=== PATIENT | female | born 1985 | race Caucasian/White ===

== ENCOUNTER 2021-06-03 22:02 | Emergency (ER) | payer OTHER, SELFPAY ==
--- NOTE | ~2021-06-03 | XR_ITS ---
EXAMINATION: XR chest 2V DATE: 06/03/2021 22:37 INDICATION: Chest pain TECHNIQUE: PA and lateral views of the chest are obtained. COMPARISON: None available FINDINGS: The lungs are free of acute opacities. There is no pleural effusion or pneumothorax. The ca rdiomediastinal silhouette is normal. The visualized bones and soft tissues are unremarkable. Surgica l clips in the right upper quadrant are likely from prior cholecystectomy. IMPRESSION: 1. No acute cardiopulmonary abnormality. Reviewed, dictated and finalized at location A.
--- NOTE | 2021-06-03 22:03 | ECG_ITS ---
Measurements Intervals [place] Rate: 79 P: 40 ME: 137 QRS: 2 QRSD: 87 T: 30 QT: 357 QTc: 411 Interpretive Statements SINUS RHYTHM INCOMPLETE RIGHT BUNDLE BRANCH BLOCK BORDERLINE ECG Electronically Signed On 06-04-2021 7:04:04 CDT by Star Bob D.O.
[2021-06-03 22:08] VITALS: BP 118/79; PULSE 86; RESP 18; TEMP 36.4; O2SAT 97
[2021-06-03 22:24] LABS: Basophils Percent Auto 0.3 % (0.2-1.2); Eosinophils Absolute Auto 0.2 K/mm3 (0-0.3); Eosinophils Percent Auto 1.4 % (0-4.4); Hematocrit 42.5 % (37.0-47.0); Hemoglobin 13.8 g/dL (12.0-15.0); Immature Granulocyte Absolute 0.07 K/mm3 (0.00-0.031); Immature Granulocyte Percent A 0.5 % (0-0.5); Immature Platelet Fraction Pct 9.8 % (0.9-11.2); Lymphocytes Absolute Auto 5.92 K/mm3 (0.9-3.2); Lymphocytes Percent Auto 38.6 % (18.3-44.2); Mean Corpuscular HGB Conc 32.5 g/dl (32-36); Mean Corpuscular Hemoglobin 29.7 pg (26-34); Mean Corpuscular Volume 91.6 fl (80-100); Mean Platelet Volume 11.1 fl (7.4-10.4); Monocytes Absolute Auto 0.8 K/mm3 (0.1-0.6); Monocytes Percent Auto 5.3 % (2.6-8.5); Neutrophils Absolute Auto 8.3 K/mm3 (1.3-6.7); Neutrophils Percent Auto 53.9 % (45.5-73.1); Platelet Count Result 143 k/mm3 (150-375); Red Blood Count 4.64 M/mm3 (4.2-5.4); Red Cell Distribution Width 13.2 % (11.5-14.5); White Blood Count 15.4 K/mm3 (4.5-10.0)
[2021-06-03 22:32] LABS: Anion Gap 10 mmol/L (8-16); Blood Urea Nitrogen 16 mg/dL (7-17); Calcium 8.8 mg/dL (8.4-10.2); Carbon Dioxide 28 mmol/L (22-30); Chloride 103 mmol/L (98-107); Estimated CRCL calculation 85 ml/min; Estimated Glomerular Filt Rate > 60; Glucose 106 mg/dL (65-110); INR 0.9; Partial Thromboplastin Time 24.1 SECONDS (22.3-36.8); Potassium 3.7 mmol/L (3.4-5.0); Sodium 141 mmol/L (137-145)
[2021-06-03 22:44] LABS: Troponin I < 0.012 ng/mL (0.000-0.034)
--- NOTE | 2021-06-04 00:55 | PC.NURSE ---
Pt stated that she had a ride coming and would not be waiting for a bed any longer. a/o x 4. good eye contact. ambulatory out of ED wr to wait for ride.
== END 2021-06-04 01:13 | disposition left against medical advice (07) ==
LOC: ANHED 06-04 01:06
PROVIDERS: Emergency Provider Emergency Medicine
DX: R07.9 Chest pain, unspecified (principal)
CPT/HCPCS: 36415; 71046; 80048; 84484; 85025; 85055; 85610; 85730; 93005; 99199

== ENCOUNTER 2021-06-05 13:46 | Emergency (ER) | payer OTHER, SELFPAY ==
[2021-06-05] VITALS (16 sets, daily range): BP systolic 121–144; BP diastolic 75–91; PULSE 94–112; RESP 12–20; TEMP 36.3–36.6; O2SAT 95–98
--- NOTE | ~2021-06-05 | CT_ITS ---
EXAMINATION: CTA chest PE protocol DATE: 06/05/2021 16:41 INDICATION: Shortness of breath. Chest pain. Elevated d-dimer. TECHNIQUE: Computed tomography (CT) pulmonary angiogram of the chest was performed with 100 mL Omnipa que-350 intravenous contrast. Additional 3D reconstructions utilizing coronal maximum intensity proje ction (MIP) were performed. Automated exposure control and iterative reconstruction technique were em ployed. The dose-length product was 643.33 mGy-cm. COMPARISON: None FINDINGS: Good contrast opacification of the pulmonary arteries. There is mild streak artifact from dense contr ast in the superior vena cava and right atrium. Mild scattered respiratory motion artifact. Overall t his is not significantly limit evaluation with no evident pulmonary embolism. Small lung volumes with mosaic attenuation likely representing slightly heterogeneous diffuse mild atelectasis related to ex piratory phase of imaging. Calcified left lower lobe nodule and calcified left hilar lymph nodes cons istent with old granulomatous disease. No other airspace disease concerning for pneumonia. No septal line thickening to suggest pulmonary edema. No pleural effusion or pneumothorax. Heart size is normal . No pericardial effusion. Thoracic aorta is normal in caliber with no dissection. No pathologically enlarged thoracic lymphadenopathy. Post cystectomy clips the gallbladder fossa. Bones are unremarkabl e. IMPRESSION: 1. No pulmonary embolism or other acute cardiopulmonary disease. Reviewed, dictated and finalized at location A.
--- NOTE | ~2021-06-05 | XR_ITS ---
EXAMINATION: XR chest 2V 06/05/2021 15:18 INDICATION: Medial chest pain PROCEDURE: 2 view chest COMPARISON: 06/03/2021 FINDINGS: The lungs are clear. The cardiomediastinal silhouette is within normal limits. There are no pleural effusions. There is no pneumothorax suspected. IMPRESSION: 1: NO ACUTE CARDIOPULMONARY DISEASE. Reviewed, dictated and finalized at location A.
--- NOTE | 2021-06-05 13:48 | ECG_ITS ---
Measurements Intervals [place] Rate: 93 P: 44 WI: 135 QRS: -4 QRSD: 80 T: 12 QT: 335 QTc: 417 Interpretive Statements SINUS RHYTHM DELAYED PRECORDIAL R/S TRANSITION BORDERLINE T WAVE ABNORMALITY- INFERIOR LEADS BORDERLINE ECG Electronically Signed On 06-05-2021 13:57:10 CDT by Star Bob D.O.
[2021-06-05 15:43] LABS: Basophils Percent Auto 0.2 % (0.2-1.2); Eosinophils Absolute Auto 0.4 K/mm3 (0-0.3); Hematocrit 42.1 % (37.0-47.0); Hemoglobin 13.8 g/dL (12.0-15.0); Immature Granulocyte Absolute 0.05 K/mm3 (0.00-0.031); Immature Granulocyte Percent A 0.4 % (0-0.5); Lymphocytes Absolute Auto 3.85 K/mm3 (0.9-3.2); Lymphocytes Percent Auto 30.8 % (18.3-44.2); Mean Corpuscular HGB Conc 32.8 g/dl (32-36); Mean Corpuscular Hemoglobin 29.1 pg (26-34); Mean Corpuscular Volume 88.8 fl (80-100); Mean Platelet Volume 10.3 fl (7.4-10.4); Monocytes Absolute Auto 0.6 K/mm3 (0.1-0.6); Monocytes Percent Auto 4.6 % (2.6-8.5); Neutrophils Absolute Auto 7.6 K/mm3 (1.3-6.7); Platelet Count Result 285 k/mm3 (150-375); Red Blood Count 4.74 M/mm3 (4.2-5.4); Red Cell Distribution Width 13.1 % (11.5-14.5); White Blood Count 12.5 K/mm3 (4.5-10.0)
[2021-06-05 15:53] LABS: INR 0.9; Partial Thromboplastin Time 27.6 SECONDS (22.3-36.8); Prothrombin Time 12.5 Seconds (11.1-14.7)
[2021-06-05 15:54] LABS: Anion Gap 9 mmol/L (8-16); Blood Urea Nitrogen 14 mg/dL (7-17); Calcium 8.8 mg/dL (8.4-10.2); Carbon Dioxide 25 mmol/L (22-30); Chloride 105 mmol/L (98-107); Estimated CRCL calculation 95 ml/min; Estimated Glomerular Filt Rate > 60; Glucose 101 mg/dL (65-110); Potassium 4.2 mmol/L (3.4-5.0); Sodium 139 mmol/L (137-145)
--- NOTE | 2021-06-05 16:03 | PC.NURSE ---
Called lab to request add on of D-Dimer
--- NOTE | 2021-06-05 16:03 | PC.NURSE ---
called lab to add on [email or web address]
[2021-06-05 16:06] LABS: Troponin I < 0.012 ng/mL (0.000-0.034)
[2021-06-05 16:14] LABS: D Dimer 0.54 ug/mL (<0.48)
--- NOTE | 2021-06-05 16:15 | PC.NURSE ---
No aspirin needed per MD.
--- NOTE | 2021-06-05 16:34 | ED.CHESTPAIN ---
HPI - Chest Pain General Chief Complaint: Chest Pain Stated Complaint: CP Time Seen by Provider: 06/05/21 15:37 History of Present Illness HPI narrative: Patient is a 36-year-old female who presents ER with chest pain. Reports began 2 days ago and is sharp and intense in the center of her chest. Is associate with some shortness of breath and sweating at that time. She came to the ER to be evaluated but there was a wait and a lot of Covid people came in so she opted to leave. She reports her pain has continued to improve over the last 2 days after contacting her PCP is recommend she come back to the ER to be evaluated. She has some mild dyspnea. No loss of consciousness. Denies fevers or chills or sweats. She has been noted to have an elevated heart rate while in the ER. She reports she has been having some cramping in her lower extremities. No history of PE. No lower extremity swelling. No recent long distance travel or immobilization/surgery. She does use control. Patient also reports pain is worse with physical movements of her arms. Also occasional with deep breath. Related Data Home Medications Medication Instructions Recorded Confirmed norethindrone-e.estradiol-iron tablet 06/05/21 06/05/21 Allergies Allergy/AdvReac Type Severity Reaction Status Date / Time No Known Allergies Allergy Verified 06/05/21 16:00 Review of Systems Review of Systems: All systems reviewed & are unremarkable except as noted in HPI and below Constitutional: Constitutional: Denies chills, Denies fever(s) and Denies weakness ENT: Denies nasal congestion and Denies sore throat Cardiovascular: Cardiovascular: Reports chest pain, Denies rapid heart rate and Denies radiating jaw, neck or arm pain Respiratory: Respiratory: Denies cough, Reports dyspnea and Denies wheezing Gastrointestinal: Gastrointestinal: Denies abdominal pain, Denies diarrhea, Denies nausea and Denies vomiting [facility] Past Medical History Medical History (Updated 06/05/21 @ 17:06 by Grayson Henrandez MD) Healthy female adult Surgical History Surgical History (Updated 06/05/21 @ 16:37 by Grayson Hernandez MD) History of section History of cholecystectomy Family History Family History (Updated 12/25/17 @ 20:35 by DOCTOR UNKNOWN) Mother Colon polyp Other Asthma Diabetes mellitus Social History Social History Smoking status: Former smoker Second hand tobacco smoke exposure: No Smoking end date: 09/16/16 Alcohol intake: current Exam Narrative: GENERAL: Well-appearing, well-nourished, and in no acute distress. HEAD: Normocephalic, atraumatic. NECK: Supple. CHEST: Clear to auscultation. No respiratory distress. Tender palpation anterior chest wall moving to left side. HEART: Regular rate and rhythm. Normal peripheral pulses. ABDOMEN: Soft, nontender, nondistended. EXTREMITIES: Normal range of motion. No edema. SKIN: Warm, dry, no rash. NEURO: Alert and oriented x3. PSYCH: Normal mood and affect. Course Course Emergency Course: Patient informed results. Toradol for pain. Discharge home. Vital Signs Vital signs: Vital Signs Temperature 98 F 06/05/21 13:54 Pulse Rate 97 06/05/21 13:54 Respiratory Rate 18 06/05/21 13:54 Blood Pressure 130/75 06/05/21 13:54 Pulse Oximetry 96 06/05/21 13:54 Temperature 98 F 06/05/21 13:54 Pulse Rate 99 06/05/21 15:59 Respiratory Rate 18 06/05/21 15:55 Blood Pressure 135/91 H 06/05/21 15:55 Pulse Oximetry 97 06/05/21 15:55 MDM - Chest Pain Lab Data Result diagrams: 06/05/21 15:32 06/05/21 15:32 Labs: Lab Results 06/05/21 06/05/21 06/05/21 Range/Units 15:32 15:32 15:32 WBC 12.5 H (4.5-10.0) K/mm3 RBC 4.74 (4.2-5.4) M/mm3 Hgb 13.8 (12.0-15.0) g/dL Hct 42.1 (37.0-47.0) % MCV 88.8 (80-100) fl MCH 29.1 (26-34) pg MCHC 32.8 (32-36) g/dl RDW 13.1 (11.5-14.5)
[2021-06-05] MEDS: KETOROLAC 30 MG/ML VIAL (*BKC) IV PUSH (17:07)
== END 2021-06-05 17:45 | disposition home or self-care (01) ==
PROVIDERS: Emergency Medicine; Emergency Provider Emergency Medicine; PCP Nurse Practitioner Family
DX: R07.89 Other chest pain (principal); Z87.891 Personal history of nicotine dependence; R94.31 Abnormal electrocardiogram [ECG] [EKG]
CPT/HCPCS: 36415; 71046; 71275; 80048; 81025; 84484; 85025; 85380; 85610; 85730; 93005; 96374; 99284; J1885; Q9967

== ENCOUNTER 2022-12-17 14:39 | Outpatient (CLI) | payer OTHER, SELFPAY ==
--- NOTE | ~2022-12-17 | US_ITS ---
EXAMINATION: US OB transvaginal DATE: 12/17/2022 14:59 INDICATION: First trimester dating TECHNIQUE: Real-time pelvic transabdominal and transvaginal ultrasound was performed. COMPARISON: None. FINDINGS: The uterus measures 11.7 x 6.6 x 7.5 cm. There is an intrauterine gestational sac. A yolk s ac is identified. heart motion is identified measuring 180 beats per minute (bpm) by M-mode Dop pler. The crown rump length measures 1.6 cm, which correlates with an estimated gestational age of 8 weeks and 0 day(s) (+/-) 5 day(s). The right ovary is not visualized however no right adnexal abnormality is seen. The left ovary measur es 3.2 x 2.2 x 3.8 cm. There is normal vascular flow in the left ovary. There is no free fluid in the pelvis. IMPRESSION: 1. Live intrauterine with an estimated gestational age of 8 weeks and 0 day(s) (+/-) 5 day( s) and an estimated delivery date of 07/29/2023. Reviewed, dictated and finalized at location L. IMPRESSION: 1. Live intrauterine with an estimated gestational age of 8 weeks and 0 day(s) (+/-) 5 day(s) and an estimated delivery date of 07/29/2023.
== END 2022-12-17 14:40 ==
LOC: MICIMG 14:40
PROVIDERS: PCP Advanced Practice Midwife; Visit Provider Advanced Practice Midwife
DX: O36.80X0 Pregnancy with inconclusive fetal viability, not applicable or unspecified (principal); Z3A.08 8 weeks gestation of pregnancy
CPT/HCPCS: 76817

== ENCOUNTER 2023-03-07 18:27 | Emergency (ER) | payer OTHER, SELFPAY ==
[2023-03-07 18:33] VITALS: BP 115/63; PULSE 124; RESP 18; TEMP 36.6; O2SAT 99
--- NOTE | 2023-03-07 19:20 | PC.NURSE ---
Pt just informed this RN that she is 20 weeks today, this was not mentioned in triage note.
[2023-03-07 19:21] VITALS: BP 106/70; PULSE 98; RESP 14; O2SAT 99
--- NOTE | 2023-03-07 19:52 | ED.GENADULT ---
HPI - General Adult General Chief complaint: Abdominal Pain Stated complaint: epigastric pain Time Seen by Provider: 03/07/23 19:05 History of Present Illness HPI narrative: this is a pleasant 38-year-old 003 at 20 weeks presenting with epigastric pain. Patient's abdominal pain started 2 hours ago it is located in the epigastric area. Started while she was waving at her dogs. Is a sharp pain that radiates down into her belly when she walks. Seven out 10 in intensity and constant. She has never had pain like this before. She is not taking anything for pain control. Pain is distinctly link to movement. She denies fever chills nausea vomiting or diarrhea. She still feels the baby the baby moving. No urinary symptoms vaginal bleeding or discharge. She had an ultrasound this morning found of the baby was a boy. Related Data Home Medications Medication Instructions Recorded Confirmed norethindrone 1 mg-e. estradiol 20 tablet 06/05/21 06/05/21 mcg (24)-iron 75 mg (4) chew tablet Allergies Allergy/AdvReac Type Severity Reaction Status Date / Time No Known Allergies Allergy Verified 12/13/21 13:12 [facility] Past Medical History Medical History (Updated 03/07/23 @ 19:56 by Denver Leahy MD) Healthy female adult Surgical History Surgical History (System 12/13/21 @ 13:12 by Brenda Jain) History of section History of cholecystectomy Family History Family History (System 12/13/21 @ 13:12 by Brenda Jain) Mother Colon polyp Other Asthma Diabetes mellitus Social History Social History (System 12/13/21 @ 13:12 by Brenda Jain) Smoking status: Former smoker Second hand tobacco smoke exposure: No Smoking end date: 09/16/16 Alcohol intake: current Exam Narrative: APPEARANCE: No apparent distress. Patient is well-appearing Head: atraumatic. EYES: EOMI, NOSE: Atraumatic NECK: Trachea midline RESPIRATORY: No increased rate of breathing CARDIOVASCULAR: RRR, ABDOMINAL: mild tenderness in the epigastric area, no tenderness over the uterus or the rest the abdomen. No guarding or rebound. MUSCULOSKELETAl: No obvious deformities NEURO: Alert. Moving 4/4 extremities SKIN:: Warm, dry. Normal color PSYCHIATRIC: Normal affect Course Vital Signs Vital signs: Vital Signs Temperature 98 F 03/07/23 18:33 Pulse Rate 124 H 03/07/23 18:33 Respiratory Rate 18 03/07/23 18:33 Blood Pressure 115/63 03/07/23 18:33 Pulse Oximetry 99 03/07/23 18:33 Oxygen Delivery Room Air 03/07/23 18:33 Temperature 98 F 03/07/23 18:33 Pulse Rate 87 03/07/23 21:31 Respiratory Rate 18 03/07/23 21:31 Blood Pressure 107/69 03/07/23 21:31 Pulse Oximetry 100 03/07/23 21:31 Oxygen Delivery Room Air 03/07/23 18:33 Medical Decision Making MDM Narrative Medical decision making narrative: -Presentation: 38-year-old woman presenting with sharp epigastric pain. Basic lab work, Tylenol Pepcid and Maalox been given. heart tones will be obtained. Patient is well-appearing with normal vital signs and likely be discharged with OBGYN follow-up. 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 Dx tests considered but not ordered: none -Procedures: none -Interventions: Tylenol, Pepcid, Maalox, 1 L normal saline -Shared decision making / Disposition: laboratory studies were normal. Patient's pain is improv
[2023-03-07] MEDS: SODIUM CHLORIDE 0.9% IV 1,000 ML 999 ML IV CONT (20:29)
[2023-03-07] MEDS: ACETAMINOPHEN 500 MG TABLET 1000 MG PO (20:30)
[2023-03-07] MEDS: FAMOTIDINE 20 MG/2 ML VIAL IV PUSH (20:30)
[2023-03-07] MEDS: MAG HYDROX/AL HYDROX/SIMETH 30 ML UDC PO (20:30)
[2023-03-07 20:35] LABS: Basophils Percent Auto 0.1 % (0.2-1.2); Eosinophils Absolute Auto 0.4 K/mm3 (0-0.3); Eosinophils Percent Auto 3.9 % (0-4.4); Hematocrit 32.2 % (37.0-47.0); Hemoglobin 10.4 g/dL (12.0-15.0); Immature Granulocyte Absolute 0.05 K/mm3 (0.00-0.031); Immature Granulocyte Percent A 0.5 % (0-0.5); Lymphocytes Absolute Auto 2.77 K/mm3 (0.9-3.2); Lymphocytes Percent Auto 25.6 % (18.3-44.2); Mean Corpuscular HGB Conc 32.3 g/dl (32-36); Mean Corpuscular Hemoglobin 27.7 pg (26-34); Mean Corpuscular Volume 85.9 fl (80-100); Mean Platelet Volume 10.8 fl (7.4-10.4); Monocytes Absolute Auto 0.7 K/mm3 (0.1-0.6); Monocytes Percent Auto 6.1 % (2.6-8.5); Neutrophils Absolute Auto 6.9 K/mm3 (1.3-6.7); Neutrophils Percent Auto 63.8 % (45.5-73.1); Platelet Count Result 308 k/mm3 (150-375); Red Blood Count 3.75 M/mm3 (4.2-5.4); Red Cell Distribution Width 14.7 % (11.5-14.5); White Blood Count 10.8 K/mm3 (4.5-10.0)
[2023-03-07 20:43] LABS: Alanine Aminotransferase 16 U/L (6-35); Albumin Level 3.5 g/dL (3.5-5.1); Alkaline Phosphatase 69 U/L (38-126); Anion Gap 4 mmol/L (8-16); Aspartate Amino Transferase 21 U/L (14-36); Bilirubin,Total 0.1 mg/dL (0.2-1.3); Blood Urea Nitrogen 6 mg/dL (7-17); Calcium 8.3 mg/dL (8.4-10.2); Carbon Dioxide 25 mmol/L (22-30); Chloride 107 mmol/L (98-107); Estimated CRCL calculation 139 ml/min; Estimated Glomerular Filt Rate > 60; Glucose 85 mg/dL (65-110); Lipase 60 U/L (23-300); Potassium 3.7 mmol/L (3.4-5.0); Sodium 136 mmol/L (137-145)
[2023-03-07 21:31] VITALS: BP 107/69; PULSE 87; RESP 18; O2SAT 100
[2023-03-07 22:16] VITALS: BP 118/83; PULSE 89; RESP 16; O2SAT 100
== END 2023-03-07 22:31 | disposition home or self-care (01) ==
PROVIDERS: Emergency Provider Emergency Medicine; PCP Nurse Practitioner Family
DX: O26.892 Other specified pregnancy related conditions, second trimester (principal); R10.13 Epigastric pain; Z87.891 Personal history of nicotine dependence; Z90.49 Acquired absence of other specified parts of digestive tract; Z3A.20 20 weeks gestation of pregnancy
CPT/HCPCS: 36415; 80053; 83690; 85025; 96361; 96374; 99284; A9270; J7030

== ENCOUNTER 2023-06-01 14:17 | Outpatient (RCR) | payer OTHER, SELFPAY ==
--- NOTE | ~2023-06-01 | US_ITS ---
EXAMINATION: US OB limited DATE: 06/01/2023 15:52 INDICATION: Decreased movement during third trimester . TECHNIQUE: Real-time ultrasound of the pelvis was performed. The interpreting radiologist was not pre sent for the study. COMPARISON: None. FINDINGS: There is a single living fetus in vertex presentation. The placenta is fundal. heart rate is 1 35 beats per minute (bpm). The amniotic fluid index is 17.0 cm, which is normal (5th%-95%: 8.6-24.2 c m at 32 weeks estimated gestational age). IMPRESSION: 1. Single living fetus in vertex presentation with heart rate of 135 bpm. 2. Normal amniotic fluid index of 17.0 cm. Reviewed, dictated and finalized at location A.
[2023-06-01 16:25] VITALS: BP 97/60; PULSE 48
== END 2023-08-01 10:51 | disposition home or self-care (01) ==
LOC: ANHOBOP 14:17
PROVIDERS: PCP Nurse Practitioner Family; Visit Provider Obstetrics & Gynecology Gynecology
DX: O36.8190 Decreased fetal movements, unspecified trimester, not applicable or unspecified (principal); Z3A.32 32 weeks gestation of pregnancy
CPT/HCPCS: 59025; 76815

== ENCOUNTER 2023-07-05 10:32 | Observation (INO) | payer OTHER, SELFPAY ==
[2023-07-05 11:15] VITALS: BP 99/66; PULSE 104
[2023-07-05 11:30] VITALS: BP 104/69; PULSE 101
[2023-07-05 11:45] VITALS: BP 102/69; PULSE 95
[2023-07-05 12:00] VITALS: BP 107/66; PULSE 102
[2023-07-05 12:15] VITALS: BP 105/71; PULSE 93
--- NOTE | 2023-07-08 10:13 | PM.OBTRLD ---
OB - Triage/Final Diagnosis Visit Information Reason for evaluation: other (vaginal bleeding) Comments/Additional reasons for admission: I have assessed the risk for this patient, Hedy Tamera Luna, and determined that she would benefit from observation care.
== END 2023-07-05 12:40 | disposition home or self-care (01) ==
PROVIDERS: Admitting Provider Obstetrics & Gynecology Gynecology; PCP Nurse Practitioner Family; Visit Provider Obstetrics & Gynecology Gynecology
DX: O26.853 Spotting complicating pregnancy, third trimester (principal); Z3A.37 37 weeks gestation of pregnancy
CPT/HCPCS: G0378; G0379

== ENCOUNTER 2023-07-15 09:05 | Outpatient (CLI) | payer OTHER, SELFPAY ==
[2023-07-15 09:48] LABS: Basophils Percent Auto 0.1 % (0.2-1.2); Eosinophils Absolute Auto 0.3 K/mm3 (0-0.3); Eosinophils Percent Auto 2.7 % (0-4.4); Hematocrit 37.2 % (37.0-47.0); Hemoglobin 11.8 g/dL (12.0-15.0); Immature Granulocyte Absolute 0.08 K/mm3 (0.00-0.031); Immature Granulocyte Percent A 0.7 % (0-0.5); Lymphocytes Absolute Auto 2.36 K/mm3 (0.9-3.2); Lymphocytes Percent Auto 21.5 % (18.3-44.2); Mean Corpuscular HGB Conc 31.7 g/dl (32-36); Mean Corpuscular Hemoglobin 28.6 pg (26-34); Mean Corpuscular Volume 90.1 fl (80-100); Mean Platelet Volume 11.9 fl (7.4-10.4); Monocytes Absolute Auto 0.6 K/mm3 (0.1-0.6); Monocytes Percent Auto 5.1 % (2.6-8.5); Neutrophils Absolute Auto 7.7 K/mm3 (1.3-6.7); Neutrophils Percent Auto 69.9 % (45.5-73.1); Platelet Count Result 205 k/mm3 (150-375); Red Blood Count 4.13 M/mm3 (4.2-5.4); Red Cell Distribution Width 15.2 % (11.5-14.5)
[2023-07-16 14:26] LABS: Rapid Plasma Reagin Non-Reactive (NonReactive)
== END 2023-07-15 09:06 | disposition home or self-care (01) ==
PROVIDERS: PCP Nurse Practitioner Family; Visit Provider Obstetrics & Gynecology Gynecology
DX: Z01.818 Encounter for other preprocedural examination (principal)
CPT/HCPCS: 36415; 85025; 86592; 86850; 86900; 86901

== ENCOUNTER 2023-07-17 05:28 | Inpatient (IN) | payer OTHER, SELFPAY ==
--- NOTE | 2023-07-16 18:10 | PM.IMHP ---
H&P: HPI History of Present Illness Date/Time: 07/16/23 18:10 Chief Complaint: repeat csection and sterilization Narrative: 38 yo at 39 wks presenting for repeat csection and bilateral salpingectomy. Patient complicated by a velementous insertion of her placenta and AMA. Level 2 u/s's with Belinda have shown good growth. labs: O+, Rubella immune, RPR -, HIV -, HBSAg -, GBS -. She has completed her childbearing and wishes to proceed with permanent sterilization. Risks of failure and increased ectopic as well as risks of 4th csection were reviewed. Review of Systems Review of Systems: not repeated day of surgery; patient states no changes in status PMFSH Past Medical History Medical History (Updated 07/16/23 @ 18:18 by Sofie Silverman MD) Advanced maternal age (AMA) in Surgical History Surgical History (Updated 07/16/23 @ 18:18 by Sofie Silverman MD) History of section x3 History of cholecystectomy Family History Family History (Updated 07/03/23 @ 13:46 by Franci Leonardo RN) Mother Colon polyp Grandparent Diabetes mellitus Son Asthma Social History Social History (System 12/13/21 @ 13:12 by Brenda Jain) Smoking status: Former smoker Second hand tobacco smoke exposure: No Smoking end date: 09/16/16 Alcohol intake: current Substance use: never Spiritual care concerns: No Meds Home Medications and Allergies Home Medications Medication Instructions Recorded Confirmed Type albuterol sulfate 90 mcg/actuation 2 puff inhalation QID PRN Wheezing 07/03/23 07/03/23 History aerosol inhaler aspirin 81 mg tablet 81 mg PO DAILY 07/03/23 07/03/23 History cholecalciferol (vitamin D3) 1,250 1,250 mcg PO WEEKLY 07/03/23 07/03/23 History mcg (50,000 unit) tablet ferrous sulfate 325 mg (65 mg 325 mg PO DAILY 07/03/23 07/03/23 History iron) tablet prenat.vits,armin,nra-lfdw-avamd 1 tablet 07/03/23 History Allergies Allergy/AdvReac Type Severity Reaction Status Date / Time No Known Allergies Allergy Verified 12/13/21 13:12 Exam Const: General: healthy appearing, alert and other (weight 218 (prepreg wt. 200)) Orientation/consciousness: patient oriented x3 Resp: Effort & Inspection: normal respiratory effort GI: GI Palp: Yes Soft to palpation, No Tenderness to palpation present (GI) and Yes Other GI palpation findings present (gravid with fundal height 40) : External Female Exam: normal external appearance Neuro: General: patient oriented x3 Assessment and Plan Assessment and plan (1) 39 weeks gestation of : Code(s): Z3A.39 - 39 weeks gestation of Status: Acute (2) History of section: Code(s): Z98.891 - History of uterine scar from previous surgery Status: Acute Assessment and Plan: Plan to proceed with repeat csection (3) Encounter for sterilization: Code(s): Z30.2 - Encounter for sterilization Status: Acute Assessment and Plan: plan to proceed with salpingectomy
[2023-07-17] VITALS (39 sets, daily range): BP systolic 90–118; BP diastolic 43–87; PULSE 75–111; RESP 12–16; TEMP 36.1–37; O2SAT 94–99; BMI 38.6
[2023-07-17] MEDS: LACTATED RINGERS 1,000 ML 125 ML IV CONT ×2 (06:19→07:11)
--- NOTE | 2023-07-17 06:21 | LDADM ---
This patient, Hedy Luna, was admitted to Labor/Delivery/Recovery 120 on 07/17/23 at 05:28. Plans for labor, pain management and were discussed with patient. Patient/family oriented to hospital policies and general routines including ID bracelet, bed and alarms, visiting hours, pain management, procedures, bathroom and other care routines, personal items, smoking policy, room service/diet and guest tray routines, security routines, and visiting hours. Patient/Family are encouraged to report perceived risks to care and to ask questions if they do not understand what they are told or what they should do. See OBIX for further documentation.
--- NOTE | 2023-07-17 06:34 | WPDANESEPPF ---
Anes - Initial Pre Proc Eval Procedure: Operation Date: 07/17/23 07:30 Proposed Procedures p Section with Bilateral Salpingectomy - Sofie Silverman MD Date/Time: 07/17/23 06:34 Surgeon: Sofie Silverman MD Pre Op Diagnosis: Rep. Patient Data Age: 38 Gender: F Height: 1.6 m Weight: 99 kg Last Vital Signs O2 Del Method Room Air 07/17/23 06:21 Allergies Allergy/AdvReac Type Severity Reaction Status Date / Time No Known Allergies Allergy Verified 12/13/21 13:12 Home Medications Medication Instructions Recorded Confirmed Type albuterol sulfate 90 mcg/actuation 2 puff inhalation QID PRN Wheezing 07/03/23 07/03/23 History aerosol inhaler aspirin 81 mg tablet 81 mg PO DAILY 07/03/23 07/03/23 History cholecalciferol (vitamin D3) 1,250 1,250 mcg PO WEEKLY 07/03/23 07/03/23 History mcg (50,000 unit) tablet ferrous sulfate 325 mg (65 mg 325 mg PO DAILY 07/03/23 07/03/23 History iron) tablet prenat.vits,armin,eos-gsko-nurmr 1 tablet 07/03/23 History Patient hx anesthesia problems: none Family hx anesthesia problems: none Results Review: All pre-operative results and documents have been reviewed as part of the pre-operative evaluation. [facility], [facility] Past Medical History Medical History (Updated 07/17/23 @ 06:36 by Brown Huff DO) Advanced maternal age (AMA) in Asthma Surgical History Surgical History (Updated 07/16/23 @ 18:18 by Sofie Silverman MD) History of section x3 History of cholecystectomy Family History Family History (Updated 07/03/23 @ 13:46 by Franci Leonardo RN) Mother Colon polyp Grandparent Diabetes mellitus Son Asthma Social History Social History (System 12/13/21 @ 13:12 by Brenda Jain) Smoking status: Never smoker Second hand tobacco smoke exposure: No Smoking end date: 09/16/16 Alcohol intake: current Substance use: never Lack of Transportation: No Lack of Food: Never True Current Housing: I Have Housing Concerned About Future Housing: No Difficulty Paying Gas/Electric Bills: No Difficulty Paying for Meds: No Currently Unemployed: No Education: Associate Degree Difficulty w/ Childcare or Family Care: No Spiritual care concerns: No Anes - Eval Final PreProcedure Day of Procedure 07/17/23 06:34 Patient weight: obese Heart: regular rate and rhythm Lungs: clear to auscultation and normal air movement Airway: Mallampati scale class II Neurological: alert and oriented Last oral intake: >/= 8 hours ASA classification: II Emergent: no Anesthetic plan: proceed Anesthesia type and monitoring: regional spinal and standard monitoring Results Review: All pre-operative results and documents have been reviewed as part of the pre-operative evaluation. Informed Consent: The patient's anesthetic plan and its attendant risks and benefits were discussed with the patient/family/POA. Questions were solicited and answers provided to the satisfaction of the patient/family/POA.
--- NOTE | 2023-07-17 07:07 | WPDHPUPDATE1 ---
History and Physical Update Update Date/Time: 07/17/23 07:07 History and Physical has been reviewed, including an updated exam of the patient. There are NO changes in the patient's condition. Risks, benefits, and alternatives have been discussed and questions answered. Patient agrees to proceed with procedure.
[2023-07-17] MEDS: ceFAZolin 2 GM/D5W 50 ML 2 GM/50 ML BAG IVPB (07:28)
--- NOTE | 2023-07-17 08:27 | W.PM.PROC2 ---
Procedure Note - Detailed Date of Procedure 07/17/23 Pre-op Diagnosis Intrauterine at 39 weeks Previous section x3 Request sterilization Post-op Diagnosis Same Procedure Performed Repeat low-transverse section and bilateral salpingectomy Surgeon Sofie Silverman MD Anesthesia Spinal Findings Male infant with Apgars of 8 at 1 and 9 ci4tthxam weighing 7lb 7oz. Placenta is filamentous insertion. Lower uterine segment was very thin and the hair was visible through the uterine muscle. Meconium fluid. Normal-appearing tubes and ovaries. Description of Procedure The patient is taken to the operating room and placed under anesthesia in the dorsal supine position with a leftward tilt. Once anesthesia was deemed adequate she was prepped and draped in the usual sterile fashion. Pfannenstiel skin incision was made through the prior upper incision. The incision was carried down to the fascia which was nicked in the midline and extended with Corbin scissors. [facility] was used to tent the fascia which was then dissected off using sharp dissection due to adhesions. The rectus muscles were densely adherent in the midline and are incised with a scalpel. The Peon was then able to be used to separate them. The incision is extended between the muscles bluntly. The peritoneum was tented with a Peon and entered with Metzenbaum scissors. The incision was extended with blunt traction. The bladder blade is placed. The vesicouterine peritoneum was tented and entered with Metzenbaum scissors. The incision was extended laterally and bladder flap created digitally. Lower urine segment is very thin upon inspection. The lower uterine segment was incised with a scalpel and extended laterally. Membranes are ruptured during this process. The fluid is meconium stained. The vertex is guided through the incision as the technical services assistant applied fundal pressure. The remainder of the delivered quickly and the delayed cord clamping for [id number] occurred. The cord was then clamped and cut and the handed to the OB nurse. The placenta is attempted to be removed using manual traction with the cord immediately avulsed as it is very minimally attached with Brazos's jelly and is a velamentous insertion. The placenta was then removed manually. The uterus is cleared of all clots and debris and exteriorized. The uterine incision was closed using 0 Monocryl in a running locked fashion with the same suture used to imbricate and obtain hemostasis. The right tube was then grasped with a Javi the majority of the distal tube cross clamped at the mesosalpinx with a Z clamp. The tube was excised and the pedicle suture ligated and free tied with 0 Vicryl. The identical procedure was then performed on the left side. Good hemostasis is noted at both pedicles. The uterine incision was again inspected noted to be hemostatic. The cul-de-sac and gutters are irrigated. The uterus was returned to the abdomen. The incision was again inspected noted to be hemostatic. The fascia was closed using 0 Vicryl in a running fashion. Subcutaneous tissues were irrigated and noted to be hemostatic. Skin is closed using 4-0 Vicryl in a subcuticular fashion. Dermaflex was placed over the incision. Sponge, needle, and instrument counts are correct per the OR staff. Patient was taken to recovery in stable condition. Estimated Blood Loss 290 Drains Yes (Sutherland catheter) Pathology Yes (Bilateral tubes) Complications No immediate complications Condition Stable Disposition Floor
--- NOTE | 2023-07-17 08:33 | PM.OBDSVD ---
DS: Admitting Diagnosis Discharge Date 07/19/23 Admitting Diagnosis Intrauterine at 39 weeks Previous x3 Request sterilization DS: Discharge Diagnosis Discharge Diagnosis (1) Delivery by section using transverse incision of lower segment of uterus: Code(s): O82 - Encounter for delivery without indication Status: Acute (2) Status post bilateral salpingectomy: Code(s): Z90.79 - Acquired absence of other genital organ(s) Status: Acute OB - DS: Summary OB Procedures : NST and Ultrasound OB Procedures Intrapartum: low cervical, transverse and Tubal ligation ( bilateral salpingectomy) OB Procedures: : None Peripartum Data Delivery Method: Section Procedures: Procedures Operation Date: 07/17/23 07:30 <No data on this case meets the specified criteria> complications: none Status at Discharge Functional status at discharge: independent ambulation Overall status at discharge: patient is progressing back to baseline Time Spent with Patient Time attestation: Total time spent providing and/or coordinating discharge services: Discharge Plan Discharge Attending physician on discharge: Sofie Silverman Discharging Clinician: Sofie Silverman Anticipated Discharge Date/Time: 07/19/23 08:35 Patient Disposition: Home, Self-Care Activity: may shower, may drive after 2 weeks and pelvic rest Diet: regular Wound Care Instructions: incision open to air Patient Instructions: Antibiotic Form Stand Alone Forms: General Discharge Information Follow-up/Referrals: Sofie Silverman MD [Physician] - 1 Week (And 6 week) Discharge Medications: Continued ferrous sulfate 325 mg (65 mg iron) Tablet 325 mg PO DAILY prenat.vits,armin,[id number] Tablet 1 tablet cholecalciferol (vitamin D3) 1,250 mcg (50,000 unit) Tablet 1,250 mcg PO WEEKLY albuterol sulfate 90 mcg/actuation Hfa Aerosol Inhaler 2 puff INHALATION QID PRN (Reason: Wheezing) Discontinued aspirin 81 mg Tablet 81 mg PO DAILY Date of admission: 07/17/23 05:28 Primary Care Provider: TaylorHailey Admitting Provider: Sofie Silverman Attending physician on admission: Sofie Silverman Condition: Stable
[2023-07-17] MEDS: OXYTOCIN 30 UNITS/NS 500 ML 30 UNITS/500 ML BAG 125 UNITS IV CONT (09:05)
[2023-07-17] MEDS: MORPHINE SULFATE INJ (*CRX) 10 MG/ML AMP 2 MG IV PUSH (10:00)
[2023-07-17] MEDS: KETOROLAC 30 MG/ML VIAL (*BKC) IV PUSH ×2 (11:32→19:45)
[2023-07-17] MEDS: ONDANSETRON INJ 4 MG/2 ML VIAL IV PUSH (13:04)
[2023-07-18 05:00] VITALS: BP 118/79; PULSE 78; RESP 16; TEMP 36.8
[2023-07-18] MEDS: KETOROLAC 30 MG/ML VIAL (*BKC) IV PUSH (05:00)
[2023-07-18 05:17] LABS: Basophils Percent Auto 0.1 % (0.2-1.2); Eosinophils Absolute Auto 0.2 K/mm3 (0-0.3); Eosinophils Percent Auto 1.3 % (0-4.4); Hematocrit 32.4 % (37.0-47.0); Hemoglobin 10.4 g/dL (12.0-15.0); Immature Granulocyte Absolute 0.06 K/mm3 (0.00-0.031); Immature Granulocyte Percent A 0.5 % (0-0.5); Lymphocytes Percent Auto 15.2 % (18.3-44.2); Mean Corpuscular HGB Conc 32.1 g/dl (32-36); Mean Corpuscular Hemoglobin 28.8 pg (26-34); Mean Corpuscular Volume 89.8 fl (80-100); Mean Platelet Volume 11.8 fl (7.4-10.4); Monocytes Absolute Auto 0.6 K/mm3 (0.1-0.6); Monocytes Percent Auto 4.9 % (2.6-8.5); Neutrophils Absolute Auto 9.8 K/mm3 (1.3-6.7); Platelet Count Result 169 k/mm3 (150-375); Red Blood Count 3.61 M/mm3 (4.2-5.4); White Blood Count 12.5 K/mm3 (4.5-10.0)
[2023-07-18 07:04] VITALS: BP 86/54; PULSE 90; RESP 18; TEMP 36.3; O2SAT 97
[2023-07-18] MEDS: DOCUSATE SODIUM 100 MG CAPSULE PO ×2 (08:26→16:41)
[2023-07-18] MEDS: MULTIVIT/MIN/PREN/FOL AC/IRON TABLET 1 TAB PO (08:26)
[2023-07-18] MEDS: ACETAMINOPHEN 325 MG TABLET 650 MG PO ×3 (08:26→23:52)
[2023-07-18] MEDS: LANOLIN (LANSINOH) 7.5 GM CREAM 1 APPLIC TOPICAL (08:27)
--- NOTE | 2023-07-18 08:49 | P.PNOB_ITS ---
OB - PN: Subj Subjective Date/time seen: 07/18/23 08:49 Patient comments: no complaints and pain well controlled baby status: doing well OB - PN: Obj Data Labs 07/18/23 05:05 Labs: Laboratory Results - last 24 hr 07/18/23 05:05 WBC 12.5 H RBC 3.61 L Hgb 10.4 L Hct 32.4 L MCV 89.8 MCH 28.8 MCHC 32.1 RDW 15.0 H Plt Count 169 MPV 11.8 H Immature Gran % (Auto) 0.5 Neut % (Auto) 78.0 H Lymph % (Auto) 15.2 L [place] % (Auto) 4.9 Eos % (Auto) 1.3 Baso % (Auto) 0.1 L Lymph # (Auto) 1.90 [place] # (Auto) 0.6 Eos # (Auto) 0.2 Baso # (Auto) 0.0 Abs Immat Gran (auto) 0.06 H Absolute Neuts (auto) 9.8 H Absolute Nucleated RBC 0.0 Nucleated RBC % 0.0 OB - PN A/P Plan day: 1 Plan: routine care Time Spent With Patient Time: Total time spent is greater than 50% in coordination of care (as documented) at patient's floor/unit and/or counseling patient: Exam Narrative: inc c/d/i : Bimanual exam- vagina & uterus: other (Uterus firm, nt @U)
--- NOTE | 2023-07-18 14:03 | PC.NURSE ---
0845 Introductions were made, then consulted with patient to assess needs related to . Mother led the conversation with her?plans to feed?her and the?experience so far. Mother works well with her with encouragement and education. Encouraged understanding of the benefits of skin to skin (demonstrating unwrapping and placing upright on her chest), stimulating with massage touch, changing positions to encourage wakefulness, how to watch for early feeding cues, responsive feeding, feeding on demand (aiming for 8-12 times in 24 hours, about every 2-3 hours), milk production, building/maintaining a milk supply, duration of feeding, signs of adequate intake/output and how to record on the feeding sheet. Reviewed positioning and ear, shoulder, hip alignment, supporting the breast to facilitate a deep latch, asymmetrical latch (off-center), leading with the chin with a big, open, wide gape and body close to mother. Infant latched optimally to the right and left breast in football position. Education given to mother of how to visualize suck/swallow ratios and listen for drinking at the breast. Infant was able to maintain latch without discomfort to mother. Nipple care reviewed with optimal latch and good positioning. Reminding mother of comfort measures of healing with a warm and wet washcloth to rinse breast, then leave open to air-dry as needed. Reviewed good handwashing when or touching the breast/nipples to prevent infection. Resources used to facilitate learning were used with the visual handouts/ tool/mom and baby guide. Mother voiced understanding of skin to skin, stimulating with massage touch, responsive feedings, hand expressed colostrum, talking to infant to encourage if it has been 2 -2.5 hours since the start of the last , to call if does not latch, or if there is discomfort with . Resources provided for inpatient/outpatient with business card, feeding sheet and the mom/baby guide. Parents voiced understanding of information, demonstrated learning and will call if there is a request for assistance. Reported to primary RN.
--- NOTE | 2023-07-18 14:10 | WPDANLDPN2 ---
Anes-Prog Note L&D Date/Time: 07/18/23 14:10 Neuro status: Neuro function grossly intact. Vital Signs: Last Vital Signs Temp 36.3 C L 07/18/23 07:04 Pulse 90 07/18/23 07:04 Resp 18 07/18/23 07:04 BP 86/54 L 07/18/23 07:04 Pulse Ox 97 07/18/23 07:04 O2 Del Method Room Air 07/17/23 08:40 Pain score (VAS): 0 I/O: Intake & Output 07/17/23 07/18/23 07/18/23 23:59 07:59 15:59 Intake Total 1000 1000 Output Total 425 1500 500 Balance 575 -500 -500 Patient feedback: Patient satisfied with anesthetic care.
--- NOTE | 2023-07-18 14:10 | WPDANLDNPN2 ---
Anes-Prog Note L&D-Neuraxial Date/Time: 07/18/23 14:10 Patient feedback: Patient satisfied with post-operative pain management.
--- NOTE | 2023-07-18 14:38 | PC.NURSE ---
4450 Introductions were made, then consulted with patient to assess needs related to . Mother led the conversation with her?plans to feed?her and the?experience so far. Mom states that baby is latching well and feeding well at the breast. She does not believe she needs assistance at this time. Mother expressed desire to pump only and feed baby by bottle once home. Resources provided for inpatient and outpatient services with the feeding sheet, mom/baby guide and name written on the white board. Mother voiced understanding of information and will call if there is a request for assistance. Reported to the primary RN.
[2023-07-18] MEDS: IBUPROFEN 600 MG TABLET PO ×2 (15:03→23:52)
--- NOTE | 2023-07-18 16:19 | PCDIET ---
0945 Introductions were made, then consulted with patient to assess needs related to . Mother led the conversation with her?plans to feed?her and the?experience so far. Resources provided for inpatient and outpatient services with the feeding sheet, mom/baby guide and name written on the white board. Mother voiced understanding of information and will call if there is a request for assistance. Reported to the primary RN.
--- NOTE | 2023-07-18 16:20 | PC.NURSE ---
1545 Mother works well with her infant with encouragement and education. Encouraged understanding of the benefits of skin to skin (demonstrating unwrapping infant and placing upright on her chest), stimulating with massage touch, changing positions to encourage wakefulness, how to watch for early feeding cues, responsive feeding, feeding on demand (aiming for 8-12 times in 24 hours, about every 2-3 hours), milk production, building/maintaining a milk supply, duration of feeding, signs of adequate intake/output and how to record on the feeding sheet. Reviewed positioning and ear, shoulder, hip alignment, supporting the breast to facilitate a deep latch, asymmetrical latch (off-center), leading with the chin with a big, open, wide gape and body close to mother. Infant latched optimally to both breasts in football position. Education given to mother of how to visualize suck/swallow ratios and listen for drinking at the breast. Infant was able to maintain latch without discomfort to mother. Nipple care reviewed with optimal latch and good positioning. Reminding mother of comfort measures of healing with a warm and wet washcloth to rinse breast, then leave open to air-dry as needed. Reviewed good handwashing when or touching the breast/nipples to prevent infection. Resources used to facilitate learning were used with the visual handouts and mom and baby guide. Mother voiced understanding of skin to skin, stimulating with massage touch, responsive feedings, hand expressed colostrum, talking to infant to encourage if it has been 2 -2.5 hours since the start of the last , to call if infant does not latch, or if there is discomfort with . Resources provided for inpatient/outpatient with business card, feeding sheet and the mom/baby guide. Parents voiced understanding of information, demonstrated learning and will call if there is a request for assistance. Reported to primary RN.
[2023-07-18 18:55] VITALS: BP 97/61; PULSE 99; RESP 16; TEMP 36.8
--- NOTE | 2023-07-19 05:48 | PM.OBPNVD ---
OB - PN: Subj Subjective Date/time seen: 07/19/23 05:48 Patient comments: no complaints and pain well controlled (just taking tylenol and motrin) baby status: doing well OB - PN: Obj Data Labs 07/18/23 05:05 OB - PN A/P Plan day: 2 Plan: routine care, discharge home and other (s/p BTL) Time Spent With Patient Time: Total time spent is greater than 50% in coordination of care (as documented) at patient's floor/unit and/or counseling patient: Exam Narrative: inc c/d/i : Bimanual exam- vagina & uterus: other (Uterus firm, nt @U)
[2023-07-19 07:45] VITALS: BP 100/59; PULSE 88; RESP 18; TEMP 36.8; O2SAT 99
[2023-07-19] MEDS: ACETAMINOPHEN 325 MG TABLET 650 MG PO (08:20)
[2023-07-19] MEDS: MULTIVIT/MIN/PREN/FOL AC/IRON TABLET 1 TAB PO (08:21)
[2023-07-19] MEDS: DOCUSATE SODIUM 100 MG CAPSULE PO (08:22)
--- NOTE | 2023-07-19 16:40 | PC.NURSE ---
1000 Patient viewed the discharge video Mother & Baby Care, The First Two Weeks . Patient was given the opportunity and encouraged to ask questions. Patient verbalized understanding of information shared and has been given the mother/baby guide for home reference.
== END 2023-07-19 11:10 | disposition home or self-care (01) | DRG 798 ==
LOC: ANHLDR 08:35 → ANHOB2 10:58
PROVIDERS: Admitting Provider Obstetrics & Gynecology Gynecology; PCP Nurse Practitioner Family; Visit Provider Obstetrics & Gynecology Gynecology
PROC: 10E0XZZ Delivery of Products of Conception, External Approach (ICD-10-PCS; CPT 59514; principal; 2023-07-17 07:30)
DX: O34.219 Maternal care for unspecified type scar from previous cesarean delivery (principal); Z37.0 Single live birth; O77.0 Labor and delivery complicated by meconium in amniotic fluid; O43.123 Velamentous insertion of umbilical cord, third trimester; Z30.2 Encounter for sterilization; Z3A.38 38 weeks gestation of pregnancy; Z90.49 Acquired absence of other specified parts of digestive tract; Z87.891 Personal history of nicotine dependence
CPT/HCPCS: 36415; 85025; 86592; 86850; 86900; 86901; 88302; A9270; J0690; J1885; J2270; J2274; J2371; J2405; J2590; J7120

== ENCOUNTER 2024-06-08 13:54 | Emergency (ER) | payer OTHER, SELFPAY ==
--- NOTE | ~2024-06-08 | XR_ITS ---
EXAMINATION: XR ankle LT min 3V DATE: 06/08/2024 14:15 INDICATION: Left ankle injury and swelling. TECHNIQUE: 4 views of left ankle were obtained. COMPARISON: None. FINDINGS: Alignment is normal. No fracture. Joint spaces are normal. There is ankle soft tissue swell ing. IMPRESSION: 1. No fracture. Reviewed, dictated and finalized at location A. IMPRESSION: 1. No fracture.
[2024-06-08 13:58] VITALS: BP 120/81; PULSE 92; RESP 16; TEMP 36.8; O2SAT 97
--- NOTE | 2024-06-08 14:03 | ED.LOWEXIN ---
HPI - Extremity Injury (Lower) General Chief Complaint: Extremity Injury, Lower Stated Complaint: Injured Left Ankle Time Seen by Provider: 06/08/24 14:08 Source: patient, RN notes reviewed and old records reviewed Mode of arrival: wheelchair (placed in W/C on arrival) Limitations: no limitations History of Present Illness HPI Narrative: 39 year old female who presents to [facility] with complaints of stepping off uneven surface in her garage around 1300 today while going to her vehicle in driveway.. Patient reports that she rolled and twisted her left ankle with acute pain to her left lateral ankle and increased pain with attempted weight bearing. Patien has noted tenderness and swelling to the left lateral ankle. Patient reports increased pain when attempting to plantarflex her left foot. Patient reports that they are in process of moving. MD complaint: ankle injury Onset (ago): hour(s) (1300 today) Type of Injury: other (twisted rolled ankle) Place: home Severity scale (1-10): 7 Treatments prior to arrival: other (none) Related Data Home Medications Medication Instructions Recorded Confirmed No Home Medications 06/08/24 06/08/24 Allergies Allergy/AdvReac Type Severity Reaction Status Date / Time No Known Allergies Allergy Verified 06/08/24 14:00 Review of Systems Review of Systems: CONSTITUTIONAL: Denies fever, chills, or sweats. EYES: Denies visual changes, redness, or discharge. ENT: Denies rhinorrhea, congestion, sore throat, or otalgia. CARDIOVASCULAR: Denies chest pain, palpitations, or edema. RESPIRATORY: Denies cough or dyspnea. GASTROINTESTINAL: Denies abdominal pain, nausea, vomiting, or diarrhea. GENITOURINARY: Denies dysuria or hematuria. SKIN: Denies rash or itching. MUSCULOSKELETAL: Denies back pain,pain to left lateral ankle joint, or myalgia. NEUROLOGIC: Denies headache, numbness, or weakness. PSYCHIATRIC: Denies anxiety or depression. All systems reviewed & are unremarkable except as noted in HPI and below PMFSH Past Medical History Medical History Advanced maternal age (AMA) in Asthma Surgical History Surgical History History of section x3 History of cholecystectomy Family History Family History Mother Colon polyp Grandparent Diabetes mellitus Son Asthma Social History Social History Smoking status: Former smoker Second hand tobacco smoke exposure: No Smoking end date: 09/16/16 Alcohol intake: current Substance use: never Lack of Transportation: No Lack of Food: Never True Current Housing: I Have Housing Concerned About Future Housing: No Difficulty Paying Gas/Electric Bills: No Difficulty Paying for Meds: No Currently Unemployed: No Education: Associate Degree Difficulty w/ Childcare or Family Care: No Spiritual care concerns: No Comments At time of signature, agree with nursing past medical, surgical, social and family history. There is no relevant family history pertinent to the presenting complaint Exam Narrative: GENERAL: Well-appearing, well-nourished, and in no acute distress. HEAD: Normocephalic, atraumatic. EYES: PERRLA and EOMI. ENT: Nares clear, no rhinorrhea or epistaxis. Mucous membranes moist. NECK: Supple. no lymphadenopathy CHEST: Clear to auscultation. No respiratory distress.SAO2 97% on room air HEART: Regular rate and rhythm. No murmur heard. Normal peripheral pulses. ABDOMEN: Soft, nontender, nondistended, normal active bowel sounds. EXTREMITIES: Normal range of motion. No edema.Exception noted to lateral left ankle with palpable pain and swelling lateral aspect. strong left pedal pulse present, increaed pain with attempted plantarflexion, reports no tingling or numbness to her
== END 2024-06-08 14:50 | disposition home or self-care (01) ==
PROVIDERS: Emergency Provider Registered Nurse; PCP Nurse Practitioner Family
DX: S93.402A Sprain of unspecified ligament of left ankle, initial encounter (principal); X50.9XXA Other and unspecified overexertion or strenuous movements or postures, initial encounter; Z87.891 Personal history of nicotine dependence; J45.909 Unspecified asthma, uncomplicated
CPT/HCPCS: 73610; 99213; G0463

== ENCOUNTER 2024-06-20 18:59 | Emergency (ER) | payer OTHER, SELFPAY ==
--- NOTE | ~2024-06-20 | XR_ITS ---
EXAMINATION: XR chest 2V Exam Date/Time: 06/20/2024 19:37 CDT HISTORY: Cough, fevers x2 days Comparison: 06/05/2021. RESULT: Lines, tubes, and devices: Cholecystectomy clips. Lungs and pleura: Clear. Cardiomediastinal silhouette: Stable. Other: No acute osseous or upper abdominal finding. IMPRESSION: No acute cardiopulmonary process. Reviewed, dictated and finalized at location K.
--- NOTE | 2024-06-20 19:13 | ED.URI ---
HPI - URI/Sore Throat General Chief Complaint: Upper Respiratory Infection Stated Complaint: coughing Time Seen by Provider: 06/20/24 19:30 Source: patient, RN notes reviewed and old records reviewed Mode of arrival: ambulatory Limitations: no limitations History of Present Illness HPI Narrative: 39-year-old female presents to the [facility] with coughing and fevers since , 2 days. Has tried cnhj-cji-lidzysi products Onset (ago): day(s) (2) Treatments prior to arrival: cold medicine Related Data Home Medications Medication Instructions Recorded Confirmed albuterol sulfate 90 mcg/actuation 2 puff inhalation PRN PRN 06/20/24 06/20/24 aerosol inhaler Shortness Of Breath Or Wheezing Allergies Allergy/AdvReac Type Severity Reaction Status Date / Time No Known Allergies Allergy Verified 06/20/24 19:19 Review of Systems Review of Systems: All systems reviewed & are unremarkable except as noted in HPI and below Constitutional: Constitutional: Reports as per HPI, Reports body ache(s) and Reports fever(s) Eyes: Eyes: Reports no additional eye complaints ENT: Reports system reviewed and no additional complaints, except as documented Cardiovascular: Cardiovascular: Reports no additional cardiovascular complaints, Denies chest pain and Denies dyspnea Respiratory: Respiratory: Reports as per HPI, Reports no additional respiratory complaints, Denies chest congestion, Reports cough and Denies dyspnea Gastrointestinal: Gastrointestinal: Reports no additional gastrointestinal complaints, Denies abdominal pain, Denies nausea and Denies vomiting Musculoskeletal: Musculoskeletal: Reports no additional musculoskeletal complaints Integumentary/Breasts: Skin/Breast: Reports system reviewed and no additional complaints, except as docu Neurologic: Reports system reviewed and no additional complaints, except as documented Psychiatric: Psychiatric: Reports no additional psychiatric complaints Allergic/Immunologic: Allergic/Immunologic: Reports no additional allergic/immunologic complaints [facility] Past Medical History Medical History Advanced maternal age (AMA) in Asthma Surgical History Surgical History History of section x3 History of cholecystectomy Family History Family History Mother Colon polyp Grandparent Diabetes mellitus Son Asthma Social History Social History (Reviewed 06/21/24 @ 08:01 by KARMA Sow Smoking status: Former smoker Second hand tobacco smoke exposure: No Smoking end date: 09/16/16 Alcohol intake: current Substance use: never Lack of Transportation: No Lack of Food: Never True Current Housing: I Have Housing Concerned About Future Housing: No Difficulty Paying Gas/Electric Bills: No Difficulty Paying for Meds: No Currently Unemployed: No Education: Associate Degree Difficulty w/ Childcare or Family Care: No Spiritual care concerns: No Comments At the time of my signature, I reviewed and agree with the nursing past medical, surgical, social, and family history. There is no relevant family history pertinent to the patient complaint. Exam Const: General: cooperative, healthy appearing, comfortable, no acute distress, well developed, alert and well nourished Nutritional Appearance: well nourished Orientation/consciousness: patient oriented x3 Limitations: no limitations HENMT: Head: normal to inspection Ears: hearing grossly normal bilaterally, external ears normal, TM's normal bilaterally, EAC's normal, mastoids normal and no periauricular adenopathy Face/Nose/Sinus: Normal external nose present, Normal nares present, Normal nasal mucous membranes and turbinates present, normal facial exam and face symmetric Face and sinus: normal facial exam and face sym
[2024-06-20 19:25] VITALS: BP 88/69; PULSE 114; RESP 18; TEMP 37.5; O2SAT 97
[2024-06-20 19:34] LABS: EDSTREPNEGPOS1 Negative (Negative)
[2024-06-20 19:36] VITALS: BP 106/64
[2024-06-20 19:40] LABS: EDCOVIDSCREEN Negative (Negative)
[2024-06-20 19:41] LABS: EDINFLUASCREEN Negative (Negative); EDINFLUBSCREEN Negative (Negative)
== END 2024-06-20 20:01 | disposition home or self-care (01) ==
PROVIDERS: Emergency Provider Nurse Practitioner; PCP Nurse Practitioner Family
DX: J06.9 Acute upper respiratory infection, unspecified (principal); J40 Bronchitis, not specified as acute or chronic; Z87.891 Personal history of nicotine dependence; Z20.822 Contact with and (suspected) exposure to COVID-19
CPT/HCPCS: 71046; 87081; 87426; 87804; 87880; 99213; G0463

== ENCOUNTER 2024-08-11 12:20 | Emergency (ER) | payer OTHER, SELFPAY ==
[2024-08-11 12:29] VITALS: BP 118/74; PULSE 107; RESP 19; TEMP 36.6; O2SAT 97
--- NOTE | 2024-08-11 12:29 | ED.URI ---
HPI - URI/Sore Throat General Chief Complaint: Upper Respiratory Infection Stated Complaint: COUGH S/P COVID Time Seen by Provider: 08/11/24 12:36 Source: patient, RN notes reviewed and old records reviewed Mode of arrival: ambulatory Limitations: no limitations History of Present Illness HPI Narrative: 39 year old female who presents to [facility] care with complaints of cough post COVID/ Influenza which she was diagnosed with on July 29 and was treated with Tamiflu and some cough medication and she had previously been diagnosed with bronchitis on the 20 of June. She reports that her doctor ordered her some Tessalon Perles for her cough which haven't really helped her cough. Patient reports that cough is nonproductive and getting worse, her body is sore from coughing so much, Patient reports that she has no acute dyspnea, no tachypnea noted, SAO2 97% on room air MD elicited complaint: cough Pertinent past history: other (recent COVID/ Flu B and Bronchitis.) Onset (ago): unknown (initially June then increased since 07/29/2024) Severity: moderate Able to tolerate fluids by mouth: Yes Treatments prior to arrival: other (used inhaler, cough medication, montelukast, tessalon Perles) Related Data Home Medications Medication Instructions Recorded Confirmed albuterol sulfate 90 mcg/actuation 2 puff inhalation PRN PRN 06/20/24 08/11/24 aerosol inhaler Shortness Of Breath Or Wheezing benzonatate 200 mg capsule 200 mg PO DIRECTED 08/11/24 08/11/24 hyuoqajkvlwrmsh-jwbwwgseqtswyxd-VV 10 ml PO DIRECTED 08/11/24 08/11/24 2 mg-30 mg-10 mg/5 mL oral syrup montelukast 10 mg tablet 10 mg PO DAILY 08/11/24 08/11/24 Allergies Allergy/AdvReac Type Severity Reaction Status Date / Time No Known Allergies Allergy Verified 06/20/24 19:19 Review of Systems Review of Systems: CONSTITUTIONAL: Reports malaise, chills, sweats, or fever. EYES: Denies visual changes, redness, or discharge. ENT: Reports rhinorrhea, congestion, no sinus pain, no otalgia and no sore throat. CARDIOVASCULAR: Denies chest pain, palpitations, or edema. RESPIRATORY: Reports dry frequent cough.? Denies dyspnea. GASTROINTESTINAL: Denies abdominal pain, nausea, vomiting, diarrhea SKIN: Denies rash or itching. MUSCULOSKELETAL: Reports generalized myalgia. NEUROLOGIC: Denies headache. All systems reviewed & are unremarkable except as noted in HPI and below PMFSH Past Medical History Medical History Advanced maternal age (AMA) in Asthma Surgical History Surgical History (Updated 08/13/24 @ 09:53 by Elisabet Wayne NP) History of section x3 History of cholecystectomy Tubal ligation status Family History Family History Mother Colon polyp Grandparent Diabetes mellitus Son Asthma Social History Social History Smoking status: Former smoker Second hand tobacco smoke exposure: No Smoking end date: 09/16/16 Alcohol intake: current Substance use: never Lack of Transportation: No Lack of Food: Never True Current Housing: I Have Housing Concerned About Future Housing: No Difficulty Paying Gas/Electric Bills: No Difficulty Paying for Meds: No Currently Unemployed: No Education: Associate Degree Difficulty w/ Childcare or Family Care: No Spiritual care concerns: No Comments At time of signature, agree with nursing past medical, surgical, social and family history. There is no relevant family history pertinent to the presenting complaint Exam Narrative: GENERAL: Well-appearing, well-nourished, and in no acute distress. HEAD: Normocephalic EYES: PERRLA, conjunctivae clear ENT: Nares clear, turbinates edematous and erythematous, clear discharge. Mucous membranes moist. TM pearly ferrari with dull light reflex bilaterally; no tragal tenderness. Oropharynx erythematous without lesions. Tonsils not enlarged and without exudate, no drooling, no hoarseness, no trismus, uvula midline.some post nasal drainage NECK: Supple. No lymphadenopathy CHEST: Clear to auscultation, breath sounds equal. No wheezing, rhonchi, rales, or stridor. No respiratory distress, speaks in full sentences.dry hacking cough SAO2 97% on room air HEART: Regular rate and rhythm. No murmur heard. SKIN: Warm, dry, no rash. NEURO: Alert and oriented x3. PSYCH: Normal mood and affect Course Course Emergency Course: Patient is aware of diagnosis, understands and agrees to treatment plan.? Anticipatory guidance given.? Patient agrees to follow-up as directed and is aware of reasons to seek care at the emergency department. Portions of this record may have been created with voice recognition software Level of Care: Express Care Visit Vital Signs Vital signs: Vital Signs Temperature 36.6 C 08/11/24 12:29 Pulse Rate 107 H 08/11/24 12:29 Respiratory Rate 19 08/11/24 12:29 Blood Pressure 118/74 08/11/24 12:29 Pulse Oximetry 97 08/11/24 12:29 Oxygen Delivery Room Air 08/11/24 12:29 Temperature 36.6 C 08/11/24 12:29 Pulse Rate 107 H 08/11/24 12:29 Respiratory Rate 19 08/11/24 12:29 Blood Pressure 118/74 08/11/24 12:29 Pulse Oximetry 97 08/11/24 12:29 Oxygen Delivery Room Air 08/11/24 12:35 Reviewed MDM - URI/Sore Throat MDM Narrative Medical decision making narrative: Differential diagnosis considered: Perez virus, strep pharyngitis, allergic rhinitis, upper respiratory tract infection, sinusitis, rhinosinusitis, nasopharyngitis. viral pharyngitis, otitis media, otitis externa, pneumonia, bronchitis, viral cough syndrome, viral syndrome, and influenza.? Exam findings show no acute concerns or changes; patient is non-toxic appearing and is in no distress.? Patient is appropriate for outpatient treatment and follow-up. Differential Diagnosis Differential diagnosis: Likely upper respiratory infection, sinusitis, viral infection and other (acute cough) Medical Records Attestation: I reviewed the patient's medical records. Lab Data Attestation: I reviewed the patient's lab results. Critical Care Time Critical Care Time Critical Care Time: No Discharge Plan Discharge Clinical Impression: Acute cough, Viral infection Patient Disposition: Home, Self-Care Condition: Stable Instructions: Antibiotic Form, Acute Cough (ED) Additional Instructions: Increase fluids especially juices and water Nmqm-bts-rfkicna cough and cold medicine of your choice for your symptoms Prescription cough medicine as directed--caution drowsiness and no driving or alcohol Cough tablets as directed for cough--do not bite, chew or suck on--swallow whole Continue your inhaler/nebulizer as directed Steroids as directed--take with food heat to the face 20-30 minutes 4-6 times a day for pain Salt water gargles, throat lozenges or throat sprays as desired continue your Flonase and Zyrtec daily If your symptoms persist, change or worsen significantly before you can contact your personal physician then please, without delay, go to the emergency department for further evaluation. Follow-up with PCP in 7-10 days or sooner if needed Prescriptions: New albuterol sulfate 90 mcg/actuation HFA aerosol inhaler 2 puff inhalation QID PRN (Reason: shortness of breath or wheezing) Qty: 6.7 0RF Rx Instructions: as needed prednisone 20 mg tablet 20 mg PO BID Qty: 10 0RF Rx Instructions: take with food codeine-guaifenesin 10-100 mg/5 mL liquid 5 ml PO Q4-6H Qty: 120 0RF No Action albuterol sulfate 90 mcg/actuation HFA aerosol inhaler 2 puff INHALATION PRN PRN (Reason: Shortness Of Breath Or Wheezing) benzonatate 200 mg capsule 200 mg PO DIRECTED montelukast 10 mg tablet 10 mg PO DAILY fgvxfvqhmockrqt-cuyotvnjp-EH 2-30-10 mg/5 mL syrup 10 ml PO DIRECTED Follow-up/Referrals: Jani,Mehnaz Pierre MD [Primary Care Provider] - Time of Disposition: 12:58 Quality [place] Coma Scale Eyes: Open Verbal: Oriented and Alert Motor: Follows Commands [place] Coma Total Score: 15
== END 2024-08-11 13:01 | disposition home or self-care (01) ==
PROVIDERS: Emergency Provider Registered Nurse; PCP Student in an Organized Health Care Education/Training Program
DX: R05.1 Acute cough (principal); B34.9 Viral infection, unspecified; J45.909 Unspecified asthma, uncomplicated; Z87.891 Personal history of nicotine dependence; Z86.16 Personal history of COVID-19
CPT/HCPCS: 99213; G0463

== ENCOUNTER 2024-11-15 12:56 | Emergency (ER) | payer OTHER, SELFPAY ==
[2024-11-15 13:00] VITALS: BP 115/68; PULSE 100; RESP 16; TEMP 36.7; O2SAT 99
[2024-11-15 13:37] LABS: Basophils Percent Auto 0.2 % (0.2-1.2); Eosinophils Absolute Auto 0.5 K/mm3 (0-0.3); Eosinophils Percent Auto 4.8 % (0-4.4); Hematocrit 40.9 % (37.0-47.0); Hemoglobin 13.3 g/dL (12.0-15.0); Immature Granulocyte Absolute 0.03 K/mm3 (0.00-0.031); Immature Granulocyte Percent A 0.3 % (0-0.5); Lymphocytes Absolute Auto 3.48 K/mm3 (0.9-3.2); Lymphocytes Percent Auto 32.5 % (18.3-44.2); Mean Corpuscular HGB Conc 32.5 g/dl (32-36); Mean Corpuscular Hemoglobin 27.7 pg (26-34); Mean Platelet Volume 10.4 fl (7.4-10.4); Monocytes Absolute Auto 0.7 K/mm3 (0.1-0.6); Monocytes Percent Auto 6.4 % (2.6-8.5); Neutrophils Percent Auto 55.8 % (45.5-73.1); Platelet Count Result 282 k/mm3 (150-375); Red Blood Count 4.81 M/mm3 (4.2-5.4); Red Cell Distribution Width 13.8 % (11.5-14.5); White Blood Count 10.7 K/mm3 (4.5-10.0)
[2024-11-15 13:44] LABS: Add Urine Microscopic? YES; Appearance Urine Cloudy (Clear); Bacteria Urine 1+ /hpf; Bilirubin Urine Negative (Negative); Blood Urine Negative (Negative); Color Urine Yellow (Yellow); Glucose Urine UA Negative (Negative); Ketones Urine Negative (Negative); Leukocyte Esterase Ur Trace LEU/UL (Negative); Nitrate Urine Negative (Negative); Non Pathogenic Casts 0-2; Protein Urine Negative (Negative); Squamous Epithelial Cell Urine Moderate /hpf (Few); Urobilinogen Urine 0.2 mg/dL (<2.0); WBC Urine 0-5 /hpf (0-3)
[2024-11-15 13:48] LABS: Alanine Aminotransferase 25 U/L (6-35); Albumin Level 4.6 g/dL (3.5-5.1); Alkaline Phosphatase 90 U/L (38-126); Anion Gap 12 mmol/L (4-12); Aspartate Amino Transferase 20 U/L (14-36); Bilirubin,Total 0.2 mg/dL (0.2-1.3); Blood Urea Nitrogen 8 mg/dL (7-17); Calcium 9.9 mg/dL (8.4-10.2); Carbon Dioxide 21 mmol/L (22-30); Chloride 105 mmol/L (98-107); Estimated CRCL calculation 107 ml/min; Estimated Glomerular Filt Rate > 60; Glucose 99 mg/dL (65-110); Potassium 4.2 mmol/L (3.4-5.0); Sodium 138 mmol/L (137-145)
[2024-11-15 13:54] LABS: INR 0.9; Prothrombin Time 12.7 Seconds (11.1-14.7)
[2024-11-15 13:55] LABS: Partial Thromboplastin Time 29.8 Seconds (22.3-36.8)
[2024-11-15 13:59] LABS: Troponin I < 0.012 ng/mL (0.000-0.034)
--- NOTE | 2024-11-15 14:55 | ED.GENADULT ---
HPI - General Adult General Chief complaint: Unspecified Stated complaint: tingling Time Seen by Provider: 11/15/24 13:07 History of Present Illness HPI narrative: Patient is a 39-year-old female who presents ER with numbness and tingling. Began yesterday in the right lower extremity around the vizcarra and foot. Since then she has developed tingling to the entirety of the right leg, the right arm, in the right face. No anesthesia other than over the right vizcarra. Denies trauma. No focal weakness. No slurred speech or expressive aphasia. No history of CVA or MS. No chest pain or chest pressure. No aggravating or alleviating factors. Related Data Home Medications ?Medication ?Instructions ?Recorded ?Confirmed ?Last Taken ?Type albuterol sulfate 90 mcg/actuation 2 puff inhalation PRN PRN 06/20/24 08/11/24 Unknown History aerosol inhaler Shortness Of Breath Or Wheezing benzonatate 200 mg capsule 200 mg PO DIRECTED 08/11/24 08/11/24 Unknown History eoohaavcupjdfvv-mriwfglddevdclv-AR 10 ml PO DIRECTED 08/11/24 08/11/24 Unknown History 2 mg-30 mg-10 mg/5 mL oral syrup montelukast 10 mg tablet 10 mg PO DAILY 08/11/24 08/11/24 Unknown History Allergies Allergy/AdvReac Type Severity Reaction Status Date / Time No Known Allergies Allergy Verified 11/15/24 13:01 Review of Systems Review of Systems: All systems reviewed & are unremarkable except as noted in HPI and below Constitutional: Constitutional: Reports no additional constitutional complaints ENT: Reports system reviewed and no additional complaints, except as documented Cardiovascular: Cardiovascular: Reports no additional cardiovascular complaints Respiratory: Respiratory: Reports no additional respiratory complaints Musculoskeletal: Musculoskeletal: Reports no additional musculoskeletal complaints Neurologic: Reports system reviewed and no additional complaints, except as documented [facility] Past Medical History Medical History (Updated 11/15/24 @ 16:12 by Grayson Hernandez MD) Asthma Advanced maternal age (AMA) in Surgical History Surgical History (Updated 08/13/24 @ 09:53 by Elisabet Wayne NP) Tubal ligation status History of section x3 History of cholecystectomy Family History Family History Mother Colon polyp Grandparent Diabetes mellitus Son Asthma Social History Social History Smoking status: Former smoker Second hand tobacco smoke exposure: No Smoking end date: 09/16/16 Alcohol intake: current Substance use: never Lack of Transportation: No Lack of Food: Never True Current Housing: I Have Housing Concerned About Future Housing: No Difficulty Paying Gas/Electric Bills: No Difficulty Paying for Meds: No Currently Unemployed: No Education: Associate Degree Difficulty w/ Childcare or Family Care: No Spiritual care concerns: No Exam Narrative: GENERAL: Well-appearing, well-nourished, and in no acute distress. HEAD: Normocephalic, atraumatic. EYES: PERRL and EOMI. ENT: Mucous membranes moist. CHEST: Clear to auscultation. No respiratory distress. HEART: Regular rate and rhythm. Normal peripheral pulses. ABDOMEN: Soft, nontender, nondistended. EXTREMITIES: Normal range of motion. No edema. SKIN: Warm, dry, no rash. NEURO: Sharp touch deficit right lower extremity over the vizcarra but not the medial or lateral portions of the extremity. Otherwise sensation intact throughout across the body. No upper lower extremity drift. No normal mcti-vf-uwep testing. Normal finger-nose testing. See NIH stroke scale. Alert and oriented x3. PSYCH: Normal mood and affect. Course Course Emergency Course: Patient informed of results. Discussed with Dr. Arndt with Neurology. Appropriate for outpatient follow-up for MRI. Patient in agreement with treatment plan. She will contact her PCP. Discharge home.. Vital Signs Vital signs: Vital Signs Temperature 98.0 F 11/15/24 13:00 Pulse Rate 100 11/15/24 13:00 Respiratory Rate 16 11/15/24 13:00 Blood Pressure 115/68 11/15/24 13:00 Pulse Oximetry 99 11/15/24 13:00 Oxygen Delivery Room Air 11/15/24 13:00 Temperature 98.0 F 11/15/24 13:00 Pulse Rate 100 11/15/24 13:00 Respiratory Rate 16 11/15/24 13:00 Blood Pressure 115/68 11/15/24 13:00 Pulse Oximetry 99 11/15/24 13:00 Oxygen Delivery Room Air 11/15/24 13:00 Medical Decision Making Vital Signs Vital Signs: Vital Signs Temperature 98.0 F 11/15/24 13:00 Pulse Rate 100 11/15/24 13:00 Respiratory Rate 16 11/15/24 13:00 Blood Pressure 115/68 11/15/24 13:00 Pulse Oximetry 99 11/15/24 13:00 Oxygen Delivery Room Air 11/15/24 13:00 Temperature 98.0 F 11/15/24 13:00 Pulse Rate 100 11/15/24 13:00 Respiratory Rate 16 11/15/24 13:00 Blood Pressure 115/68 11/15/24 13:00 Pulse Oximetry 99 11/15/24 13:00 Oxygen Delivery Room Air 11/15/24 13:00 Lab Data 11/15/24 13:28 11/15/24 13:28 Labs: Lab Results 11/15/24 Range/Units 13:28 WBC 10.7 H (4.5-10.0) K/mm3 RBC 4.81 (4.2-5.4) M/mm3 Hgb 13.3 (12.0-15.0) g/dL Hct 40.9 (37.0-47.0) % MCV 85.0 (80-100) fl MCH 27.7 (26-34) pg MCHC 32.5 (32-36) g/dl RDW 13.8 (11.5-14.5) % Plt Count 282 D (150-375) k/mm3 MPV 10.4 (7.4-10.4) fl Immature Gran % (Auto) 0.3 (0-0.5) % Neut % (Auto) 55.8 (45.5-73.1) % Lymph % (Auto) 32.5 (18.3-44.2) % [place] % (Auto) 6.4 (2.6-8.5) % Eos % (Auto) 4.8 H (0-4.4) % Baso % (Auto) 0.2 (0.2-1.2) % Lymph # (Auto) 3.48 H (0.9-3.2) K/mm3 [place] # (Auto) 0.7 H (0.1-0.6) K/mm3 Eos # (Auto) 0.5 H (0-0.3) K/mm3 Baso # (Auto) 0.0 (0.0-0.1) K/mm3 Abs Immat Gran (auto) 0.03 (0.00-0.031) K/mm3 Absolute Neuts (auto) 6.0 (1.3-6.7) K/mm3 Absolute Nucleated RBC 0.000 (0.0-0.012) K/mm3 Nucleated RBC % 0.0 (0.0-0.2) % PT 12.7 (11.1-14.7) Seconds INR 0.9 APTT 29.8 (22.3-36.8) Seconds Sodium 138 (137-145) mmol/L Potassium 4.2 (3.4-5.0) mmol/L Chloride 105 (98-107) mmol/L Carbon Dioxide 21 L (22-30) mmol/L Anion Gap 12 (4-12) mmol/L BUN 8 (7-17) mg/dL Creatinine 0.65 L (0.7-1.0) mg/dL Estim Creat Clear Calc 107 ml/min Estimated GFR > 60 (59 - ) Glucose 99 (65-110) mg/dL Calcium 9.9 (8.4-10.2) mg/dL Total Bilirubin 0.2 (0.2-1.3) mg/dL AST 20 (14-36) U/L ALT 25 (6-35) U/L Alkaline Phosphatase 90 (38-126) U/L Troponin I < 0.012 (0.000-0.034) ng/mL Total Protein 8.0 (6.3-8.2) g/dL Albumin 4.6 (3.5-5.1) g/dL Urine Color Yellow (Yellow) Urine Appearance Cloudy H (Clear) Urine pH 7.0 (5.0-9.0) Ur Specific [place] 1.020 (1.001-1.035) Urine Protein Negative (Negative) mg/dL Urine Glucose (UA) Negative (Negative) mg/dL Urine Ketones Negative (Negative) mg/dL Ur Blood (Man) Negative (Negative) Urine Nitrate Negative (Negative) Urine Bilirubin Negative (Negative) Urine Urobilinogen 0.2 (<2.0) mg/dL Leukocyte Esterase Rfl Trace H (Negative) KIKO/UL Urine RBC 3-5 H (0-2) /hpf Urine WBC 0-5 (0-3) /hpf Ur Squamous Epith Cells Moderate (Few) /hpf Urine Bacteria 1+ H /hpf Urine Casts 0-2 Imaging Data Radiologist's impression: ITS Impressions Chest X-Ray 11/15/24 14:38 IMPRESSION: No acute cardiopulmonary pathology. Head/Neck CTA 11/15/24 14:52 IMPRESSION: 1. Normal CTA neck. Percent stenosis per NASCET criteria is 0%. 2. No evidence of occlusion or significant stenosis seen in the intracranial vessels. Discharge Plan Discharge Clinical Impression: Paresthesias Patient Disposition: Home, Self-Care Condition: Stable Instructions: Antibiotic Form, Paresthesia (ED) Additional Instructions: Follow-up with your primary care doctor. You need an outpatient MRI for further evaluation of her symptoms. Return the ER if you develop focal weakness in an arm or leg, you have slurred speech, or you have additional concerns. Patient Language: Slovenian Prescriptions: No Action albuterol sulfate 90 mcg/actuation HFA aerosol inhaler 2 puff INHALATION PRN PRN (Reason: Shortness Of Breath Or Wheezing) benzonatate 200 mg capsule 200 mg PO DIRECTED montelukast 10 mg tablet 10 mg PO DAILY lukrvsmevzfglnx-ejfedqogn-BM 2-30-10 mg/5 mL syrup 10 ml PO DIRECTED albuterol sulfate 90 mcg/actuation HFA aerosol inhaler 2 puff inhalation QID PRN (Reason: shortness of breath or wheezing) Qty: 6.7 0RF Rx Instructions: as needed prednisone 20 mg tablet 20 mg PO BID Qty: 10 0RF Rx Instructions: take with food codeine-guaifenesin 10-100 mg/5 mL liquid 5 ml PO Q4-6H Qty: 120 0RF Follow-up/Referrals: Jani,Mehnaz Pierre MD [Primary Care Provider] - 1 Week Quality Stroke Scale Stroke Scale 1: Stroke scale date:: 11/15/24 Stroke scale time:: 14:57 1a Level of consciousness: alert-0 1b Level of consciousness questions: answers both correctly-0 1c Level of consciousness commands: obeys both correctly-0 2 Best gaze: normal-0 3 Visual: no visual loss-0 4 Facial palsy: normal-0 5a Motor: left arm: no drift-0 5b Motor: right arm: no drift-0 6a Motor: left leg: no drift-0 6b Motor: right leg: no drift-0 7 Limb ataxia: absent-0 8 Sensory: pinprick less sharp-1 9 Best language: no aphasia-0 10 Dysarthria: normal-0 11 Extinction and inattention: no abnormality-0 Level:: 1
[2024-11-15 16:28] VITALS: BP 117/83; PULSE 100; RESP 18; TEMP 37.1; O2SAT 98
== END 2024-11-15 16:31 | disposition home or self-care (01) ==
PROVIDERS: Emergency Provider Emergency Medicine; PCP Student in an Organized Health Care Education/Training Program
DX: R20.2 Paresthesia of skin (principal); J45.909 Unspecified asthma, uncomplicated; Z90.49 Acquired absence of other specified parts of digestive tract; Z87.891 Personal history of nicotine dependence
CPT/HCPCS: 36415; 70496; 70498; 71046; 80053; 81001; 84484; 85025; 85610; 85730; 93005; 99284; Q9967

== ENCOUNTER 2025-04-27 13:34 | Emergency (ER) | payer OTHER, SELFPAY ==
--- NOTE | ~2025-04-27 | CT_ITS ---
CLINICAL INDICATION: Flank pain COMPARISON: None. TECHNIQUE: Multiple contiguous axial images of the abdomen and pelvis were performed without the admi nistration of intravenous contrast The dose-length product (DLP) was 1173.86 mGy-cm. Automated exposure control and iterative reconstruction technique were employed. FINDINGS/OBSERVATIONS: Visualized lower thorax: The bilateral lung bases are clear. The heart is of normal size, without pericardial effusion. Liver: The liver demonstrates homogeneous attenuation and is not enlarged. Gallbladder and biliary system: The gallbladder is surgically absent. Pancreas: Limited evaluation of the pancreas secondary to the lack of intravenous contrast. Spleen: The spleen demonstrates homogeneous attenuation and is not enlarged. Kidneys: 3 mm nonobstructing calculus within the lower pole of the right kidney. The remainder of the bilateral kidneys are otherwise unremarkable, without hydronephrosis or addition al renal calculi. Adrenal glands: Unremarkable. Gastrointestinal tract: Colonic diverticulosis without surrounding inflammatory change. Fecal stasis within the colon. Appendix: The air-filled appendix is of normal caliber (axial series, images 121 through 128) Vasculature: Unremarkable. Lymph nodes: Limited evaluation without intravenous contrast. Pelvic structures: The bladder is only minimally distended, and otherwise unremarkable. The uterus is anteverted and anteflexed, and nodular in contour. Multiple calcifications are detected suggesting fibroid disease.. Body wall and musculoskeletal: No significant degenerative disease within the lower thoracic or lumbosacral spine. IMPRESSION: 3 mm nonobstructing calculus within the lower pole of the right kidney. No additional findings within the lower chest, abdomen or pelvis to account for patient's symptoms. Reviewed, dictated and finalized at location A.
[2025-04-27 13:42] VITALS: BP 130/84; PULSE 98; RESP 16; TEMP 36.8; O2SAT 99
--- OUTSIDE RECORDS SUMMARY | 2025-04-27 13:55 | XMS_ITS | Encounter Summary ---
Author Organization [facility] Address [facility] [place] [address] Care Team Providers Care Backer Up Name Role Phone Sahra Franco MD Primary Care Provider Unavail She Joyner Primary Care Provider [phone] Yoon Polk PA-C Primary Care Provider [phone] Mehnaz Gunter MD Primary Care Provider + Encounter Details Date Type Department Care Team (Late st Contact Info) Description 09/30/2019 MyChart Message Enc [facility] Family & Internal Medicine [facility] [address] [place] [address] She Aceves APNP [phone] [phone] RE: RE: Medication Questions Social History Tobacco Use Types Packs/Day Years Used Date Smoking Tobacco: Former Cigarettes Q uit: 2017 Smokeless Tobacco: Never Alcohol Use Standard Drinks/Week Comments Yes 0 (1 standard drink = 0.6 oz pur e alcohol) 1/month AUDIT-C Answer Date Recorded Frequency of Alcohol Consumption Monthly or less 08/04/2018 Average Number of Drinks 1 or 2 018 Frequency of Binge Drinking Never 07/17 Education Answer Date Recorded What is the highest level of school you have completed or the highest degree you have received? 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 Notify her that I typically do 1 albuterol inhaler with one refill for the year. If she is using more than that in a year time it is an indication she is using it more than recommended. Thank you. STRY ADVISER documented in this encounter Plan of Treatment Upcoming Encounters Date Type Department Care Team (Late st Contact Info) Description 04/29/2025 12:20 PM CDT Office Visit [address] [address] Mehnaz Gunter MD [address] [address] 07/22/2025 8:30 AM FORESTRY ADVISER Office Visit [address] [address] Mehnaz Gunter MD [address] [address] 09/07/2025 8:00 AM FORESTRY ADVISER [facility]ointment [facility] [address] [facility] [place], [place] [phone] Ab Mcnamara MD [address] [facility] [address] [place] [phone] 09/07/2025 8:30 AM FORESTRY ADVISER Appointment [facility] [place], [place] [address] Ab Mcnamara MD [address] [facility] [address] [place], [place] [address] documented as of this encounter Visit Diagnoses Not on filedocumented in this encounter Care Teams Backer Up Relationship Specialty Start Date End Date Sahra Franco MD PCP - General INTERNAL MEDICINE 06/28/19 05/18/20 She Aceves APNP [phone] [address] PCP - General Nurse Practitioner Family 05/19/2004/17 Yoon Polk PA-C [address] [address] PCP - General PHYSICIAN PSYCHIATRIC CLINICIAN 05/06/23 07/12/24 Mehnaz Gunter MD [address] [place] [address] PCP - General FAMILY PRACTICE 07/13/24 documented as of this encounter
--- OUTSIDE RECORDS SUMMARY | 2025-04-27 13:55 | XMS_ITS | Clinical Summary ---
Author Organization [facility] Address [address] [place] [phone] Phone Care Team Providers Care Printed Circuit Board Panels Plater Name Role Phone Unavailable Primary Care Provider Unavailabl e Social History Tobacco Use Types Packs/Day Years Used Date Smoking Tobacco: Never Assessed Comments Unknown Sex and Gender Information Value Date Recorded Sex Assigned at Not on file Legal Sex Female 11:37 AM CDT Gender Identity Not on file Sexual Orientation Not on file Plan of Treatment Health Maintenance Due Date Last Done Comments HPV VACCINES (1 - 3-dose series) 02/12/2000 HEPATITIS B VACCINES (1 of 3 - 19+ 3-dose series) 02/12/2004 HPV/Cotest (21-29) 2006 CERVICAL CANCER SCREENING 2015 HPV/Cotest (30-65) 2015 PAP SMEAR 2015 BREAST CANCER SCREENING 2025 INFLUENZA VACCINE (#1) 2025 08/21/2019 DTAP/TDAP/TD VACCINES (3 - Td or Tdap) 12/14/2027, 12/03/2017 Insurance [facility] [place] [address] [email or web address] Member Subscriber Plan / Payer (Ef fective 2022-Present) Name:Hedy Luna Relation to Subscriber:Spouse Name:MARTIN LUNA Date of :1988 (Home) Address: [facility] [place] [address] Payer ID:[id number] (NAIC) Type:[employer] Address: [facility] [id number] [place] [id number]
--- OUTSIDE RECORDS SUMMARY | 2025-04-27 13:55 | XMS_ITS | Encounter Summary ---
Author Organization [facility] Address [facility] [place] [address] Care Team Providers Care Clinical Psychologist Private Practice Name Role Phone Sahra Franco MD Primary Care Provider UnavailSahra Cohn MD Primary Care Provider Unavailab She JoynerNP Primary Care Provider [phone] Yoon Polk-C Primary Care Provider [phone] Mehnaz Gunter MD Primary Care Provider + Encounter Details Date Type Department Care Team (Late st Contact Info) Description 12/18/2018 MyCSamEnricot Message [facility] Family [facility] Medicine [address] [address] Sabrina Phan NP Referral Request Social History Tobacco Use Types Packs/Day Years Used Date Smoking Tobacco: Former Cigarettes Q uit: 2017 Smokeless Tobacco: Never Comments:3-6 cigs per day Alcohol Use Standard Drinks/Week Comments Yes 0 [...] received? 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 I placed order for ENT. She is not having anxiety every day, only situational like in traffic or climbing steps to roller coaster. Recommend she call office if chest pain and/or anxiety worsen. yenny documented in this encounter Plan of Treatment Upcoming Encounters Date Type Department Care Team (Late st Contact Info) Description 04/29/2025 12:20 PM CDT Office Visit [facility] Family Medicine [address] [address] Mehnaz Gunter MD [address] [address] 07/22/2025 8:30 AM FAMILY INTERVENTION SPECIALIST Office Visit [facility] Family [address] [address] Mehnaz Gunter MD 7342 [facility] [address] [place] [address] 09/07/2025 8:00 AM FAMILY INTERVENTION SPECIALIST Appointment [facility] M[facility]ography [address] [place], [place] [address] Ab Mcnamara MD [facility] [address] [place] [phone] 09/07/2025 8:30 AM FAMILY INTERVENTION SPECIALIST Appointment [facility] [place] [address] Ab Mcnamara MD 1414 [facility] [address] [place], [place] [address] documented as of this encounter Visit Diagnoses Not on filedocumented in this encounter Care Teams Clinical Psychologist Private Practice Relationship Specialty Start Date End Date Sahra Franco MD PCP - General INTERNAL MEDICINE 08/04/18 06/27/19 Sahra Franco MD PCP - General INTERNAL MEDICINE 06/28/19 05/18/20 She Aceves APNP [address] [address] PCP - General Nurse Practitioner Family 05/19/2004/17 Yoon Polk, PAArelyC [address] [phone] PCP - General PHYSICIAN TRAVEL SALES CONSULTANT 05/06/23 07/12/24 Mehnaz Gunter MD [address] [place] [address] PCP - General FAMILY PRACTICE 07/13/24 documented as of this encounter
--- OUTSIDE RECORDS SUMMARY | 2025-04-27 13:55 | XMS_ITS | Encounter Summary ---
Author Organization [facility] Address [facility] [place] [address] Care Team Providers Care Career Coordinator Name Role Phone Sahra Franco MD Primary Care Provider UnavailSahra Cohn MD Primary Care Provider Unavailab She JoynerNP Primary Care Provider [phone] Yoon Polk-C Primary Care Provider [phone] Mehnaz Gunter MD Primary Care Provider + Encounter Details Date Type Department Care Team (Late st Contact Info) Description 12/11/2018 MyCXeebelt Message Enc [facility] Family & Internal Medicine [address] [address] Sabrina Phan NP RE: Question Social History Tobacco Use Types Packs/Day Years [...] Sex Assigned at Female 10/23/2018 12:24 PM FULFILLMENT SPECIALIST Legal Sex Female 8:10 PM CDT Gender Identity Female 10/23/2018 12:24 PM FULFILLMENT SPECIALIST Sexual Orientation Straight 08/04/2018 3: 02 PM FULFILLMENT SPECIALIST Occupation 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 Not on file Not on file Not on file documented as of this encounter Plan of Treatment Upcoming Encounters Date Type Department Care Team (Late st Contact Info) Description 04/29/2025 12:20 PM CDT Office Visit [facility] [address] [address] Mehnaz Gunter MD [address] [place] [phone] 07/22/2025 8:30 AM FULFILLMENT SPECIALIST Office Visit [address] [address] Mehnaz Gunter MD [address] [phone] 09/07/2025 8:00 AM FULFILLMENT SPECIALIST Appointment [facility] [place], [place] [address] Ab Mcnamara MD [address] [place] [phone] 09/07/2025 8:30 AM FULFILLMENT SPECIALIST Appointment [facility] [place], [place] [address] Ab Mcnamara MD [address] [place] [address] [phone] documented as of this encounter Visit Diagnoses Not on filedocumented in this encounter Care Teams Career Coordinator Relationship Specialty Start Date End Date Sahra Franco MD PCP - General INTERNAL MEDICINE 08/04/18 06/27/19 Sahra Franco MD PCP - General INTERNAL MEDICINE 06/28/19 05/18/20 She Aceves APNP [address] [address] PCP - General Nurse Practitioner Family 05/19/2004/17 Yoon Polk, GUSTAVO [address] [address] PCP - General PHYSICIAN MOLDING MACHINE TENDER 05/06/23 07/12/24 Mehnaz Gunter MD [address] [place] [address] PCP - General FAMILY PRACTICE 07/13/24 documented as of this encounter
--- OUTSIDE RECORDS SUMMARY | 2025-04-27 13:55 | XMS_ITS | Clinical Summary ---
Author Organization [facility] Address [facility] [place] [address] Care Team Providers Care Regional Business Manager Name Role Phone Mehnaz Kramer MD Primary Care Provider + Allergies No known active allergies Medications montelukast (SINGULAIR) 10 MG tabletIndication s:Seasonal allergic rhinitis due to pollen Take 1 tablet (10 mg total) by mouth nightly at bedtime. 90 tablet 3 4 07/21/20 25 Active albuterol sulfate HFA 108 (90 Base) MCG/ACT inhaler every 4 (four) hours as needed. 4 Active azithromycin (ZITHROMAX Z-NIKA) 250 MG tabletIndication s:Mild persistent asthma with acute exacerbation (HHS/HCC) Take 2 tablets by mouth on day one then 1 daily for four days. 6 tablet 4 Active Additional Information Patient not taking.Reported on 11/17/2024 fluticasone-salm eterol (WIXELA INHUB) 250-50 MCG/ACT inhalerIndicatio ns:Mild persistent asthma with acute exacerbation (HHS/HCC) Inhale 1 puff into the lungs 2 (two) times daily. 60 each 4 Active Active Problems Problem Noted Date Diagnosed Date Allergic rhinitis 07/21/2024 Overview (07/21/2024): Takes flonase. Symptoms typically worsen seasonally. Assessment & Plan (07/21/2024 12:15 PM CASING SPLITTER): Not controlled. Trial Singulair. Insomnia 07/21/2024 Overview (07/21/2024): She has tried melatonin without improvement. She is currently managing using Tylenol PM regularly. Assessment & Plan (07/21/2024 12:14 PM CASING SPLITTER): Discussed option of trazodone. For now she will continue with the Benadryl. High risk for colon cancer 01/24/2018 Overview (07/21/2024): Mother has precancerous polyps. Sees Dr. Shanks. Had a colonoscopy in the past and needs one every 5 years. 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 Encounters Date Type Department Care Team Description 03/10/2025 9:39 AM CDT - 03/10/2025 11:59 PM CDT Hospital Encounter [facility] [address] [facility] [place] [address] Tucker Mcnamara MD Discharge Disposition: Home or Self Care (Routine Discharge) 03/10/2025 Travel 02/25/2025 Scan [facility] INFO SRVCS Scanned, Doc Med Group 02/16/2025 Yagomartt Message [facility] Family Medicine [facility] [address] [facility] [address] [place] [address] Mehnaz Kramer MD Sinus Infection from Last 3 Months Immunizations Immunization Administration Dates Next Due Dtap 12/13/2017 Fluzone (IIV3, Trivalent, 0. 5 ML Prefilled Syringe) 07/21/2024 Fluzone 6 Months+ Quad (0.5 mL Prefilled Syringe) 08/21/2019 Influenza Adult (Generic) 08/07/2022,,07/17/2017,2016 Tdap (Generic) 12/03/2017 Family History Medical History Relation Comments Colon polyps Brother Cancer Daughter 1 No Known Problems Daughter 2 None Father Diabetes Maternal Aunt Heart Disease Maternal Grandfather Diabetes Maternal Grandmother Miscarriages / Stillbirths Mother None Mother colon polps Mother pre cancer Asthma Son 1 No Known Problems Son 2 Relation Status Comments Brother Alive Daughter 1 Daughter 2 Alive Father Alive Maternal Aunt Maternal Grandfather Maternal Grandmother Mother Alive Sister Alive Son 1 Son 2 Alive Social History Tobacco Use Types Packs/Day Years Used Date Smoking Tobacco: Former Cigarettes Q uit: 2017 Passive Smoke Exposure: Never Smokeless Tobacco: Never Tobacco Cessation:Counseling Given: No Alcohol Use Standard Drinks/Week Comments Yes 1 (1 standard drink = 0.6 oz pur e alcohol) 1/month AUDIT-C Answer Date Recorded Frequency of Alcohol Consumption Monthly or less 08/04/2018 Average Number of Drinks 1 or 2 018 Frequency of Binge Drinking Never 07/17 PHQ-2 Answer Date Recorded Patient Health Questionnaire-2 Score 0 12/21/2024 Education Answer Date Recorded What is the highest level of school you have completed or the highest degree you have received? 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 Not on file Not on file Not on file Last Filed Vital Signs Vital Sign Reading Time Taken Comments Blood Pressure 105/67 12/21/2024 11:19 AM CDT Pulse 88 12/21/2024 11:19 AM CDT Temperature 36.9 C (98.5 F) 12/21/2024 11:19 AM CDT Respiratory Rate 20 11/17/2024 9:46 AM CASING SPLITTER Oxygen Saturation 97% 12/21/2024 11:19 AM CDT Inhaled Oxygen Concentration - - Weight 98.9 kg (218 lb) 12/21/2024 11:19 AM CDT Height 160 cm (5' 3) 12/21/2024 11:19 AM CDT Body Mass Index 38.62 12/21/2024 11:19 AM CDT Plan of Treatment Upcoming Encounters Date Type Department Care Team (Late st Contact Info) Description 04/29/2025 12:20 PM CDT Office Visit [facility] Family Medicine - [address] [place] [address] Mehnaz Kramer MD [address] [place] [address] 07/22/2025 8:30 AM CASING SPLITTER Office Visit [facility] [place] [address] [facility] R[address] [facility] [place] [address] Mehnaz Kramer MD [address] [facility] [address] [place] [phone] 09/07/2025 8:00 AM CASING SPLITTER Appointment [facility] [place], [place] [phone] Tucker Mcnamara MD [address] [place] [phone] 09/07/2025 8:30 AM CASING SPLITTER Appointment [facility] [place], [place] [address] Tucker Mcnamara MD [address] [place] [address] [phone] Health Maintenance Due Date Last Done Comments Cervical Cancer Screening Pa p Smear (Age 30 to 64) Every 3 Years 1985 Hepatitis C 2003 Hepatitis B Vaccines (1 of 3 - 19+ 3-dose series) 02/12/2004 Pneumococcal Vaccine: Pediatrics (0 to 5 Years) and At-Risk Patients (6 to 49 Years) (1 of 2 - PCV) 02/12/2004 HPV Vaccines (1 - 3-dose SCD M series) 02/12/2012 Cervical Cancer Screening Pa p with HPV Testing (Age 30 to 64) Every 5 Years 07/22/2022 07/22/2017 Cervical Cancer Screening [facility] HPV 07/22/2022 COVID-19 Vaccine (4 - 2023-2 5 season) 2024 03/01/2022, 05/09/2021, 04/18/2021 Annual Physical 07/21/2025 07/21/2024 Mammogram Screening 01/05/2027 01/05/2025 DTaP, Tdap and Td Vaccines ( 3 - Td or Tdap) 12/14/2027 12/13/2017, 12/03/2017 PHQ-2 (Physician [place]) Completed 12/21/2024 Meningococcal B Vaccine Aged Out No l onger eligible based on patient's age to complete this topic Meningococcal Vaccine Aged Out No davis reina eligible based on patient's age to complete this topic RSV Immunizations Under 20 Months Aged Out No longer eligible b ased on patient's age to complete this topic Procedures Procedure Name Priority Date/Time Associated Diagnosis Comments US BREAST LT Tapru Routine 03/10/2025 11:22 AM CDT Abnormal mammogram MG DIAG W NELIA BILAT DIGI Routine 01/05/2025 1:33 PM CDT Subareolar mass of left breast HPV MRNA E6/E7 Routine 07/22/2017 5:51 PM CASING SPLITTER from Last 3 Months or Most Recently Relevant to Health Maintenance Results * ZANK.mobi BREAST LT Tapru (03/10/2025 11:22 AM CDT) Anatomical Region Laterality Modality Breast Left Ultrasound 03/10/2025 4:07 PM CDT Impressions 03/10/2025 4:09 PM CDT =====IMPRESSION:===== Biopsy canceled due to lack of sufficient target. 6 month follow-up diagnostic mammogram and ultrasound recommended. ASSESSMENT: ACR BI-RADS 3 - PROBABLY BENIGN FINDING(S) - SHORT INTERVAL FOLLOW- UP SUGGESTED RECOMMENDATION: 1: Short interval follow-up in 6 months.Left COMMENTS: Ordered By: TUCKER MCNAAMRA Interpreted By: Erick Morales, 03/10/2025 4:07 PM Narrative 03/10/2025 4:09 PM CDT [facility] [address] [place], [place] [address] EXAMINATION: Left breast ultrasound EXAM DATE/TIME: 03/10/2025 9:48 AM REASON FOR EXAM: Palpable lump Patient presents for scheduled biopsy. COMPARISON: 01/05/2025 TECHNIQUE: Targeted ultrasound of the left breast was performed. FINDINGS: No convincing mass in the area of concern, biopsy canceled. Six-month follow-up recommended. us Tucker Mcnamara MD ULTRASOUND Final Result * MG HE W NELIA DOMINGO DIGMelodie (01/05/2025 1:33 PM CDT) Anatomical Region Laterality Modality Breast Bilateral Mammography 01/05/2025 1:58 PM CDT Impressions 01/05/2025 2:13 PM CDT ===== IMPRESSION: ===== 1. Right breast asymmetries with no definite ultrasound:. Probably benign mass left breast. Six-month follow-up recommended for both of these. Assessment: ACR BI-RADS CATEGORY 3 - PROBABLY BENIGN FINDING(S) Recommendation: 1: Follow-up diagnostic mammogram and ultrasound bilateral in 6 months Comments: Ordered By: MEHNAZ KRAMER Interpreted By: Erick Morales, 01/05/2025 1:58 PM Narrative 01/05/2025 2:13 PM CDT [facility] [place] [address] Examination: Diagnostic bilateral mammogram and bilateral breast ultrasound [id number], [id number] Exam Date/Time: 01/05/2025 1:42 PM Reason For Exam: Palpable lump left breast. Left breast pain. Comparison: None Technique: Bilateral diagnostic mammography and bilateral breast ultrasound including sonographic grayscale images projections targeted in the region of interest. Doppler used to assess vasculature. 3D tomographic images were obtained. Tissue density: The breast tissue contains scattered fibroglandular densities. Findings: Mammogram: Right outer and upper breast asymmetries. Left breast appears benign with no suspicious microcalcification, architectural distortion, or mass. Area of left palpable lump in the lower inner quadrant appears unremarkable mammographically. Right breast ultrasound: There is of interest approximately 3 cm from the nipple from 9:00 through 12:00 appear normal. Left breast ultrasound: 8:00 position 4 cm from the nipple: This is the area of palpable lump. There is an ovoid, circumscribed, homogeneously hypoechoic mass which blends with surrounding fat, measuring 17 x 7 x 15 mm. No suspicious features. Possibly a prominent lobule of normal glandular tissue or fatty tissue. This is probably benign, six-month follow-up recommended. us Mehnaz Kramer MD MAMMO Final Re sult * HPV MRNA E6/E7 (07/22/2017 5:51 PM CASING SPLITTER) HPV MRNA E6/E7 Not Detected NOT DETECTED 07/31/2017 3:17 AM CASING SPLITTER [employer] HONEYJESSICA GLASS Comment: This test was performed using the APTIMA(R) HPV Assay([employer]This assay detects E6/E7 viral messenger RNA (mRNA)from 14 high-risk HPV types (16,18,31,33,35,39,45,51,52,56,58,59,66,68).For additional information please refer to:http://education.[employer]/faq/[email or web address](This link is being provided for informational/educational purposes only.)Test Performed by Lawrence Vernon,Gaikai Stephanie [facility],[address] [place] [id number] Ordoñez M.D., Ph.D., Director of [phone], [place] [id number] FLUID SPECIMEN / Unknown 07/22/2017 5:51 PM CASING SPLITTER 07/22/2017 5:51 PM CASING SPLITTER us Generic Conversion Md DRAPER PATHOLOGY/CYTOLOGY CARLOS GOODMAN Final Result [facility] [address] [address] [place] [address], [place] [phone] from Last 3 Months or Most Recently Relevant to Health Maintenance Insurance [facility] Care Teams Regional Business Manager Relationship Specialty Start Date End Date Mehnaz Kramer MD [address] [place] [address] PCP - General FAMILY PRACTICE 07/13/24
--- OUTSIDE RECORDS SUMMARY | 2025-04-27 13:55 | XMS_ITS | Encounter Summary ---
Author Organization [facility] Address [facility] [place] [address] Care Team Providers Care Manager Education Name Role Phone Sahra Franco MD Primary Care Provider Unavailab Sahra Valencia MD Primary Care Provider Unavailab She Joyner APNP Primary Care Provider Yoon Polk-Deborah Primary Care Provider [phone] Mehnaz Gunter MD Primary Care Provider + Encounter Details Date Type Department Care Team (Late st Contact Info) Description 02/05/2018 Abstract [facility] CONVERSION [address] [place] [address] , Generic Conversion, Social History Tobacco Use Types Packs/Day Years Used Date Smoking Tobacco: Never Assessed Comments Unknown Sex and Gender Information Value Date Recorded Sex Assigned at Female 10/23/2018 12:24 PM HANDLE ATTACHER Legal Sex Female 8:10 PM CDT Gender Identity Female 10/23/2018 12:24 PM HANDLE ATTACHER Sexual Orientation Straight 08/04/2018 3: 02 PM HANDLE ATTACHER documented as of this encounter Plan of Treatment Upcoming Encounters Date Type Department Care Team (Late Contact Info) Description 04/29/2025 12:20 PM CDT Office Visit [facility] Family Medicine [place] [address] [place] [address] Mehnaz Gunter MD [address] [place] [address] 07/22/2025 8:30 AM HANDLE ATTACHER Office Visit [facility] Family Medicine - [place] [address] [place] [address] Mehnaz Gunter MD [address] [place] [address] [phone] 09/07/2025 8:00 AM HANDLE ATTACHER Appointment [facility] [place] [place] [phone] Ab Mcnamara MD [address] [place] [address] [phone] 09/07/2025 8:30 AM HANDLE ATTACHER Appointment [facility] [place] [place] [place] [address] Ab Mcnamara MD [address] [place] [address] [phone] documented as of this encounter Visit Diagnoses Not on filedocumented in this encounter Care Teams Manager Education Relationship Specialty Start Date End Date Sahra Franco MD PCP - General INTERNAL MEDICINE 08/04/18 06/27/19 Sahra Franco MD PCP - General INTERNAL MEDICINE 06/28/19 05/18/20 She Aceves APNP [address] [phone] PCP - General Nurse Practitioner Family 05/19/2004/17 Yoon Polk PA-C [address] [facility] [address] [place] [address] [phone] PCP - General PHYSICIAN PIPING MANAGER 05/06/23 07/12/24 Mehnaz Gunter MD [address] [address] PCP - General FAMILY PRACTICE 07/13/24 documented as of this encounter
--- OUTSIDE RECORDS SUMMARY | 2025-04-27 13:55 | XMS_ITS | Clinical Summary ---
Author Organization [facility] [address] Address [facility] [place] [address] Care Team Providers Care Nurse Informaticist Name Role Phone Mehnaz Gunter MD Primary Care Provider Allergies No known active allergies Medications albuterol HFA (PROVENTIL HFA,VENTOLIN HFA,PROAIR HFA) 90 mcg/actuation inhaler Inhale 2 puffs every 6 (six) hours as needed for wheezing 3 each 4 Active Additional Information Patient not taking.Reported on 02/06/2025 Active Problems Problem Noted Date Diagnosed Date Allergic rhinitis 07/21/2024 Overview (02/20/2025): Takes flonase. Symptoms typically worsen seasonally. Insomnia 07/21/2024 Overview (02/20/2025): She has tried melatonin without improvement. She is currently managing using Tylenol PM regularly. Palpitations 06/09/2021 Encounters Date Type Department Care Team Description 02/20/2025 10:15 AM CDT Telemedicine [facility] Virtual Care [address] [place] [phone] Maria L Finnegan MD Acute recurrent pansinusitis (Primary Dx) 02/06/2025 1:03 PM CDT - 02/06/2025 11:59 PM CDT Hospital Encounter [place] [id number] [place] [address] Vaginal discharge; Vaginal irritation Discharge Disposition: Discharge to home or self care 02/06/2025 9:30 AM CDT Office Visit [facility] at [address] [address] Avila Granado NP Vaginal discharge (Primary Dx); Vaginal irritation 02/06/2025 Results [facility] at [address] [address] Avila Granado NP Vaginitis panel Vaginal, Urine culture Urine, clean voided from Last 3 Months Social History Tobacco Use Types Packs/Day Years Used Date Smoking Tobacco: Never Assessed Comments Unknown Sex and Gender Information Value Date Recorded Sex Assigned at Not on file Legal Sex Female 1:23 PM CDT Gender Identity Not on file Sexual Orientation Not on file Obstetrics History Last Filed Vital Signs Vital Sign Reading Time Taken Comments Blood Pressure 120/82 02/06/2025 9:26 AM CDT Pulse 88 02/06/2025 9:53 AM CDT Temperature 36.7 C (98.1 F) 02/06/2025 9:26 AM CDT Respiratory Rate 20 02/06/2025 9:26 AM CDT Oxygen Saturation 98% 02/06/2025 9:26 AM CDT Inhaled Oxygen Concentration - - Weight 97.5 kg (215 lb) 02/06/2025 9:26 AM CDT Height - - Body Mass Index - - Plan of Treatment Health Maintenance Due Date Last Done Comments Cervical Cancer Screening 1985 Depression Screening 1985 Hepatitis C Screening 1985 Varicella Vaccines (1 of 2 - 13+ 2-dose series) 1998 Hepatitis B Screening 2003 Regular Well Visit/Exam 18-64 2003 HPV Vaccines (1 - 3-dose SCDM series) 02/12/2012 Covid-19 Vaccine ( season) 2024 03/01/2022, 05/09/2021, 04/18/2021 Influenza Vaccine (#1) 2025 , 08/07/2022, 08/21/2019, Additional history exists Breast Cancer Screening-Mammogram 01/05/2026 01/05/2025, 01/05/2025 DTaP/Tdap/Td Vaccine (3 - Td or Tdap) 12/14/2027 12/13/2017, 12/03/2017 Pneumococcal vaccine <65 Aged Out No longer eligible based on patient's age to complete this topic Procedures Procedure Name Priority Date/Time Associated Diagnosis Comments URINE CULTURE Routine 02/06/2025 1:00 PM CDT Vaginal discharge Vaginal irritation VAGINITIS PANEL Routine 02/06/2025 1:00 PM CDT Vaginal discharge Vaginal irritation POCT URINALYSIS DIPSTICK Routine 02/06/2025 9:30 AM CDT Vaginal discharge Vaginal irritation from Last 3 Months Results * Vaginitis panel Vaginal (02/06/2025 1:00 PM CDT) [facility] Bacterial Vaginosis Not Detected Not Detected Comment:A negative result do es not preclude a possible infection. Results should be considered in conjunction with clinical presentation to determine the disease status. Josie group Not Detected Not Detected [facility] Josie glabrata/ krusei Not Detected Not Detected [facility] Trichomonas DNA Not Detected Not Detected [facility] Vaginal 02/06/2025 1:00 PM CDT 02/06/2025 2:09 PM CDT Narrative [facility] - 02/06/2025 3:16 PM CDT The Cepheid Xpert Xpress MVP test detects DNA targets from anaerobic bacteria associated with bacterial vaginosis, Josie species associated with vulvovaginal candidiasis, and Trichomonas vaginalis by nucleic acid amplification testing (NAAT). Results should be interpreted in conjunction with other clinical data. This test cannot be used to assess therapeutic success or failure because target nucleic acids may persist following antimicrobial therapy. This test has been cleared by the [place] Food and Drug Administration to aid in the diagnosis of vaginal infections in symptomatic women ages 14 and older. The performance characteristics of this test have been verified by the [facility]. Avila Granado NP LAB MICROBIOLOGY - GENERAL [facility] Final Result [facility] [place] [address] [address] Department [place] [address] [place] * Urine culture Urine, clean voided (02/06/2025 1:00 PM CDT) Report Final Report: Less than 100,000 colonies/mL (clinically insignificant growth based on current clinical standards) Comment:Testing performed by : [facility], [address] [place]., [address] Organism (CLINICALLY INSIGNIFICANT GROWTH [place] Urine, clean voided 02/06/2025 1:00 PM CDT 02/06/2025 6:04 PM CDT Narrative [facility] - 02/07/2025 7:59 PM CDT Testing performed by [facility] Microbiology Laboratory ([phone]) Avila Granado NP LAB MICROBIOLOGY - [facility] Final Result [place] [address] [address] Department [place] [address] * (ABNORMAL) POCT urinalysis dipstick (02/06/2025 9:30 AM CDT) Color, Urine, POC Light Yellow Clarity, ur, POC Clear Clear Glucose, ur, POC Negative Negative Bilirubin, ur, POC Negative Negative Ketones, ur, POC Negative Negative Specific [place], POC 1.025 1.003 - 1.030 Blood, ur, POC Hemolyzed, trace(A) Negative pH, ur, POC 5.5 5.0 - 8.0 Protein, ur, POC Negative Negative Urobilinogen, urine, POC 0.2 0.2 - 1.0 mg/dL Nitrite, ur, POC Negative Negative Leukocytes, ur, POC Negative Negative Lot Number [id number] Urine 02/06/2025 9:30 AM CDT Avila Granado NP POINT OF CARE TEST ORDERABLES F inal Result from Last 3 Months Insurance [facility] CHOICE PLUS [facility] CHOICE PLUS Care Teams Nurse Informaticist Relationship Specialty Start Date End Date Mehnaz Gunter MD [address] [facility] [address] [place] [address] PCP - General Family Medicine 02/06/25
--- OUTSIDE RECORDS SUMMARY | 2025-04-27 13:55 | XMS_ITS | Encounter Summary ---
Author Organization [facility] Address [facility] [place] [address] Care Team Providers Care Ceiling Insulation Blower Name Role Phone Sahra Franco MD Primary Care Provider [facility] She JoynerNP Primary Care Provider [phone] Yoon Polk-C Primary Care Provider [phone] Mehnaz Gunter MD Primary Care Provider + Encounter Details Date Type Department Care Team (Late st Contact Info) Description 01/13/2020 Qudini Message [facility] Patient Accounts [address] [place] [address] [place], [facility] Provider Please contact us Social History Tobacco Use Types Packs/Day Years [...] Sex Assigned at Female 10/23/2018 12:24 PM DYEING MACHINE BACK TENDER Legal Sex Female 8:10 PM CDT Gender Identity Female 10/23/2018 12:24 PM DYEING MACHINE BACK TENDER Sexual Orientation Straight 08/04/2018 3 :02 PM DYEING MACHINE BACK TENDER Occupation 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 Not on file Not on file Not on file documented as of this encounter Plan of Treatment Upcoming Encounters Date Type Department Care Team (Late st Contact Info) Description 04/29/2025 12:20 PM CDT Office Visit [address] [address] Mehnaz Gunter MD [address] [phone] 07/22/2025 8:30 AM DYEING MACHINE BACK TENDER Office Visit [address] [address] Mehnaz Gunter MD [address] [phone] 09/07/2025 8:00 AM DYEING MACHINE BACK TENDER Appointment [facility] [place] [address] Ab Mcnamara MD [address] [place] [phone] 09/07/2025 8:30 AM DYEING MACHINE BACK TENDER Appointment [facility] [place], [place] [phone] Ab Mcnamara MD [facility] [address] [address] documented as of this encounter Visit Diagnoses Not on filedocumented in this encounter Care Teams Ceiling Insulation Blower Relationship Specialty Start Date End Date Sahra Franco MD PCP - General INTERNAL MEDICINE 06/28/19 05/18/20 She Aceves APNP [id number] [address] PCP - General Nurse Practitioner Family 05/19/2004/17 Yoon Polk PA-C [address] [address] PCP - General PHYSICIAN MANAGER SUPPLY CHAIN 05/06/23 07/12/24 Mehnaz Gunter MD [address] [place] [address] PCP - General FAMILY PRACTICE 07/13/24 documented as of this encounter
[2025-04-27 14:04] LABS: Hematocrit 39.1 % (37.0-47.0); Hemoglobin 12.2 g/dL (12.0-15.0); Immature Granulocyte Percent A 0.3 % (0-0.5); Lymphocytes Absolute Auto 3.04 K/mm3 (0.9-3.2); Mean Corpuscular HGB Conc 31.2 g/dl (32-36); Mean Corpuscular Hemoglobin 26.6 pg (26-34); Mean Corpuscular Volume 85.2 fl (80-100); Nucleated Red Blood Cells Absolute Auto 0.000 K/mm3 (0.0-0.012); Nucleated Red Blood Cells Perc 0.0 % (0.0-0.2); Platelet Count Result 300 k/mm3 (150-375); Red Blood Count 4.59 M/mm3 (4.2-5.4); White Blood Count 10.2 K/mm3 (4.5-10.0)
[2025-04-27 14:06] LABS: BEDSIDEPREGUCG Negative (Negative)
[2025-04-27 14:09] LABS: Add Urine Microscopic? YES; Appearance Urine Clear (Clear); Glucose Urine UA Negative (Negative); Leukocyte Esterase Ur 1+ LEU/UL (Negative); Nitrate Urine Negative (Negative); Non Pathogenic Casts 0-2; Specific Grav Ur 1.021 (1.001-1.035)
--- OUTSIDE RECORDS SUMMARY | 2025-04-27 14:51 | XMS_ITS | Clinical Summary ---
Author Organization [facility] [address] Address [facility] [place] [address] Care Team Providers Care Campus Coordinator Name Role Phone Mehnaz Gunter MD Primary [...] Team Description 02/20/2025 10:15 AM CDT Telemedicine [facility] Virtual Care [address] [place] [phone] Maria L Finnegan MD Acute recurrent pansinusitis (Primary Dx) 02/06/2025 1:03 PM CDT - 02/06/2025 11:59 PM CDT Hospital Encounter [address] [phone] [place] [address] Vaginal discharge; Vaginal irritation Discharge Disposition: Discharge to home or self care 02/06/2025 9:30 AM CDT Office Visit [facility]ient [facility] at [address] [phone] Avila Granado NP Vaginal discharge (Primary Dx); Vaginal irritation 02/06/2025 Results Follow-Up [facility] Convenient Care at [address] [phone] Avila Granado NP Vaginitis panel [...] Vaginitis panel Vaginal (02/06/2025 1:00 PM CDT) [facility] Bacterial Vaginosis Not Detected Not Detected Comment:A negative result do es not preclude a possible infection. Results should be considered in conjunction with clinical presentation to determine the disease status. Josie group Not Detected Not Detected [facility] Josie glabrata/ krusei Not Detected Not Detected [facility] Trichomonas DNA Not Detected Not Detected [facility] Vaginal 02/06/2025 1:00 PM CDT 02/06/2025 2:09 PM CDT Narrative [facility] - 02/06/2025 3:16 PM CDT The Cepheid [...] this test have been verified by the [facility]. Avila Granado NP LAB MICROBIOLOGY - GENERAL [facility] [place] Final Result [place] [address] [address] Department [place] [address] CH * Urine culture Urine, clean voided (02/06/2025 1:00 PM CDT) Report Final Report: Less than 100,000 colonies/mL (clinically insignificant growth based on current clinical standards) Comment:Testing performed by : [facility], [address] [place]., [address] Organism (CLINICALLY INSIGNIFICANT GROWTH DEEPTHI Urine, clean voided 02/06/2025 1:00 PM CDT 02/06/2025 6:04 PM CDT Narrative [place] - 02/07/2025 7:59 PM CDT Testing performed by [facility] Microbiology Laboratory ([phone]) Avila Granado NP LAB MICROBIOLOGY - [facility] Final Result [place] [address] Department [place] [address] * (ABNORMAL) POCT urinalysis dipstick (02/06/2025 9:30 AM CDT) Color, Urine, POC Light Yellow Clarity, ur, POC Clear Clear Glucose, ur, POC Negative Negative Bilirubin, ur, POC Negative Negative Ketones, ur, POC Negative Negative Specific [place], POC 1.025 1.003 - 1.030 Blood, ur, POC Hemolyzed, trace(A) Negative pH, ur, POC 5.5 5.0 - 8.0 Protein, ur, POC Negative Negative Urobilinogen, urine, POC 0.2 0.2 - 1.0 mg/dL Nitrite, ur, POC Negative Negative Leukocytes, ur, POC Negative Negative Lot Number [id number] Urine 02/06/2025 9:30 AM CDT Avila Granado NP POINT OF CARE TEST ORDERABLES F inal Result from Last 3 Months Insurance [facility] PLUS [facility] PL[facility] Care Teams Campus Coordinator Relationship Specialty Start Date End Date Mehnaz Gunter MD [address] [facility] [address] [place] [address] PCP - General Family Medicine 02/06/25
--- OUTSIDE RECORDS SUMMARY | 2025-04-27 14:51 | XMS_ITS | Clinical Summary ---
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 [id number] [place] [id number]
[2025-04-27 14:57] LABS: Alanine Aminotransferase 26 U/L (6-35); Albumin Level 4.4 g/dL (3.5-5.1); Alkaline Phosphatase 71 U/L (38-126); Anion Gap 6 mmol/L (4-12); Aspartate Amino Transferase 34 U/L (14-36); Bilirubin,Total 0.4 mg/dL (0.2-1.3); Blood Urea Nitrogen 7 mg/dL (7-17); Calcium 9.0 mg/dL (8.4-10.2); Carbon Dioxide 24 mmol/L (22-30); Chloride 104 mmol/L (98-107); Estimated CRCL calculation 97 ml/min; Estimated Glomerular Filt Rate > 60; Glucose 115 mg/dL (65-110); Lipase 80 U/L (23-300); Potassium 4.1 mmol/L (3.4-5.0); Sodium 134 mmol/L (137-145); Total Protein 7.7 g/dL (6.3-8.2)
--- NOTE | 2025-04-27 17:23 | ED.GENADULT ---
HPI - General Adult General Chief complaint: Abdominal Pain Stated complaint: LUQ abdominal pain for couple of days. Time Seen by Provider: 04/27/25 14:16 History of Present Illness HPI narrative: 40-year-old female present to the emergency department for evaluation for left upper quadrant and left flank pain. Patient states the pain was sharp and does feel similar to when she had a gallbladder attack but acknowledges this is on the other side. Patient does have prior history of cholecystectomy. Patient denies any prior history of kidney stones. Patient denies any pain with urination. Patient is in no distress at time of evaluation. Related Data Home Medications ?Medication ?Instructions ?Recorded ?Confirmed ?Last Taken ?Type albuterol sulfate 90 mcg/actuation 2 puff inhalation PRN PRN 06/20/24 08/11/24 Unknown History aerosol inhaler Shortness Of Breath Or Wheezing benzonatate 200 mg capsule 200 mg PO DIRECTED 08/11/24 08/11/24 Unknown History dpsgskckdpvcsqg-tgezdktktgqduax-WB 10 ml PO DIRECTED 08/11/24 08/11/24 Unknown History 2 mg-30 mg-10 mg/5 mL oral syrup montelukast 10 mg tablet 10 mg PO DAILY 08/11/24 08/11/24 Unknown History Allergies Allergy/AdvReac Type Severity Reaction Status Date / Time No Known Allergies Allergy Verified 04/27/25 13:44 Review of Systems Review of Systems: All systems reviewed & are unremarkable except as noted in HPI and below PMFSH Past Medical History Medical History (Updated 04/27/25 @ 17:29 by David Sanchez MD) Asthma Advanced maternal age (AMA) in Surgical History Surgical History (Updated 08/13/24 @ 09:53 by Elisabet Wayne NP) Tubal ligation status History of section x3 History of cholecystectomy Family History Family History Mother Colon polyp Grandparent Diabetes mellitus Son Asthma Social History Social History Smoking status: Former smoker Second hand tobacco smoke exposure: No Smoking end date: 09/16/16 Alcohol intake: current Substance use: never Lack of Transportation: No Lack of Food: Never True Current Housing: I Have Housing Concerned About Future Housing: No Difficulty Paying Gas/Electric Bills: No Difficulty Paying for Meds: No Currently Unemployed: No Education: Associate Degree Difficulty w/ Childcare or Family Care: No Spiritual care concerns: No Exam Narrative: APPEARANCE: Well appearing, no pain, no distress, well-nourished. HEAD: normocephalic, atraumatic. EYES: PERRLA/EOMI, conjunctivae clear. NOSE: Normal no drainage EARS:TMS clear with good light reflex. THROAT: Pharynx clear, no exudate. NECK: Supple. No adenopathy, no masses. RESPIRATORY: Airway patent, respirations nonlabored. Clear to auscultation bilaterally, no rales, rhonchi, wheezing. CARDIOVASCULAR: Regular rate and rhythm without murmurs rubs or gallops. ABDOMINAL: Mild left CVA tenderness to palpation MUSCULOSKELETAL: Moves all extremities. Strength/ROM intact, No edema, No calf tenderness. NEURO: Alert. Cranial nerves II through XII intact. Good gait. Good coordination SKIN: Warm, dry. Normal Color Course Vital Signs Vital signs: Vital Signs Temperature 98.2 F 04/27/25 13:42 Pulse Rate 98 04/27/25 13:42 Respiratory Rate 16 04/27/25 13:42 Blood Pressure 130/84 04/27/25 13:42 Pulse Oximetry 99 04/27/25 13:42 Temperature 98 F 04/27/25 17:49 Pulse Rate 82 04/27/25 17:49 Respiratory Rate 18 04/27/25 17:49 Blood Pressure 124/76 04/27/25 17:49 Pulse Oximetry 97 04/27/25 17:49 Medical Decision Making [facility] Narrative Medical decision making narrative: 40-year-old female presents emergency department for evaluation for left flank pain. Patient is afebrile but does have a leukocytosis of 10.2 and hemoglobin of 12.2. No acute abnormalities on his CMP UA was positive for leukocyte esterase red blood cells and white blood cells moderate squamous with no bacteria. Patient denies any urinary symptoms. CT scan was ordered to evaluate for kidney stones and was negative for left-sided pathology. Patient does admit that she has been using Tums more frequently and does have a history of gastritis. Urine culture was ordered to evaluate for infection since patient is asymptomatic for any urinary symptoms. Patient will be started on Prilosec for home advised to avoid alcohol avoid NSAIDs and have close follow-up with her primary care physician and with GI. All questions concerns were addressed. Differential Diagnosis Differential Diagnosis: Renal calculi, UTI, diverticulitis, colitis, gastritis, duodenitis Vital Signs Vital Signs: Vital Signs Temperature 98.2 F 04/27/25 13:42 Pulse Rate 98 04/27/25 13:42 Respiratory Rate 16 04/27/25 13:42 Blood Pressure 130/84 04/27/25 13:42 Pulse Oximetry 99 04/27/25 13:42 Temperature 98 F 04/27/25 17:49 Pulse Rate 82 04/27/25 17:49 Respiratory Rate 18 04/27/25 17:49 Blood Pressure 124/76 04/27/25 17:49 Pulse Oximetry 97 04/27/25 17:49 Lab Data Lab results reviewed: Yes I reviewed the patient's lab results. 04/27/25 13:57 04/27/25 13:57 Labs: Lab Results 04/27/25 04/27/25 Range/Units 13:57 14:01 WBC 10.2 H (4.5-10.0) K/mm3 RBC 4.59 (4.2-5.4) M/mm3 Hgb 12.2 (12.0-15.0) g/dL Hct 39.1 (37.0-47.0) % MCV 85.2 (80-100) fl MCH 26.6 (26-34) pg MCHC 31.2 L (32-36) g/dl RDW 14.6 H (11.5-14.5) % Plt Count 300 (150-375) k/mm3 MPV 10.2 (7.4-10.4) fl Immature Gran % (Auto) 0.3 (0-0.5) % Neut % (Auto) 61.6 (45.5-73.1) % Lymph % (Auto) 29.9 (18.3-44.2) % [place] % (Auto) 4.5 (2.6-8.5) % Eos % (Auto) 3.5 (0-4.4) % Baso % (Auto) 0.2 (0.2-1.2) % Lymph # (Auto) 3.04 (0.9-3.2) K/mm3 [place] # (Auto) 0.5 (0.1-0.6) K/mm3 Eos # (Auto) 0.4 H (0-0.3) K/mm3 Baso # (Auto) 0.0 (0.0-0.1) K/mm3 Abs Immat Gran (auto) 0.03 (0.00-0.031) K/mm3 Absolute Neuts (auto) 6.3 (1.3-6.7) K/mm3 Absolute Nucleated RBC 0.000 (0.0-0.012) K/mm3 Nucleated RBC % 0.0 (0.0-0.2) % Sodium 134 L (137-145) mmol/L Potassium 4.1 (3.4-5.0) mmol/L Chloride 104 (98-107) mmol/L Carbon Dioxide 24 (22-30) mmol/L Anion Gap 6 (4-12) mmol/L BUN 7 (7-17) mg/dL Creatinine 0.73 (0.7-1.0) mg/dL Estim Creat Clear Calc 97 ml/min Estimated GFR > 60 (59 - ) Glucose 115 H (65-110) mg/dL Calcium 9.0 (8.4-10.2) mg/dL Total Bilirubin 0.4 (0.2-1.3) mg/dL AST 34 (14-36) U/L ALT 26 (6-35) U/L Alkaline Phosphatase 71 (38-126) U/L Total Protein 7.7 (6.3-8.2) g/dL Albumin 4.4 (3.5-5.1) g/dL Lipase 80 (23-300) U/L Urine Color Yellow (Yellow) Urine Appearance Clear (Clear) Urine pH 5.5 (5.0-9.0) Ur Specific [place] 1.021 (1.001-1.035) Urine Protein Negative (Negative) mg/dL Urine Glucose (UA) Negative (Negative) mg/dL Urine Ketones Negative (Negative) mg/dL Ur Blood (Man) 2+ H (Negative) Urine Nitrate Negative (Negative) Urine Bilirubin Negative (Negative) Urine Urobilinogen 0.2 (<2.0) mg/dL Leukocyte Esterase Rfl 1+ H (Negative) KIKO/UL Urine RBC 6-10 H (0-2) /hpf Urine WBC 6-10 H (0-3) /hpf Ur Squamous Epith Cells Moderate (Few) /hpf Urine Bacteria None seen /hpf Urine Casts 0-2 POC Urine HCG, Qual Negative (Negative) Imaging Data Radiologist's impression: Impressions Abdomen/Pelvis CT 04/27/25 15:43 IMPRESSION: 3 mm nonobstructing calculus within the lower pole of the right kidney. No additional findings within the lower chest, abdomen or pelvis to account for patient's symptoms. Discharge Plan Discharge Clinical Impression: Left upper quadrant abdominal pain Patient Disposition: Home Condition: Stable Instructions: Antibiotic Form, Gastritis (DC), Diet for Stomach Ulcers and Gastritis (ED), Abdominal Pain (ED), Duodenitis (ED) Additional Instructions: Avoid alcohol and avoid NSAIDs. Omeprazole as directed for the next 14 days. Follow a bland diet. Have close follow-up with your primary care physician. I also recommend close follow-up with GI. If you have any worsening symptoms then please call or return to the emergency department. Patient Language: Omani Prescriptions: New omeprazole 20 mg capsule,delayed release(DR/EC) 20 mg PO DAILY 14 Days Qty: 14 0RF No Action albuterol sulfate 90 mcg/actuation HFA aerosol inhaler 2 puff INHALATION PRN PRN (Reason: Shortness Of Breath Or Wheezing) benzonatate 200 mg capsule 200 mg PO DIRECTED montelukast 10 mg tablet 10 mg PO DAILY afjsswrnpppdpnm-onuikngot-TG 2-30-10 mg/5 mL syrup 10 ml PO DIRECTED albuterol sulfate 90 mcg/actuation HFA aerosol inhaler 2 puff inhalation QID PRN (Reason: shortness of breath or wheezing) Qty: 6.7 0RF Rx Instructions: as needed prednisone 20 mg tablet 20 mg PO BID Qty: 10 0RF Rx Instructions: take with food codeine-guaifenesin 10-100 mg/5 mL liquid 5 ml PO Q4-6H Qty: 120 0RF Follow-up/Referrals: Jani,Mehnaz Pierre MD [Primary Care Provider] - Moose Parnell MD [Physician] -
[2025-04-27 17:49] VITALS: BP 124/76; PULSE 82; RESP 18; TEMP 36.6; O2SAT 97
== END 2025-04-27 17:50 | disposition home or self-care (01) ==
PROVIDERS: Physician Assistant; Emergency Provider Emergency Medicine; PCP Student in an Organized Health Care Education/Training Program
DX: R10.12 Left upper quadrant pain (principal); J45.909 Unspecified asthma, uncomplicated; Z90.49 Acquired absence of other specified parts of digestive tract; Z87.891 Personal history of nicotine dependence
CPT/HCPCS: 36415; 74176; 80053; 81001; 81025; 83690; 85025; 99284

== ENCOUNTER 2025-05-10 16:54 | Emergency (ER) | payer OTHER, SELFPAY ==
--- NOTE | 2025-05-10 16:58 | ED_ITS ---
HPI - General Adult General Chief complaint: Wound/Laceration Stated complaint: Swollen Lip/Chin Time Seen by Provider: 05/10/25 17:03 Source: patient, RN notes reviewed and old records reviewed Mode of arrival: ambulatory Limitations: no limitations History of Present Illness HPI narrative: 40-year-old female presents to the [facility] with swollen bottom lip, chin area. Started about 1 hour. Denies being on lisinopril. Denies any new foods. Denies any creams ointments lotions detergents. No trouble breathing, no tongue swelling. No throat swelling. Onset (ago): hour(s) (1) Treatments prior to arrival: none Related Data Home Medications ?Medication ?Instructions ?Recorded ?Confirmed ?Last Taken ?Type albuterol sulfate 90 mcg/actuation 2 puff inhalation P RN PRN 06/20/24 05/10/25 Unknown History aerosol inhaler Shortness Of Breath Or [place] ing fluticasone 250 mcg-salmeterol 50 1 inh inhalation Q12 H 05/10/25 05/10/25 Unknown History mcg/dose blistr powdr for inhalation (Wixela Inhub) Allergies Allergy/AdvReac Type Severity Reaction Status Date / Time No Known Allergies Allergy Verified 05/10/25 16:59 Review of Systems Review of Systems: All systems reviewed & are unremarkable except as noted in HPI and below Constitutional: Constitutional: Reports no additional constitutional complaints ENT: Reports as per HPI Cardiovascular: Cardiovascular: Reports no additional cardiovascular complaints, Denies chest pain and Denies dyspnea Respiratory: Respiratory: Reports no additional respiratory complaints, Denies chest congestion, Denies cough and Denies dyspnea Musculoskeletal: Musculoskeletal: Reports no additional musculoskeletal complaints Integumentary/Breasts: Skin/Breast: Reports system reviewed and no additional complaints, except as docu PMFSH Past Medical History Medical History Asthma Advanced maternal age (AMA) in Surgical History Surgical History Tubal ligation status History of section x3 History of cholecystectomy Family History Family History Mother Colon polyp Grandparent Diabetes mellitus Son Asthma Social History Social History Smoking status: Former smoker Second hand tobacco smoke exposure: No Smoking end date: 09/16/16 Alcohol intake: current Substance use: never Lack of Transportation: No Lack of Food: Never True Current Housing: I Have Housing Concerned About Future Housing: No Difficulty Paying Gas/Electric Bills: No Difficulty Paying for Meds: No Currently Unemployed: No Education: Associate Degree Difficulty w/ Childcare or Family Care: No Spiritual care concerns: No Comments At the time of my signature, I reviewed and agree with the nursing past medical, surgical, social, and family history. There is no relevant family history pertinent to the patient complaint. Exam Const: General: cooperative, healthy appearing, comfortable, no acute distress, well developed, alert and well nourished Nutritional Appearance: well nourished Orientation/consciousness: patient oriented x3 Limitations: no limitations HENMT: Head: normal to inspection Ears: hearing grossly normal bilaterally, external ears normal, TM's normal bilaterally, EAC's normal, mastoids normal and no periauricular adenopathy Mouth: Yes Normal oral and palatal mucosa present, Yes tongue normal, Yes moist mucous membranes and Yes lip abnormal (Bottom right side mildly swollen without increased erythema) Throat: posterior oropharynx normal, uvula midline and no uvular edema Eyes: General: appearance normal, both eyes and all related structures Alignment and Position: alignment normal Neck: Neck: normal visual inspection, full ROM, no lymphadenopathy and no meningeal signs Chest: Chest palpation & inspection: normal inspection of the chest Resp: Effort & Inspection: normal respiratory effort and able to speak in complete sentences Auscultation: clear to auscultation bilaterally, no crackles, no rales, no rhonchi and no wheezes Cardio: Rate: regular rate Skin: General skin exam: normal color and no rashes or lesions noted Neuro: General: patient oriented x3, gait normal, moves all extremities and no meningeal signs Cognition (Neuro): normal cognition Speech: normal speech Gait exam (Neuro): Normal gait present Extrem: General: normal to inspection, full ROM, capillary refill normal and normal gait Psych: Appearance: grossly normal and well kempt Mental Status: mental status grossly normal Speech and movement: Normal speech and movement present and Clear speech present Affect: normal affect Attitude: cooperative Course Course Level of Care: Express Care Visit Vital Signs Vital signs: Vital Signs Temperature 97.9 F 05/10/25 17:03 Pulse Rate 99 05/10/25 17:03 Respiratory Rate 16 05/10/25 17:03 Blood Pressure 131/85 05/10/25 17:03 Pulse Oximetry 98 05/10/25 17:03 Temperature 97.9 F 05/10/25 17:03 Pulse Rate 99 05/10/25 17:03 Respiratory Rate 16 05/10/25 17:03 Blood Pressure 131/85 05/10/25 17:03 Pulse Oximetry 98 05/10/25 17:03 Reviewed Medical Decision Making MDM Narrative Medical decision making narrative: Patient sitting comfortably in exam room. Nontoxic, vitals stable. Patient in no acute distress Patient presents with 1 hour of lower lip swelling. No medications of concern, no medications. Patient treated with medication in clinic, prednisone, Benadryl and Pepcid. Significant other states that he would drive home. Patient appropriate for outpatient treatment with close follow-up with strict signs and symptoms proceed to the emergency room which she verbalized understanding Discharge instructions reviewed with patient, as well as provided in writing per nursing staff. The instructions also include specific and strict return/GO TO THE ER as well as f/u information. All questions have been answered, and the patient deny any further questions with discharge and discharge plan. Some parts of this dictation were generated by voice recognition software and may contain typographical and/or grammatical inaccuracies. Differential Diagnosis Differential Diagnosis: Allergic reaction, angioedema Medical Records Medical records reviewed: Yes I reviewed the external patient's medical records. Vital Signs Vital Signs: Vital Signs Temperature 97.9 F 05/10/25 17:03 Pulse Rate 99 05/10/25 17:03 Respiratory Rate 16 05/10/25 17:03 Blood Pressure 131/85 05/10/25 17:03 Pulse Oximetry 98 05/10/25 17:03 Temperature 97.9 F 05/10/25 17:03 Pulse Rate 99 05/10/25 17:03 Respiratory Rate 16 05/10/25 17:03 Blood Pressure 131/85 05/10/25 17:03 Pulse Oximetry 98 05/10/25 17:03 Reviewed Lab Data Lab results reviewed: Yes I reviewed the patient's lab results. Labs: Reviewed Critical Care Time Critical Care Time Critical Care Time: No Discharge Plan Discharge Clinical Impression: Lip swelling Patient Disposition: Home Condition: Stable Instructions: Angioedema (ED) Additional Instructions: The most important part of your care is follow up with Primary care provider. Take Benadryl 25 mg every 8 hours for itching Take Zyrtec 10 mg every day Take Pepcid 20mg daily for 7 days Take the steroids starting tomorrow Avoid hot showers, Take cool showers. Hot showers will make rashes worse Apply cool compresses every 2-3 hours for 15 minutes Go to the ER for new or worsening symptoms such as shortness of breath. Patient Language: Palauan Prescriptions: New prednisone 20 mg tablet See Rx Instructions .Route .COMPLEX Qty: 9 0RF Rx Instructions: Take 40 mg daily for 3 days, 20 mg daily for 3 days No Action albuterol sulfate 90 mcg/actuation HFA aerosol inhaler 2 puff INHALATION PRN PRN (Reason: Shortness Of Breath Or Wheezing) fluticasone propion-salmeterol [Wixela Inhub] 250-50 mcg/dose blister with device 1 inh inhalation Q12H Follow-up/Referrals: Jani,Mehnaz Pierre MD [Primary Care Provider, Unknown] - 2 Weeks Clinical Impression: Lip swelling Stand Alone Forms: Work/School Release IP Time of Disposition: 17:22
[2025-05-10 17:03] VITALS: BP 131/85; PULSE 99; RESP 16; TEMP 36.6; O2SAT 98
[2025-05-10] MEDS: diphenhydrAMINE HCl CAP 25 MG CAPSULE PO (17:13)
[2025-05-10] MEDS: FAMOTIDINE 20 MG TABLET PO (17:14)
== END 2025-05-10 17:27 | disposition home or self-care (01) ==
PROVIDERS: Emergency Provider Nurse Practitioner; PCP Student in an Organized Health Care Education/Training Program
DX: R22.0 Localized swelling, mass and lump, head (principal); J45.909 Unspecified asthma, uncomplicated; Z87.891 Personal history of nicotine dependence
CPT/HCPCS: 99213; A9270; G0463; J7512

== ENCOUNTER 2025-08-11 12:08 | Emergency (ER) | payer OTHER, SELFPAY ==
--- NOTE | ~2025-08-11 | CT_ITS ---
CT ABDOMEN AND PELVIS WITHOUT CONTRAST Clinical History: RUQ pain and n/v s/p golytely Comparison: CT abdomen and pelvis 04/27/2025 Technique: Unenhanced axial images lung bases to symphysis pubis Coronal, sagittal reformats CT images acquired with automatic exposure control for dose reduction DLP: 1206 mGy-cm Findings: Without intravenous contrast, sensitivity for detecting visceral parenchymal abnormalities decreased. Lung bases: Clear. Visualized heart and pericardium: Unremarkable. Liver: Enlarged. Steatosis. Gallbladder: Removed. Spleen: Unremarkable. Pancreas: Unremarkable. Adrenal glands: Unremarkable. Kidneys: Right kidney- No hydronephrosis. Tiny stone. Left kidney- No hydronephrosis. No renal stones. Distal esophagus/stomach: Unremarkable. Small bowel loops: Normal caliber and wall thickness. Colon: Normal caliber and wall thickness. Normal RLQ appendix. Nodes: No enlarged nodes. Peritoneum: No ascites. No free intraperitoneal air. Urinary bladder: Unremarkable. Uterus: Unremarkable. Adnexa: No masses. Bones: No acute bony abnormality. Soft tissues: Unremarkable. Unopacified abdominal aorta: No aneurysmal dilatation. IMPRESSION: 1. No acute abnormality. 2. Findings as above. Reviewed, dictated and finalized at location [facility]
--- OUTSIDE RECORDS SUMMARY | 2025-08-11 11:45 | XMS_ITS | Encounter Summary ---
Author Organization [facility] Healthcare Address [address] [place] [id number] Care Team Providers Care Child Nurse Name Role Phone Justa Wilkinson NP Primary Care Provider [phone] Reason for Visit * Reason Comments Fever [place] Feverish in the middle of night, stomach pains since Saturday, was drinking the drink for colonoscopy vomited, and stomach pains then started Saturday, still having burning pains Encounter Details Date Type Department Care Team (Late st Contact Info) Description 08/11/2025 11:45 AM DESIGN PRINTING MACHINE SET UP OPERATOR Office Visit [facility] at [address] [address] Avila Granado NP [address] [place] [address] [address] [place] [address] Right upper quadrant abdominal pain (Primary Dx); Abdominal tenderness of left lower quadrant, unspecified whether rebound tenderness present; Right upper quadrant abdominal tenderness, unspecified whether rebound tenderness present; Diarrhea, unspecified type Social History Tobacco Use Types Packs/Day Years Used Date Smoking Tobacco: Former Cigarettes Q uit: 2017 Smokeless Tobacco: Never Alcohol Use Standard Drinks/Week Comments Yes 0 (1 standard drink = 0.6 oz pur e alcohol) PHQ-2 Answer Date Recorded PHQ-2 Total Score (If total score is 3 or more points, staff should administer the PHQ-9) 0 06/25/2025 AUDIT-C Answer Date Recorded Q1: How often do you have a drink containing alc ohol? Monthly or less 07/22/2025 Q2: How many drinks containi ng alcohol do you have on a typical day when you are drinking? 1 or 2 07/22/2025 Q3: How often do you have si x or more drinks on one occasion? Never 07/22/2025 Comments No Sex and Gender Information Value Date Recorded Sex Assigned at Not on file Legal Sex Female 1:23 PM CDT Gender Identity Not on file Sexual Orientation Not on file documented as of this encounter Last Filed Vital Signs Vital Sign Reading Time Taken Comments Blood Pressure 109/74 08/11/2025 11:07 AM DESIGN PRINTING MACHINE SET UP OPERATOR Pulse 84 08/11/2025 11:07 AM DESIGN PRINTING MACHINE SET UP OPERATOR Temperature 36.4 C (97.6 F) 08/11/2025 11:07 AM DESIGN PRINTING MACHINE SET UP OPERATOR Respiratory Rate 18 08/11/2025 11:07 AM DESIGN PRINTING MACHINE SET UP OPERATOR Oxygen Saturation 98% 08/11/2025 11:07 AM DESIGN PRINTING MACHINE SET UP OPERATOR Inhaled Oxygen Concentration - - Weight 101.4 kg (223 lb 8 oz) 08/11/2025 11:07 A M DESIGN PRINTING MACHINE SET UP OPERATOR Height 160 cm (5' 3) 08/11/2025 11:07 AM DESIGN PRINTING MACHINE SET UP OPERATOR Body Mass Index 39.59 08/11/2025 11:07 AM DESIGN PRINTING MACHINE SET UP OPERATOR documented in this encounter Functional Status documented as of this encounter Progress Notes * Avila Granado NP - 08/11/2025 11:45 AM CST Images from the original note were not included. Subjective/Objective Patient ID: Hedy Luna is a 40 y.o. female. This patient has verbally consented to recording this visit in order to utilize AI technology in generating this note. Chief Complaint Fever ([place] Feverish in the middle of night, stomach pains since Saturday, was drinking the drink forcolonoscopy vomited, and stomach pains then started Saturday, still having burning pains ) History of Present Illness Hedy Luna is a 40 year old female who presents with abdominal pain and diarrhea following a failed colonoscopy preparation on , 6 days ago. She began colonoscopy prep at 5 PM, was able to drink eight cups of solution, then vomited, and the colonoscopy was rescheduled. Since then she has had ongoing abdominal pain and diarrhea. The pain is a burning sensation to the right of the umbilicus. It worsens with sitting and lying onher side and improves when standing. She felt feverish around 1-1:30 AM last night but did not check her temperature. She had diarrhea about four to five times yesterday. She is unsure about blood or mucus in the stool because she is currently on her typically heavy menstrual period. She has intermittent nausea but has not vomited again since the prep. She notes two episodes of unexplained vomiting at night in thepast month. She denies and has a tubal ligation. She had a prior colonoscopy six years ago. She is undergoing screening due to her mother's precancerous polyps. She has had a cholecystectomy and a prior ovarian cyst on imaging. Her appendix and ovaries are intact. Review of Systems All other systems reviewed and are negative. Physical Exam ABDOMEN: Tender to palpation Physical Exam Vitals and nursing note reviewed. Constitutional: General: She is awake. She is not in acute distress. Appearance: Normal appearance. She is not ill-appearing. HENT: Head: Normocephalic and atraumatic. Cardiovascular: Rate and Rhythm: Normal rate and regular rhythm. Heart sounds: Normal heart sounds. Pulmonary: Effort: Pulmonary effort is normal. Breath sounds: Normal breath sounds. Abdominal: General: Bowel sounds are normal. Palpations: Abdomen is soft. Tenderness: There is abdominal tenderness in the right upper quadrant and left lower quadrant. There is no right CVA tenderness, left CVA tenderness or guarding. Positive signs include Rovsing's sign. Neurological: Mental Status: She is alert and oriented to person, place, and time. Gait: Gait is intact. Gait normal. Psychiatric: Mood and Affect: Mood normal. Behavior: Behavior normal. Behavior is cooperative. Vitals: 08/11/25 1107 BP: 109/74 Pulse: 84 Resp: 18 Temp: 36.4 ??C (97.6 ??F) SpO2: 98% Weight: 101.4 kg (223 lb 8 oz) Height: 160 cm (5' 3) No results found. Past Medical History: Diagnosis Date Asthma Cholelithiasis Colon polyp Kidney stone Menstrual problem Current Outpatient Medications: albuterol HFA (PROVENTIL HFA,VENTOLIN HFA,PROAIR HFA) 90 mcg/actuation inhaler, Inhale 2 puffs every 6 (six) hours as needed for wheezing, Disp: 3 each, Rfl: 4 EPINEPHrine 0.3 mg/0.3 mL auto-injection syringe, Inject 0.3 mL (0.3 mg total) into the muscle as instructed as needed for anaphylaxis Call 911 after use., Disp: 1 each, Rfl: 0 predniSONE (DELTASONE) 20 mg tablet, Take by mouth, Disp: , Rfl: Wixela Inhub 250-50 mcg/dose diskus inhaler, INHALE 1 PUFF INTO THE LUNGS TWICE DAILY, Disp: , Rfl: ergocalciferol (VITAMIN D) 50,000 unit capsule, Take 1 capsule (50,000 Units total) by mouth once aweek (Patient not taking: Reported on 08/11/2025), Disp: 12 capsule, Rfl: 1 gabapentin (NEURONTIN) 100 mg capsule, Take 1 capsule (100 mg total) by mouth nightly (Patient not taking: Reported on 08/11/2025), Disp: 30 capsule, Rfl: 1 No Known Allergies Social History Tobacco Use Smoking status: Former Current packs/day: 0.00 Types: Cigarettes Quit date: 2017 Years since quittin.9 Smokeless tobacco: Never Substance and Sexual Activity Drug use: None Sexual activity: None Alcohol Use: Not At Risk (07/22/2025) AUDIT-C Frequency of Alcohol Consumption: Monthly or less Average Number of Drinks: 1 or 2 Frequency of Binge Drinking: Never Past Surgical History: Procedure Laterality Date SECTION 4x CHOLECYSTECTOMY TUBAL LIGATION Procedures Assessment/Plan 1. Right upper quadrant abdominal pain (Primary) - POC Influenza A/B, COVID-19 antigen - POCT rapid strep A 2. Abdominal tenderness of left lower quadrant, unspecified whether rebound tenderness present 3. Right upper quadrant abdominal tenderness, unspecified whether rebound tenderness present 4. Diarrhea, unspecified type Results Recent Results (from the past 4 hours) POCT rapid strep A Collection Time: 08/11/25 11:26 AM Result Value Ref Range Rapid Strep A, POC Negative Negative POC Influenza A/B, COVID-19 antigen Collection Time: 08/11/25 11:38 AM Result Value Ref Range Influenza A Ag, POC Negative Negative Influenza B Ag, POC Negative Negative COVID-19 Ag POC Presumptive Negative Presumptive Negative, Invalid Assessment & Plan Abdominal pain with diarrhea, possible appendicitis or bowel infection Acute abdominal pain with diarrhea post-colonoscopy prep. Differential includes appendicitis, bowelinfection, or abscess. Rovsing sign positive. Tubal possibility but less likely. - Referred to ER for imaging and blood work to rule out appendicitis, bowel infection, or abscess. - Advised to inform ER staff of symptoms and history. - Patient's to take her directly to ED from clinic Disposition Treatment plan including expectations, follow up, and return precautions discussed with patient/parent, verbalizes understanding. Medication dosage, use, and potential adverse reactions discussed with patient/parent. Advised to follow up with PCP if symptoms do not resolve as expected or sooner if condition worsens. Signs/symptoms warranting ER evaluation reviewed. Patient and/or guardian was given an opportunity to ask questions, questions answered. Avila Granado NP This office note has been partially dictated using [employer] software, and as a result portions of the record may have been created with this software. Occasional wrong-word or '[id number]' substitutions may have occurred due to the inherent limitations of voice recognition software. Read the chartcarefully and recognize, using context, where substitutions have occurred. Cosigned by Micky Christian MD at 08/11/2025 12:11 PM DESIGN PRINTING MACHINE SET UP OPERATOR GN PRINTING MACHINE SET UP OPERATOR GN PRINTING MACHINE SET UP OPERATOR documented in this encounter Plan of Treatment Upcoming Encounters Date Type Department Care Team (Late st Contact Info) Description 08/24/2025 8:30 AM DESIGN PRINTING MACHINE SET UP OPERATOR Hospital Encounter [address] [address] Taylor Milligan MD [address] [facility] [address] [place] [address] 08/24/2025 8:30 AM DESIGN PRINTING MACHINE SET UP OPERATOR Anesthesia Event [address] [address] Bahman Nieves, ROBERT [address] [place] [address] 08/24/2025 8:30 AM DESIGN PRINTING MACHINE SET UP OPERATOR - 08/24/2025 9:15 AM DESIGN PRINTING MACHINE SET UP OPERATOR Surgery [address] [address] Taylor Milligan MD [address] [facility] [address] [place] [address] COLONOSCOPY Scheduled Procedures Name Priority Associated Diagnoses Date/Ti me COLONOSCOPY Polyp of colon, unspecified part of colon, unspecified type 08/24/2025 8:30 AM DESIGN PRINTING MACHINE SET UP OPERATOR documented as of this encounter Procedures Procedure Name Priority Date/Time Associated Diagnosis Comments POC INFLUENZA A/B, COVID-19 ANTIGEN Routine 08/11/2025 11:38 AM DESIGN PRINTING MACHINE SET UP OPERATOR Right upper quadrant abdominal pain POCT RAPID STREP Routine 08/11/2025 11:2 6 AM DESIGN PRINTING MACHINE SET UP OPERATOR Right upper quadrant abdominal pain documented in this encounter Results * POC Influenza A/B, COVID-19 antigen (08/11/2025 11:38 AM DESIGN PRINTING MACHINE SET UP OPERATOR) Influenza A Ag, POC Negative Negative [facility] Influenza B Ag, POC Negative Negative [facility] COVID-19 Ag POC Presumptive Negative Presumptive Negative, Invalid [facility] Nasal 08/11/2025 11:3 8 AM DESIGN PRINTING MACHINE SET UP OPERATOR us Avila Granado NP POINT OF CARE TEST ORDERABLES F inal Result Performing Organization Address City/State/[facility] Co de Phone Number [facility] [address] [place] [address] * POCT rapid strep A (08/11/2025 11:26 AM DESIGN PRINTING MACHINE SET UP OPERATOR) Rapid Strep A, POC Negative Negative Swab 08/11/2025 11:2 6 AM DESIGN PRINTING MACHINE SET UP OPERATOR us Avila Granado NP POINT OF CARE TEST ORDERABLES F inal Result documented in this encounter Visit Diagnoses Diagnosis Colon polyps- Primary Benign neoplasm of colon Right upper quadrant abdominal pain- Primary Abdominal tenderness of left lower quadrant, unspecified whether rebound tenderness present Right upper quadrant abdominal tenderness, unspecified whether rebound tenderness present Diarrhea, unspecified type Polyp of colon, unspecified part of colon, unspecified type documented in this encounter Care Teams Child Nurse Relationship Specialty Start Date End Date Justa Wilkinson NP [facility] [phone] PCP - General Family Medicine 06/25/25 documented as of this encounter
--- OUTSIDE RECORDS SUMMARY | 2025-08-11 11:45 | XMS_ITS | Encounter Summary ---
Author Organization [facility] Healthcare Address [address] [place] [address] Care Team Providers Care Curing Bin Operator Name Role Phone Justa Wilkinson NP Primary Care Provider [phone] Reason for Visit * Reason Comments Fever Gordo Feverish in the middle of night, stomach pains since Saturday, was drinking the drink for colonoscopy vomited, and stomach pains then started Saturday, still having burning pains Encounter Details Date Type Department Care Team (Late st Contact Info) Description 08/11/2025 11:45 AM FORENSIC DNA ANALYST Office Visit [facility] at [address] [address] Avila Granado NP [address] [place] [address] [address] [place] [address] Right upper quadrant abdominal pain [...] Comments Blood Pressure 109/74 08/11/2025 11:07 AM FORENSIC DNA ANALYST Pulse 84 08/11/2025 11:07 AM FORENSIC DNA ANALYST Temperature 36.4 C (97.6 F) 08/11/2025 11:07 AM FORENSIC DNA ANALYST Respiratory Rate 18 08/11/2025 11:07 AM FORENSIC DNA ANALYST Oxygen Saturation 98% 08/11/2025 11:07 AM FORENSIC DNA ANALYST Inhaled Oxygen Concentration - - Weight 101.4 kg (223 lb 8 oz) 08/11/2025 11:07 A M FORENSIC DNA ANALYST Height 160 cm (5' 3) 08/11/2025 11:07 AM FORENSIC DNA ANALYST Body Mass Index 39.59 08/11/2025 11:07 AM FORENSIC DNA ANALYST documented in this encounter Functional Status documented as of this encounter Progress Notes * Avila Granado NP - 08/11/2025 11:45 AM CST Images from the original note were not included. Subjective/Objective Patient ID: Hedy Luna is a 40 y.o. female. This patient has verbally consented to recording this visit in order to utilize AI technology in generating this note. Chief Complaint Fever (Gordo Feverish in the middle of night, stomach [...] office note has been partially dictated using [employer] software, and as a result portions of the record may have been created with this software. Occasional wrong-word or '[id number]' substitutions may have occurred due to the inherent limitations of voice recognition software. Read the chartcarefully and recognize, using context, where substitutions have occurred. Cosigned by Micky Christian MD at 08/11/2025 12:11 PM FORENSIC DNA ANALYST NSIC DNA ANALYST NSIC DNA ANALYST documented in this encounter Plan of Treatment Upcoming Encounters Date Type Department Care Team (Late st Contact Info) Description 08/24/2025 8:30 AM FORENSIC DNA ANALYST Hospital Encounter [address] [address] Taylor Milligan MD [address] [facility] [address] [place] [address] 08/24/2025 8:30 AM FORENSIC DNA ANALYST Anesthesia Event [address] [address] Bahman Nieves, ROBERT [address] [place] [address] 08/24/2025 8:30 AM FORENSIC DNA ANALYST - 08/24/2025 9:15 AM FORENSIC DNA ANALYST Surgery [address] [address] Taylor Milligan MD 201 [facility] [address] [place] [address] COLONOSCOPY Scheduled Procedures Name Priority Associated Diagnoses Date/Ti me COLONOSCOPY Polyp of colon, unspecified part of colon, unspecified type 08/24/2025 8:30 AM FORENSIC DNA ANALYST documented as of this encounter Procedures Procedure Name Priority Date/Time Associated Diagnosis Comments POC INFLUENZA A/B, COVID-19 ANTIGEN Routine 08/11/2025 11:38 AM FORENSIC DNA ANALYST Right upper quadrant abdominal pain POCT RAPID STREP Routine 08/11/2025 11:2 6 AM FORENSIC DNA ANALYST Right upper quadrant abdominal pain documented in this encounter Results * POC Influenza A/B, COVID-19 antigen (08/11/2025 11:38 AM FORENSIC DNA ANALYST) Influenza A Ag, POC Negative Negative [facility] Influenza B Ag, POC Negative Negative [facility] COVID-19 Ag POC Presumptive Negative Presumptive Negative, Invalid [facility] Nasal 08/11/2025 11:3 8 AM FORENSIC DNA ANALYST us Avila Granado NP POINT OF CARE TEST ORDERABLES F inal Result Performing Organization Address City/State/[facility] Co de Phone Number [facility] [address] [place] [address] * POCT rapid strep A (08/11/2025 11:26 AM FORENSIC DNA ANALYST) Rapid Strep A, POC Negative Negative Swab 08/11/2025 11:2 6 AM FORENSIC DNA ANALYST us Avila Granado NP POINT OF CARE [...] type documented in this encounter Care Teams Curing Bin Operator Relationship Specialty Start Date End Date Justa Wilkinson NP [facility] [phone] PCP - General Family Medicine 06/25/25 documented as of this encounter
[2025-08-11 12:16] VITALS: BP 133/96; PULSE 97; RESP 14; TEMP 36.6; O2SAT 99
--- OUTSIDE RECORDS SUMMARY | 2025-08-11 12:30 | XMS_ITS | Clinical Summary ---
Author Organization [facility] Address [address] [place] [address] Phone Care Team Providers Care Membership Director Name Role Phone Unavailable Primary Care Provider Unavailabl e Social History Tobacco Use Types Packs/Day Years Used Date Smoking Tobacco: Never Assessed Comments Unknown Sex and Gender Information Value Date Recorded Sex Assigned at Not on file Legal Sex Female 11:37 AM CDT Gender Identity Not on file Sexual Orientation Not on file Plan of Treatment Health Maintenance Due Date Last Done Comments HEPATITIS B VACCINES (1 of 3 - 19+ 3-dose series) 02/12/2004 HPV/Cotest (21-29) 2006 HPV VACCINES (1 - 3-dose SCDM series) 02/12/2012 CERVICAL CANCER SCREENING 2015 HPV/Cotest (30-65) 2015 PAP SMEAR 2015 BREAST CANCER SCREENING 2025 INFLUENZA VACCINE (#1) 2025 08/21/2019 DTAP/TDAP/TD VACCINES (3 - Td or Tdap) 12/14/2027, 12/03/2017 Insurance [employer] [id number] Member Subscriber Plan / Payer (Ef fective 2022-Present) Name:Hedy Luna Relation to Subscriber:Spouse Name:MARTIN LUNA Date of :1988 (Home) Address: [address] [place] [address] Payer ID:[id number] (NAIC) Type:HMO Address: [facility] [id number] [place] [id number]
--- OUTSIDE RECORDS SUMMARY | 2025-08-11 12:30 | XMS_ITS | Encounter Summary ---
Author Organization [facility] Address [facility] [place] [address] Care Team Providers Care Hoeing Row Boss Name Role Phone Sahra Franco MD Primary Care Provider Unavailab Sahra Valencia MD Primary Care Provider Unavailab She Joyner APNP Primary Care Provider [phone] Yoon Polk PA-C Primary Care Provider [phone] Mehnaz Gunter MD Primary Care Provider + Justa Wilkinson NP Primary Care Provider [phone] Encounter Details Date Type Department Care Team (Late st Contact Info) Description 12/11/2018 [employer] Message [facility] Family & Internal Medicine [address] [address] Sabrina Phan NP RE: Question [...] Sex Assigned at Female 10/23/2018 12:24 PM SECURITY PATROL OFFICER Legal Sex Female 8:10 PM CDT Gender Identity Female 10/23/2018 12:24 PM SECURITY PATROL OFFICER Sexual Orientation Straight 08/04/2018 3: 02 PM SECURITY PATROL OFFICER 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 Not on file Not on file Not on file documented as of this encounter Plan of Treatment Upcoming Encounters Date Type Department Care Team (Late st Contact Info) Description 09/07/2025 8:00 AM SECURITY PATROL OFFICER Appointment [facility] [address] [place], [place] [phone] Ab Mcnamara MD [address] [place] [phone] 09/07/2025 8:30 AM SECURITY PATROL OFFICER Appointment [facility] [address] [place], [place] [id number] Ab Mcnamara MD [address] [place] [phone] documented as of this encounter Visit Diagnoses Not on filedocumented in this encounter Care Teams Hoeing Row Boss Relationship Specialty Start Date End Date Sahra Franco MD PCP - General INTERNAL MEDICINE 08/04/18 06/27/19 Sahra Franco MD PCP - General INTERNAL MEDICINE 06/28/19 05/18/20 She Aceves APNP [address] [place] [phone] PCP - General Nurse Practitioner Family 05/19/2004/17 Yoon Polk PA-C [address] [address] PCP - General PHYSICIAN GUM SCORING MACHINE OPERATOR 05/06/23 07/12/24 Mehnaz Gunter MD [address] [address] PCP - General FAMILY PRACTICE 07/13/24 06/30/25 Justa Wilkinson NP [facility] [address] [address] PCP - General 07/01/25 documented as of this encounter
--- OUTSIDE RECORDS SUMMARY | 2025-08-11 12:30 | XMS_ITS | Clinical Summary ---
Author Organization [facility] Address [facility] [place] [address] Care Team Providers Care Assembler Dc Field Yoke Name Role Phone Justa Wilkinson NP Primary Care Provider [phone] Allergies No known active allergies Medications albuterol sulfate HFA 108 (90 Base) MCG/ACT inhaler every 4 (four) hours as needed. 4 Active fluticasone-salm eterol (WIXELA INHUB) 250-50 MCG/ACT inhalerIndicatio ns:Mild persistent asthma with acute exacerbation (HHS/HCC) Inhale 1 puff into the lungs 2 (two) times daily. 60 each 4 Active predniSONE (DELTASONE) 20 MG tablet 5 Active montelukast (SINGULAIR) 10 MG tabletIndication s:Seasonal allergic rhinitis due to pollen Take 1 tablet (10 mg total) by mouth nightly at bedtime. 90 tablet 3 4 025 Additional Information Patient not taking.Reported on 05/11/2025 Active Problems Problem Noted Date Diagnosed Date Allergic rhinitis 07/21/2024 Overview (07/21/2024): Takes flonase. Symptoms typically worsen seasonally. Assessment & Plan (07/21/2024 12:[address] TESTER): Not controlled. Trial Singulair. Insomnia 07/21/2024 Overview (07/21/2024): She has tried melatonin without improvement. She is currently managing using Tylenol PM regularly. Assessment & Plan (07/21/2024 12:[address] TESTER): Discussed option of trazodone. For now she will continue with the Benadryl. High risk for colon cancer 01/24/2018 Overview (07/21/2024): Mother has precancerous polyps. Sees Dr. Shanks. Had a colonoscopy in the past and needs one every 5 years. 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 Encounters Date Type Department Care Team Description 07/01/2025 4:35 PM CDT - 07/01/2025 8:27 PM CDT Emergency [facility] Emergency Room [id number] [place] [id number] Freedom Nguyễn MD Palmer, Aunaly E, MD Chest Pain Discharge Disposition: Home or Self Care (Routine Discharge) 07/01/2025 Travel 06/09/2025 MyChart Message Enc [address] [address] Mehnaz Kramer MD Referral Request 06/08/2025 7:45 PM CDT - 06/08/2025 10:03 PM CDT Emergency [facility] Emergency Room [address] [place] [address] Duncan May MD Abdominal Pain Discharge Disposition: Home or Self Care (Routine Discharge) 06/08/2025 Travel 05/11/2025 9:50 AM CDT Office Visit [address] [address] Mehnaz Kramer MD Urinary Symptoms (Went to ER on the Apr. Was told no UTI. did UA and culture. Was told she does have a kidney stone. 3mm in size. Still having pressure when she urinates, freq urination. Urine is clear. //Also, went to urgent care last night due to swelling lip and chin. 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 Not on file Not on file Not on file Last Filed Vital Signs Vital Sign Reading Time Taken Comments Blood Pressure 109/73 07/01/2025 7:50 PM CDT Pulse 102 07/01/2025 7:50 PM CDT Temperature 36.7 C (98.1 F) 07/01/2025 7:50 PM CDT Respiratory Rate 20 07/01/2025 7:50 PM CDT Oxygen Saturation 96% 07/01/2025 7:50 PM CDT Inhaled Oxygen Concentration - - Weight 99.3 kg (218 lb 14.7 oz) 07/01/2025 4:41 PM CDT Height 160 cm (5' 3) 07/01/2025 4:41 PM CDT Body Mass Index 38.78 07/01/2025 4:41 PM CDT Plan of Treatment Upcoming Encounters Date Type Department Care Team (Late st Contact Info) Description 09/07/2025 8:[address]STER Appointment [facility] [place] [address] Ab Mcnamara MD [facility] [address] [phone] 09/07/2025 8:[address] TESTER Appointment [facility] [address] Ab Mcnamara MD [facility] [address] [phone] Health Maintenance Due Date Last Done Comments Cervical Cancer Screening Pap Smear (Age 30 to 64) Every 3 Years 1985 Hepatitis C 2003 Hepatitis B Vaccines (1 of 3 - 19+ 3-dose series) 02/12/2004 Pneumococcal Vaccine: Pediatrics (0 to 5 Years) and At-Risk Patients (6 to 49 Years) (1 of 2 - PCV) 02/12/2004 HPV Vaccines (1 - 3-dose SCDM series) 02/12/2012 Cervical Cancer Screening Pap with HPV Testing (Age 30 to 64) Every 5 Years 07/22/2022 07/22/2017 Cervical Cancer Screening with HPV 07/22/2022 COVID-19 Vaccine ( season) 2025 03/01/2022, 05/09/2021, 04/18/2021 Annual Physical 07/21/2025 07/21/2024 Mammogram Screening 01/05/2027 01/05/2025 DTaP, Tdap and Td Vaccines (3 - Td or Tdap) 12/14/2027 12/13/2017, 12/03/2017 PHQ-2 (Physician [place]) Completed 12/21/2024 Influenza Adult Completed 06/25/2025, 01/2024, 08/07/2022, Additional history exists Hepatitis A Vaccines Aged Out No long er eligible based on patient's age to complete this topic Meningococcal B Vaccine Aged Out No l onger eligible based on patient's age to complete this topic Meningococcal Vaccine Aged Out No davis reina eligible based on patient's age to complete this topic RSV Immunizations Under 20 Months Aged Out No longer eligible based on patient's age to complete this topic Procedures Procedure Name Priority Date/Time Associated Diagnosis Comments HC TROPONIN QN STAT 07/01/2025 7:48 PM CDT CTA CHEST PE PROTOCOL STAT 07/01/2025 5:52 PM CDT XR CHEST PORTABLE STAT 07/01/2025 5:1 6 PM CDT PRO-BRAIN NATRIURETIC PEPTIDE STAT 07/01/2025 5:05 PM CDT HC TROPONIN QN STAT 07/01/2025 5:05 PM CDT HC COMPREHENSIVE METABOL PANEL STAT 07/01/2025 5:05 PM CDT HC CBC AUTO W/AUTO DIFF STAT 07/01/2025 5:05 PM CDT ECG 12-LEAD STAT 07/01/2025 4:[address] ABD+PEL W CON STAT 06/08/2025 9:08 PM CDT HC URINE TEST STAT 06/08/2025 8:28 PM CDT HC URINALYSIS AUTO W/O MICRO STAT 06/08/2025 8:28 PM CDT HC HCG QL STAT 06/08/2025 8:01 PM CDT HC LIPASE STAT 06/08/2025 8:01 PM CDT HC COMPREHENSIVE METABOL PANEL STAT 06/08/2025 8:01 PM CDT HC CBC AUTO W/AUTO DIFF STAT 06/08/2025 8:01 PM CDT URINALYSIS AUTO DIP Routine 05/11/2025 Urinary symptom or sign MG DIAG W NELIA BILAT DIGI Routine 01/05/2025 1:33 PM CDT Subareolar mass of left breast HPV MRNA E6/E7 Routine 07/22/2017 5:[address]STER from Last 3 Months or Most Recently Relevant to Health Maintenance Results * TROPONIN, QUANT (07/01/2025 7:48 PM CDT) Only the most recent of2 resultswithin the time period is included. TROPONIN I HIGH SENSITIVITY <4 0 - 50 ng/L 07/01/2025 8:20 PM CDT [facility] Comment: HIGH DOSES OF BIOTIN, TROPONIN-SPECIFIC AUTOANTIBODIES, AND ANTIBODY THERAPY CONTAINING HAMA MAY INTERFERE WITH THIS TEST RESULT. CORRELATION TO CLINICAL HISTORY AND PRESENTATION RECOMMENDED. 07/01/2025 7:48 PM CDT us Freedom Nguyễn MD LABORATORY Final Result [facility] [address] [place] [address], [place] [phone] * CTA CHEST PE PROTOCOL (07/01/2025 5:52 PM CDT) Anatomical Region Laterality Modality Chest Computed Tomogra phy 07/01/2025 6:13 PM CDT Impressions 07/01/2025 6:18 PM CDT IMPRESSION: 1. No pulmonary embolism or acute cardiopulmonary abnormality. Referred By: Interpreted By: Alan Torres MD, 07/01/2025 6:13 PM Narrative 07/01/2025 6:18 PM CDT [address] [place] [address] REASON FOR EXAM: Chest pain DISCUSSION: Comparison: None. Technique: Volumetric multidetector CT images of the chest following the administration of IV contrast. MIP images in the coronal and sagittal planes were also reviewed. CT dose reduction technique was utilized. Findings: Technically adequate exam. No filling defect is seen in the central pulmonary vasculature to suggest pulmonary embolism. No coronary calcifications. The heart is normal in size. No pleural or pericardial effusion. No thoracic lymphadenopathy. The thyroid and esophagus are normal. The trachea and central airways are patent. The lungs are clear. Left lower lobe calcified granuloma. Limited evaluation the upper abdomen demonstrates a cholecystectomy. No acute osseous abnormality is seen. Procedure Note Alan Torres, DO - 07/01/2025 [facility] [address] [facility] [place] [address] REASON FOR EXAM: Chest pain DISCUSSION: Comparison: None. Technique: Volumetric multidetector CT images of the chest following theadministration of IV contrast. MIP images in the coronal and sagittalplanes were also reviewed. CT dose reduction technique was utilized. Findings: Technically adequate exam. No filling defect is seen in the centralpulmonary vasculature to suggest pulmonary embolism. No coronarycalcifications. The heart is normal in size. No pleural or pericardial effusion. Nothoracic lymphadenopathy. The thyroid and esophagus are normal. The trachea and central airways are patent. The lungs are clear. Leftlower lobe calcified granuloma. Limited evaluation the upper abdomen demonstrates a cholecystectomy. No acute osseous abnormality is seen. IMPRESSION: 1. No pulmonary embolism or acute cardiopulmonary abnormality. Referred By: Interpreted By: Alan Torres MD, 07/01/2025 6:13 PM Freedom Nguyễn MD CT Final Result * XR CHEST PORTABLE (07/01/2025 5:16 PM CDT) Anatomical Region Laterality Modality Chest Radiographic Indira ging 07/01/2025 5:23 PM CDT Impressions 07/01/2025 5:35 PM CDT Impression: No acute findings. Referred By: Interpreted By: Daryn Prasad MD, 07/01/2025 5:23 PM Narrative 07/01/2025 5:[address] [facility] [address] [facility] [place] [address] Examination: Chest 1 view portable History: Chest pain DATE/TIME: 07/01/2025 5:13 PM Comparison: 07/13/2029 Technique: AP upright portable view of the chest was obtained. Findings: Heart size, mediastinal contours and pulmonary vasculature are within normal limits. No pulmonary consolidation, pleural effusion or pneumothorax. No acute osseous abnormality. Procedure Note Daryn Prasad MD - 07/01/2025 [facility] [address] [facility] [place] [address] Examination: Chest 1 view portable History: Chest pain DATE/TIME: 07/01/2025 5:13 PM Comparison: 07/13/2029 Technique: AP upright portable view of the chest was obtained. Findings: Heart size, mediastinal contours and pulmonary vasculature arewithin normal limits. No pulmonary consolidation, pleural effusion orpneumothorax. No acute osseous abnormality. Impression: No acute findings. Referred By: Interpreted By: Daryn Prasad MD, 07/01/2025 5:23 PM us Freedom Nguyễn MD GENERAL IMAGING Final Result * PRO-BRAIN NATRIURETIC PEPTIDE (07/01/2025 5:05 PM CDT) PRO-B TYPE NATRIURETIC PEPTIDE 9 <125 PG/ML 07/01/2025 5:37 PM CDT [facility] Comment: CUT POINTS ESTABLISHED BY INTERNATIONAL [employer] ON NT PROBNP (ICON) STUDY (2006). AGE INDEPENDENT: <300 PG/ML HAS A 99% NEGATIVE PREDICTIVE VALUE FOR EXCLUDING ACUTE CHF <50 YEARS: >450 PG/ML IS CONSISTENT WITH ACUTE CHF 50-75 YEARS: >900 PG/ML IS CONSISTENT WITH ACUTE CHF >75 YEARS: >1800 PG/ML IS CONSISTENT WITH ACUTE CHF IN PATIENTS WITH RENAL INSUFFICIENCY (GFR <60), >1200 PG/ML YIELDS A DIAGNOSTIC SENSITIVITY AND SPECIFICITY OF 89% AND 72% FOR ACUTE CHF. 07/01/2025 5:05 PM CDT us Freedom Nguyễn MD LABORATORY Final Result [facility] [address] [place] [address], [place] [phone] * (ABNORMAL) COMPREHENSIVE METABOLIC PANEL (07/01/2025 5:05 PM CDT) Only the most recent of2 resultswithin the time period is included. GLUCOSE 92 70 - 99 MG/DL 07/01/2025 5:37 PM CDT [facility] BUN 10 7 - 18 MG/DL 07/01/2025 5:37 PM CDT [facility] CREATININE S/P/B 0.97 0.55 - 1.02 MG/DL 07/01/2025 5:37 PM CDT [facility] SODIUM S/P/B 137 136 - 145 MMOL/L 07/01/2025 5:37 PM CDT [facility] POTASSIUM S/P/B 3.8 3.5 - 5.1 MMOL/L 07/01/2025 5:37 PM [facility] CHLORIDE S/P/B 101 100 - 108 MMOL/L 07/01/2025 5:37 PM [facility] CO2 26.6 21 - 32 MMOL/L 07/01/2025 5:37 PM T [facility] CALCIUM S/P/B 8.8 8.5 - 10.1 MG/DL 07/01/2025 5:37 PM [facility] BILIRUBIN TOTAL S/P/B 0.2 0.2 - 1.2 MG/DL 07/01/2025 5:37 PM [facility] TOTAL PROTEIN S/P/B 7.4 6.4 - 8.2 G/DL 07/01/2025 5:37 PM [facility] ALBUMIN S/P/B 3.7 3.4 - 5.0 G/DL 07/01/2025 5:37 PM [facility] AST 12(L) 15 - 37 U/L 07/01/2025 5:37 PM [facility] ALT 22 14 - 55 U/L 07/01/2025 5:37 PM [facility] ALKALINE PHOSPHATASE S/P/B 77 50 - 136 U/L 07/01/2025 5:37 PM [facility] ANION GAP 9.4 5 - 15 MMOL/L 07/01/2025 5:37 PM [facility] BUN CREATININE RATIO 10.3 6 - 26 07/01/2025 5:37 PM [facility] A/G RATIO 1.0 1.0 - 2.0 RATIO 07/01/2025 5:37 PM CDT [facility] GFR ESTIMATE 76(L) >90 ML/MIN/1.7 3 M2 07/01/2025 5:37 PM CDT [facility] Comment: NOTE: eGFR is not calculated for patients <18 years of age. This is an estimated GFR calculation using the new CKD EPI creatinine equation without race and so does not require a correction factor for race. This estimated GFR should not be used for calculating drug doses. 07/01/2025 5:05 PM CDT Freedom Nguyễn MD LABORATORY Final Result [facility] [address] [place] [address], * (ABNORMAL) CBC W/DIFF AUTOMATED (07/01/2025 5:05 PM CDT) Only the most recent of2 resultswithin the time period is included. WBC 14.52(H) 4.4 - 11.0 x10'3/uL 07/01/2025 5:15 PM CDT [facility] RBC 4.50 4.50 - 5.10 x10'6/uL 07/01/2025 5:15 PM CDT [facility] HGB 12.4 12.3 - 15.3 G/DL 07/01/2025 5:15 PM CDT [facility] HCT 38.1 35.9 - 44.6 % 07/01/2025 5:15 PM CDT [facility] MCV 84.7 80.0 - 96.0 FL 07/01/2025 5:15 PM CDT [facility] MCH 27.6 25.3 - 30.9 PG 07/01/2025 5:15 PM CDT [facility] MCHC 32.5 31.0 - 34.1 G/DL 07/01/2025 5:15 PM CDT [facility] RDW 15.1 12.4 - 15.1 % 07/01/2025 5:15 PM CDT [facility] PLT 280 151 - 353 x10'3/uL 07/01/2025 5:15 PM CDT [facility] MPV 10.2 9.6 - 12.0 FL 07/01/2025 5:15 PM CDT [facility] RBC MORPHOLOGY NORMAL 07/01/2025 5:15 PM CDT [facility] PLT MORPH. NORMAL 07/01/2025 5:15 PM CDT [facility] WBC MORPHOLOGY NORMAL 07/01/2025 5:15 PM CDT [facility] LYMPHOCYTES % 29.6 15.8 - 45.0 % 07/01/2025 5:15 PM CDT [facility] NEUTROPHILS % 61.7 42.1 - 71.9 % 07/01/2025 5:15 PM CDT [facility] MONOCYTES % 5.6(L) 5.7 - 12.5 % 07/01/2025 5:15 PM CDT [facility] EOSINOPHILS 2.3 0.0 - 5.6 % 07/01/2025 5:15 PM CDT [facility] BASOPHILS 0.2 0.0 - 1.3 % 07/01/2025 5:15 PM CDT [facility] ABS. NEUTROPHILS 8.96(H) 1.40 - 6.00 x10'3/uL 07/01/2025 5:15 PM CDT [facility] IMMATURE GRANS % 0.6(H) 0.0 - 0.5 % 07/01/2025 5:15 PM CDT [facility] ABS. LYMPHOCYTES 4.30 0.80 - 4.70 x10'3/uL 07/01/2025 5:15 PM CDT [facility] 07/01/2025 5:05 PM CDT Freedom Nguyễn MD LABORATORY Final Result [facility] [address] [place] [address], * ECG 12 lead (07/01/2025 4:41 PM CDT) ECG QT 344 [facility] RAD ECG QTC 437 [facility] RAD 07/01/2025 4:41 PM CDT Narrative [facility] ([facility]) RAD - 07/02/2025 10:32 AM CDT [facility] Test Date: 2025-07-01 Pat Name: URIEL LOFTONDE Department: 85 Room: [place] [address] Gender: Female 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1985 Requested By: FREEDOM NGUYỄN Order Number: [id number] Reading : Nathan De Leon Measurements Intervals [place] Rate: 96 P: 37 VA: 135 QRS: -8 QRSD: 89 T: 9 QT: 344 QTc: 437 Interpretive Statements SINUS RHYTHM Compared to ECG 12/17/2018 22:33:20 No significant changes Procedure Note Nathan De Leon MD - 07/02/2025 [facility] Test Date: 2025-07-01 Pat Name: URIEL LOFTONDE Department: 85 Room: [place] [address] Gender: Female 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1985 Requested By: FREEDOM NGUYỄN Order Number: [id number] Reading : Nathan De Leon Measurements Intervals [place] Rate: 96 P: 37 VA: 135 QRS: -8 QRSD: 89 T: 9 QT: 344 QTc: 437 Interpretive Statements SINUS RHYTHM Compared to ECG 12/17/2018 22:33:20 No significant changes us Freedom Nguyễn MD ECG ORDERABLES Final Result [facility] ([facility]) RAD * CT ABD+PEL W IV CON ONLY (06/08/2025 9:08 PM CDT) Anatomical Region Laterality Modality Abdomen Computed Tomogra phy 06/08/2025 9:33 PM CDT Impressions 06/08/2025 9:38 PM CDT Impression: No acute abnormality identified within the abdomen or pelvis. Ordered By: DUNCAN MAY Interpreted By: Mando Murcia MD, 06/08/2025 9:33 PM Narrative 06/08/2025 9:[address] [facility] [address] [place] [address] Examination: CT abdomen and pelvis with IV contrast. Clinical Information: Left-sided abdominal pain. History of diverticulitis. Comparison:CT 10/26/2018. Technique: IV contrast: 80 mL Isovue 370. Oral contrast: None. Technical comments: Standard technique. Dose reduction: This CT exam was performed using one or more of the following dose reduction techniques: Automated exposure control, adjustment of the mA and/or kV according to patient size, and/or use of iterative reconstruction technique. Findings: LOWER CHEST Heart is normal in size. Lung bases are clear. No pleural or pericardial effusions. UPPER ABDOMEN Liver and bile ducts: No focal liver lesion. Portal vein and hepatic veins are patent. No biliary dilatation. Gallbladder: Absent. Pancreas: Unremarkable. Spleen: Normal. RETROPERITONEUM Adrenals: Normal. Kidneys: Enhance symmetrically with no solid mass or hydronephrosis. Lymph nodes: No lymphadenopathy in the abdomen or pelvis. BOWEL AND PERITONEUM Bowel: Normal in caliber and wall thickness. The appendix is normal. No acute inflammatory process. Free air or fluid: None. VASCULATURE The abdominal aorta is normal in caliber. PELVIS Right ovarian cyst is noted, similar to prior CT from October 2018. The urinary bladder is unremarkable. BONES/SOFT TISSUES No significant lesion. Procedure Note Mando Murcia MD - 06/08/2025 [facility] [address] [place] [address] Examination: CT abdomen and pelvis with IV contrast. Clinical Information: Left-sided abdominal pain. History ofdiverticulitis. Comparison:CT 10/26/2018. Technique: IV contrast: 80 mL Isovue 370. Oral contrast: None. Technical comments: Standard technique. Dose reduction: This CT exam was performed using one or more of thefollowing dose reduction techniques: Automated exposure control,adjustment of the mA and/or kV according to patient size, and/or use ofiterative reconstruction technique. Findings: LOWER CHEST Heart is normal in size. Lung bases are clear. No pleural or pericardialeffusions. UPPER ABDOMEN Liver and bile ducts: No focal liver lesion. Portal vein and hepaticveins are patent. No biliary dilatation. Gallbladder: Absent. Pancreas: Unremarkable. Spleen: Normal. RETROPERITONEUM Adrenals: Normal. Kidneys: Enhance symmetrically with no solid mass or hydronephrosis. Lymph nodes: No lymphadenopathy in the abdomen or pelvis. BOWEL AND PERITONEUM Bowel: Normal in caliber and wall thickness. The appendix is normal. Noacute inflammatory process. Free air or fluid: None. VASCULATURE The abdominal aorta is normal in caliber. PELVIS Right ovarian cyst is noted, similar to prior CT from October 2018. Theurinary bladder is unremarkable. BONES/SOFT TISSUES No significant lesion. Impression: No acute abnormality identified within the abdomen or pelvis. Ordered By: DUNCAN MAY Interpreted By: Mando Murcai MD, 06/08/2025 9:33 PM Duncan May MD CT Final Resu lt * URINALYSIS (06/08/2025 8:28 PM CDT) COLOR (U) YELLOW 06/08/2025 8:44 PM CDT [facility] TRANSPARENCY CLEAR 06/08/2025 8:44 PM CDT [facility] SPECIFIC GRAVITY (U) 1.020 1.000 - 1.030 06/08/2025 8:44 PM CDT [facility] U PH 7.5 5.0 - 9.0 06/08/2025 8:44 PM CDT [facility] LEUKOCYTES (U) NEGATIVE NEGATIVE 06/08/2025 8:44 PM CDT [facility] NITRITES NEGATIVE NEGATIVE 06/08/2025 8:44 PM CDT [facility] PROTEIN RANDOM (U) NEGATIVE NEGATIVE 06/08/2025 8:44 PM CDT [facility] GLUCOSE (U) NEGATIVE NEGATIVE 06/08/2025 8:44 PM CDT [facility] KETONES MG/DL (U) NEGATIVE NEGATIVE 06/08/2025 8:44 PM CDT [facility] BILIRUBIN (U) NEGATIVE NEGATIVE 06/08/2025 8:44 PM CDT [facility] BLOOD (U) NEGATIVE NEGATIVE 06/08/2025 8:44 PM CDT [facility] URINE SPECIMEN OBTAINED BY CLEAN CATCH PROCEDURE / Unknown 06/08/2025 8:28 PM CDT us Duncan May MD URINE ORDERABLES Final Res ult [facility] [address] [place] [address], * TEST URINE (06/08/2025 8:28 PM CDT) URINE HCG TEST NEGATIVE NEGATIVE 06/08/2025 8:41 PM CDT [facility] Comment: VERY DILUTE URINE SPECIMENS MAY NOT CONTAIN ASSISTANT BASKETBALL COACH LEVELS OF HCG. IF IS STILL SUSPECTED, A SERUM HCG TEST IS RECOMMENDED. URINE SPECIMEN FROM [facility] / Unknown 06/08/2025 8:28 PM CDT us Duncan May MD URINE ORDERABLES Final Res ult Performing Organization Address [facility] Co de Phone Number [facility] [address] [place] [address], [place] [phone] * Qualitative HCG (06/08/2025 8:01 PM CDT) PREG SCREEN-SERUM NEGATIVE NEGATIVE 06/08/2025 8:35 PM CDT [facility] 06/08/2025 8:01 PM CDT us Duncan May MD LABORATORY Final Resu lt Performing Organization Address [facility] de Phone Number [facility] [address] [place] [address], [place] [phone] * LIPASE (06/08/2025 8:01 PM CDT) Pathologist [facility] LIPASE 36 16 - 77 UNITS/L 06/08/2025 8:40 PM CDT [facility] 06/08/2025 8:01 PM CDT us Duncan May MD LABORATORY Final Resu lt Performing Organization Address [facility] de Phone Number [facility] [address] [place] [address], [place] [phone] * (ABNORMAL) URINALYSIS AUTO DIP (05/11/2025) COLOR (U) SOPHIA(A) YELLOW [address], [facility] TRANSPARENCY CLOUDY(A) CLEAR [address], [facility] GLUCOSE (U) NEGATIVE NEGATIVE MG/DL [address], [facility] BILIRUBIN (U) NEGATIVE NEGATIVE [address], [facility] KETONES MG/DL (U) NEGATIVE NEGATIVE MG/DL [address], [facility] SPECIFIC GRAVITY (U) >=1.030 1.001 - 1.035 [address], [facility] BLOOD (U) NEGATIVE NEGATIVE [address], [facility] U PH 5.5 5.0 - 9.0 [address], [facility] PROTEIN (U) NEGATIVE NEGATIVE mg/dL [address], [facility] UROBILINOGEN 0.2 0.2 - 1.0 EU/dL = mg/dL [address], [facility] NITRITES NEGATIVE NEGATIVE MG/DL [address], [facility] LEUKOCYTES (U) NEGATIVE NEGATIVE [address], [facility] URINE SPECIMEN FROM [facility] / Unknown 05/11/2025 us Mehnaz Kramer MD URINE ORDERABLES Final R esult [address], [facility] [address] [place] [address], [place] [phone] * MG DIAG W NELIA BILAT DIGI (01/05/2025 1:33 PM CDT) Anatomical Region Laterality [...] 1:58 PM Narrative 01/05/2025 2:13 PM CDT [facility] [address] [place] [address] Examination: Diagnostic bilateral mammogram and bilateral breast ultrasound [id number], [id number] Exam Date/Time: 01/05/2025 1:42 PM Reason For [...] * HPV MRNA E6/E7 (07/22/2017 5:[address]STER) HPV MRNA E6/E7 Not Detected NOT DETECTED 07/31/2017 3:[address]STER [facility] LILIAN GLASS Comment: This test was performed using the APTIMA(R) HPV Assay([employer]This assay detects E6/E7 viral messenger RNA (mRNA)from 14 high-risk HPV types (16,18,31,33,35,39,45,51,52,56,58,59,66,68).For additional information please refer to:http://education.[employer].[facility]/faq/XVC826i4(This link is being provided for informational/educational purposes only.)Test Performed by Lawrence Vernon,[facility],[address] [place], [place] [address]Yqoeogppawan Ordoñez M.D., Ph.D., Director of [phone], [facility] [id number] FLUID SPECIMEN / Unknown 07/22/2017 5:[address]STER 07/22/2017 5:[address] TESTER us Generic Conversion Md DRAPER PATHOLOGY/CYTOLOGY CARLOS GOODMAN Final Result Exiles [facility] [address] [place], [place] , [place] [phone] from Last 3 Months or Most Recently Relevant to Health Maintenance Insurance [facility] Care Teams Assembler Dc Field Yoke Relationship Specialty Start Date End Date Justa Wilkisnon NP [facility] [address] PCP - General 07/01/25
--- OUTSIDE RECORDS SUMMARY | 2025-08-11 12:30 | XMS_ITS | Encounter Summary ---
Author Organization [facility] Address [facility] [place] [address] Care Team Providers Care Mechanical Maintenance Worker Name Role Phone Sahra Franco MD Primary Care Provider UnavailSahra Cohn MD Primary Care Provider Unavailab She Joyner APNP Primary Care Provider [phone] Yoon Polk PA-C Primary Care Provider [phone] Mehnaz Gunter MD Primary Care Provider + Justa Wilkinson CHAIRMAN AND CHIEF EXECUTIVE OFFICER Primary Care Provider [phone] Encounter Details Date Type Department Care Team (Late st Contact Info) Description 12/18/2018 [employer] Message [facility] Family & Internal Medicine [address] [address] Sabrina Phan NP Referral Request [...] Sex Assigned at Female 10/23/2018 12:24 PM MOBILE HOME INSTALLER Legal Sex Female 8:10 PM CDT Gender Identity Female 10/23/2018 12:24 PM MOBILE HOME INSTALLER Sexual Orientation Straight 08/04/2018 3: 02 PM MOBILE HOME INSTALLER Occupation 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 Not on file Not on file Not on file documented as of this encounter Progress Notes * Sabrina Phan NP - 12/18/2018 4:52 PM CDT I spoke to Uriel on the phone today, offered PT but [...] st Contact Info) Description 09/07/2025 8:00 AM MOBILE HOME INSTALLER Appointment [facility] [place], [place] [address] Ab Mcnamara MD [address] [place] [address] 09/07/2025 8:30 AM MOBILE HOME INSTALLER Appointment [facility] [place], [place] [address] Ab Mcnamara MD [address] [place] [phone] documented as of this encounter Visit Diagnoses Not on filedocumented in this encounter Care Teams Mechanical Maintenance Worker Relationship Specialty Start Date End Date Sahra Franco MD PCP - General INTERNAL MEDICINE 08/04/18 06/27/19 Sahra Franco MD PCP - General INTERNAL MEDICINE 06/28/19 05/18/20 She Aceves APNP [id number] [address] PCP - General Nurse Practitioner Family 05/19/2004/17 Yoon Polk, MORISC [address] [address] PCP - General PHYSICIAN WOOD PROCESSING WORKER 05/06/23 07/12/24 Mehnaz Gunter MD [address] [address] PCP - General FAMILY PRACTICE 07/13/24 06/30/25 Justa Wilkinson NP [address] [place] [address] PCP - General 07/01/25 documented as of this encounter
--- OUTSIDE RECORDS SUMMARY | 2025-08-11 12:30 | XMS_ITS | Encounter Summary ---
Author Organization [facility] Address [facility] [place] [address] Care Team Providers Care Balance Wheel Hand Filer Name Role Phone Mehnaz Gunter MD Primary Care Provider + Justa Wilkinson NP Primary Care Provider [phone] Encounter Details Date Type Department Care Team (Late st Contact Info) Description 06/09/2025 Estate Assistt Message Enc [facility] Medical [facility] Family Medicine - [place] [address] [place] [address] Mehnaz Gunter MD [address] [place] [address] Referral Request Social History Tobacco Use Types Packs/Day Years Used Date Smoking Tobacco: Former Cigarettes Q uit: 2017 Passive Smoke Exposure: Never Smokeless Tobacco: Never Alcohol Use Standard Drinks/Week Comments Yes 1 [...] Sex Assigned at Female 10/23/2018 12:24 PM CLOTH TRIMMER HAND Legal Sex Female 8:10 PM CDT Gender Identity Female 10/23/2018 12:24 PM CLOTH TRIMMER HAND Sexual Orientation Straight 08/04/2018 3: 02 PM CLOTH TRIMMER HAND Occupation 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 Not on file Not on file Not on file documented as of this encounter Progress Notes * Mehnaz Gunter MD - 06/17/2025 12:39 PM CDT We haven't actually initiated the workup with some updated labs and typically rheumatology will want to see this. Can she set up an appt so we can dedicate some time to it and get the referral in also? documented in this encounter Plan of Treatment Upcoming Encounters Date Type Department Care Team (Late st Contact Info) Description 09/07/2025 8:00 AM CLOTH TRIMMER HAND Appointment [facility] [place], [place] [address] Ab Mcnamara MD [address] [place], [place] [phone] 09/07/2025 8:30 AM CLOTH TRIMMER HAND Appointment [facility] [place], [place] [address] Ab Mcnamara MD [address] [place] [phone] documented as of this encounter Visit Diagnoses Not on filedocumented in this encounter Care Teams Balance Wheel Hand Filer Relationship Specialty Start Date End Date Mehnaz Gunter MD [address] [place] [address] PCP - General FAMILY PRACTICE 07/13/24 06/30/25 Justa Wilkinson, PACKAGER HAND [facility] [address] PCP - General 07/01/25 documented as of this encounter
--- OUTSIDE RECORDS SUMMARY | 2025-08-11 12:30 | XMS_ITS | Encounter Summary ---
Author Organization [facility] Address [facility]6 [place] [address] Care Team Providers Care Canvas Products Sales Representative Name Role Phone Sahra Franco MD Primary Care Provider [facility] She Joyner APNP Primary Care Provider [phone] Yoon Polk PA-C Primary Care Provider [phone] Mehnaz Gunter MD Primary Care Provider + Justa Wilkinson NP Primary Care Provider [phone] Encounter Details Date Type Department Care Team (Late st Contact Info) Description 01/13/2020 [employer] Message [facility] Patient Accounts [address] [place] [address] [facility] Provider Please contact us Social History Tobacco [...] Sex Assigned at Female 10/23/2018 12:24 PM ADVERTISING AGENT Legal Sex Female 8:10 PM CDT Gender Identity Female 10/23/2018 12:24 PM ADVERTISING AGENT Sexual Orientation Straight 08/04/2018 3: 02 PM ADVERTISING AGENT Occupation 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 Not on file Not on file Not on file documented as of this encounter Plan of Treatment Upcoming Encounters Date Type Department Care Team (Late st Contact Info) Description 09/07/2025 8:00 AM ADVERTISING AGENT Appointment [facility] [address] Ab Mcnamara MD [address] [place] [phone] 09/07/2025 8:30 AM ADVERTISING AGENT Appointment [facility] [place], [place] [address] Ab Mcnamara MD [address] [place] [phone] documented as of this encounter Visit Diagnoses Not on filedocumented in this encounter Care Teams Can[employer] Products Sales Representative Relationship Specialty Start Date End Date Sahra Franco MD PCP - General INTERNAL MEDICINE 06/28/19 05/18/20 She Aceves APNP [address] [address] PCP - General Nurse Practitioner Family 05/19/2004/17 Yoon Polk PA-C [address] [phone] PCP - General PHYSICIAN AVIATION SURVIVAL TECHNICIAN 05/06/23 07/12/24 Mehnaz Gunter MD [address] [place] [address] PCP - General FAMILY PRACTICE 07/13/24 06/30/25 [place] [address] [place] [address] PCP - General 07/01/25 documented as of this encounter
--- OUTSIDE RECORDS SUMMARY | 2025-08-11 12:30 | XMS_ITS | Encounter Summary ---
Author Organization [facility] Address [facility]6 [place] [address] Care Team Providers Care Appraiser Timber Name Role Phone Sahra Franco MD Primary Care Provider [facility] She Joyner Primary Care Provider [phone] Yoon Polk-C Primary Care Provider [phone] Mehnaz Gunter MD Primary Care Provider + Justa Wilkinson NP Primary Care Provider [phone] Encounter Details Date Type Department Care Team (Late st Contact Info) Description 09/30/2019 [employer] Message Enc [facility] Medical Group Family & Internal Medicine [facility] [address] [place] [address] She Aceves APNP [address] [address] RE: RE: Medication Questions Social History Tobacco [...] Sex Assigned at Female 10/23/2018 12:24 PM OFFICE COPY SELECTOR Legal Sex Female 8:10 PM CDT Gender Identity Female 10/23/2018 12:24 PM OFFICE COPY SELECTOR Sexual Orientation Straight 08/04/2018 3: 02 PM OFFICE COPY SELECTOR Occupation Industry Job Start Date Job End [...] using it more than recommended. Thank you. CE COPY SELECTOR documented in this encounter Plan of Treatment Upcoming Encounters Date Type Department Care Team (Late st Contact Info) Description 09/07/2025 8:00 AM OFFICE COPY SELECTOR Appointment [facility] [address] Ab Mcnamara MD [address] [place] [phone] 09/07/2025 8:30 AM OFFICE COPY SELECTOR Appointment [place] [address] Ab Mcnamara MD [address] [place] [phone] documented as of this encounter Visit Diagnoses Not on filedocumented in this encounter Care Teams Appraiser Timber Relationship Specialty Start Date End Date Sahra Franco MD PCP - General INTERNAL MEDICINE 06/28/19 05/18/20 She Aceves APNP [address] [facility] [address] [place] [address] PCP - General Nurse Practitioner Family 05/19/2004/17 Yoon Polk PA-C [address] [address] PCP - General PHYSICIAN LANDSCAPE NURSERYMAN 05/06/23 07/12/24 Mehnaz Gunter MD [address] [place], [place] [address] PCP - General FAMILY PRACTICE 07/13/24 06/30/25 Justa Wilkinson NP [address] [phone] PCP - General 07/01/25 documented as of this encounter
--- OUTSIDE RECORDS SUMMARY | 2025-08-11 12:30 | XMS_ITS | Encounter Summary ---
Author Organization [facility] Address [facility] [place] [address] Care Team Providers Care Human Projectile Name Role Phone Sahra Franco MD Primary Care Provider Unavailab Sahra Valencia MD Primary Care Provider Unavailab She Joyner APNP Primary Care Provider [phone] Yoon Polk PA-C Primary Care Provider [phone] Mehnaz Gunter MD Primary Care Provider + Justa Wilkinson NP Primary Care Provider [phone] Encounter Details Date Type Department Care Team (Late st Contact Info) Description 02/05/2018 Abstract [facility] CONVERSION [address] [place] [address] , Generic Conversion, Social History Tobacco Use Types Packs/Day Years Used Date Smoking Tobacco: Never Assessed Comments Unknown Sex and Gender Information Value Date Recorded Sex Assigned at Female 10/23/2018 12:24 PM HAND BRIM IRONER Legal Sex Female 8:10 PM CDT Gender Identity Female 10/23/2018 12:24 PM HAND BRIM IRONER Sexual Orientation Straight 08/04/2018 3: 02 PM HAND BRIM IRONER documented as of this encounter Plan of Treatment Upcoming Encounters Date Type Department Care Team (Late st Contact Info) Description 09/07/2025 8:00 AM HAND BRIM IRONER [facility]ointment [facility] [address] [place] [address] Ab Mcnamara MD [address] [facility] [address] [place], [place] [address] 09/07/2025 8:30 AM HAND BRIM IRONER Appointment [facility] [place] [address] Ab Mcnamara MD [facility] [address] [place], [place] [address] documented as of this encounter Visit Diagnoses Not on filedocumented in this encounter Care Teams Human Projectile Relationship Specialty Start Date End Date Sahra Franco MD PCP - General INTERNAL MEDICINE 08/04/18 06/27/19 Sahra Franco MD PCP - General INTERNAL MEDICINE 06/28/19 05/18/20 She Aceves APNP [address] [address] PCP - General Nurse Practitioner Family 05/19/2004/17 Yoon Polk, MORISC [address] [phone] PCP - General PHYSICIAN CIVIL TECHNICIAN 05/06/23 07/12/24 Mehnaz Gunter MD [address] [place] [phone] PCP - General FAMILY PRACTICE 07/13/24 06/30/25 Justa Wilkinson, SCREEN PRINTING MACHINE OPERATOR [facility]4 [facility] [address] [place] [address] PCP - General 07/01/25 documented as of this encounter
--- OUTSIDE RECORDS SUMMARY | 2025-08-11 12:30 | XMS_ITS | Clinical Summary ---
Author Organization [facility] [address] Address [address] [place] [phone] Care Team Providers Care Screen Tender Name Role Phone Justa Wilkinson NP Primary Care Provider [phone] Allergies No known active allergies Medications albuterol HFA (PROVENTIL HFA,VENTOLIN HFA,PROAIR HFA) 90 mcg/actuation inhaler Inhale 2 puffs every 6 (six) hours as needed for wheezing 3 each 4 4 Active Wixela Inhub 250-50 mcg/dose diskus inhaler INHALE 1 PUFF INTO THE LUNGS TWICE DAILY Active gabapentin (NEURONTIN) 100 mg capsule Take 1 capsule (100 mg total) by mouth nightly 30 capsule 1 5 Active Additional Information Patient not taking.Reported on 08/11/2025 EPINEPHrine 0.3 mg/0.3 mL auto-injection syringeIndicati ons:Anaphylaxis Inject 0.3 mL (0.3 mg total) into the muscle as instructed as needed for anaphylaxis Call 911 after use. 1 each 5 Active ergocalciferol (VITAMIN D) 50,000 unit capsule Take 1 capsule (50,000 Units total) by mouth once a week 12 capsule 1 5 07/02/20 26 Active Additional Information Patient not taking.Reported on 08/11/2025 predniSONE (DELTASONE) 20 mg tablet Take by mouth Active predniSONE (DELTASONE) 20 mg tablet Take 2 tablets (40 mg) by mouth daily for 10 days 10 tablet 1 5 07/12/20 25 Active Problems Problem Noted Date Diagnosed Date Angio-edema 06/28/2025 Assessment & Plan (06/28/2025 6:35 AM CDT): Intermittent, not present during patient's office visit. Patient to begin Zyrtec and Pepcid daily. Patient to continue using Benadryl PRN when swelling occurs. Patient instructed to go to the ER if she develops any SOB or difficulty swallowing when the swelling occurs. Patient referred to hot billet shear operator for follow up. Restless leg syndrome 06/28/2025 Assessment & Plan (06/28/2025 6:37 AM CDT): CBC, iron panel, CMP, and MG level ordered. Patient prescribed gabapentin 100 mg at bedtime to decrease leg spasms and to improve sleep. Patient provided with education on potential side effects. Follow up in one month. Encounter for colonoscopy following colon polyp removal 06/28/2025 Mild persistent asthma without complication 06/16 Assessment & Plan (06/28/2025 6:30 AM CDT): Chronic, controlled. Patient to continue on Wixela inhaler BID and albuterol inhaler PRN. Follow up in 6 months. Annual physical exam 06/25/2025 Assessment & Plan (06/28/2025 6:32 AM CDT): CBC, CMP, lipid panel, TSH, A1C, PSA Mammogram last completed: 02/2025 Patient to sign release form to obtain past PAP from her INTERNAL SALESPERSON. Vaccinations: Tdap UTD. Patient received Flu vaccine in office. Discussed healthy eating habits. Repeat wellness exam in one year. Colon polyps 06/25/2025 Assessment & Plan (06/28/2025 6:33 AM CDT): Patient referred to GI for repeat colonoscopy. Allergic rhinitis 07/21/2024 Overview (02/20/2025): Takes flonase. Symptoms typically worsen seasonally. Resolved Problems Problem Noted Date Diagnosed Date Resolved Date Palpitations 06/09/2021 06/28/2025 Encounters Date Type Department Care Team Description 08/11/2025 11:45 AM OUT PATIENT THERAPIST Office Visit [facility] at [address] [phone] Avila Granado NP Right upper quadrant abdominal pain (Primary Dx); Abdominal tenderness of left lower quadrant, unspecified whether rebound tenderness present; Right upper quadrant abdominal tenderness, unspecified whether rebound tenderness present; Diarrhea, unspecified type 08/06/2025 Telephone [facility] at [address] [phone] Taylor Milligan MD 07/21/2025 Orders Only [facility] at [address] [phone] Taylor Milligan MD Polyp of colon, unspecified part of colon, unspecified type (Primary Dx) 07/19/2025 Hospital Encounter [address] [phone] Taylor Milligan MD 07/02/2025 10:15 AM CDT Telemedicine [address] [phone] Chrissie Lopez NP Rash (Primary Dx) 07/02/[address] [phone] Akila Chapman Prior Auth 07/02/2025 Telephone [facility] Primary Care [address] [place] [phone] Justa Wilkinson, CHHAYA Medication Request 07/02/2025 Results Follow-Up [facility] Care [address] [place] [phone] Justa Wilkinson, CHHAYA Ferritin, Iron profile w/ IBC, Thyroid peroxidase antibody (TPO), Additional followed-up results: 15 07/02/[address] [phone] Akila Chapman Med Refill 07/02/2025 Patient Self-Triage [facility] [address] [place] [address] [place] [address] Mychart, Generic Provider 06/30/2025 8:10 AM CDT Lab [address] [address] Fatigue, unspecified type; Arthralgia, unspecified joint; Vitamin D deficiency; Annual physical exam 06/28/2025 Orders Only [facility] G[facility] at [address] [place] [address] Taylor Milligan MD Encounter for colonoscopy following colon polyp removal (Primary Dx) 06/25/2025 1:00 PM CDT Office Visit [facility] [address] [place] [address] [address] [place] [phone] Justa Wilkinson NP Annual physical exam (Primary Dx); Mild persistent asthma without complication; Polyp of colon, unspecified part of colon, unspecified type; Restless leg syndrome; Angioedema, sequela; Arthralgia, unspecified joint; Fatigue, unspecified type; Vitamin D deficiency; Need for vaccination 06/08/2025 6:45 PM CDT Office Visit [facility] at [address] [phone] Leonela Dunham PA Abdominal pain (Primary Dx) from Last 3 Months Immunizations Immunization Administration Dates Next Due Influenza, Trivalent, Preservative Free, Intramu scular 06/25/2025 Surgical History Surgery Date Site/Laterality Comments CHOLECYSTECTOMY TUBAL LIGATION SECTION 4x Medical History Medical History Date Comments Asthma Menstrual problem Kidney stone Colon polyp Cholelithiasis Family History Medical History Relation Name Comments Hypertension Brother Jayy [place] Cancer Daughter 1 Antares Cheryl Heart attack Maternal Grandfather Silverio Lyn Diabetes Maternal Grandmother Samantha Lyn Diabetes Mother's Sister Marnie Maintenance Worker Swimming Pool Hypertension Sister Heather Rivera Asthma Son Albert Luna Relation Name Status Comments Brother Jayy Hanebrink Alive Daughter 1 Antares Cheryl Alive Daughter 2 Alive Father Alive Maternal Grandfather Silverio Lyn Alive Maternal Grandmother Samantha Garciason Alive Mother Alive Mother's Sister Marnie [place] Alive Sister Heather Rivera Alive Son Albert Luna Alive Social History Tobacco Use Types Packs/Day Years Used Date Smoking Tobacco: Former Cigarettes Q uit: 2017 Smokeless Tobacco: Never Tobacco Cessation:Counseling Given: Not Answered Alcohol Use Standard Drinks/Week Comments Yes 0 [...] on file Sexual Orientation Not on file Last Filed Vital Signs Vital Sign Reading Time Taken Comments Blood Pressure 109/74 08/11/2025 11:07 AM OUT PATIENT THERAPIST Pulse 84 08/11/2025 11:07 AM OUT PATIENT THERAPIST Temperature 36.4 C (97.6 F) 08/11/2025 11:07 AM OUT PATIENT THERAPIST Respiratory Rate 18 08/11/2025 11:07 AM OUT PATIENT THERAPIST Oxygen Saturation 98% 08/11/2025 11:07 AM OUT PATIENT THERAPIST Inhaled Oxygen Concentration - - Weight 101.4 kg (223 lb 8 oz) 08/11/2025 11:07 A M OUT PATIENT THERAPIST Height 160 cm (5' 3) 08/11/2025 11:07 AM OUT PATIENT THERAPIST Body Mass Index 39.59 08/11/2025 11:07 AM OUT PATIENT THERAPIST Plan of Treatment Upcoming Encounters Date Type Department Care Team (Late st Contact Info) Description 08/24/2025 8:30 AM OUT PATIENT THERAPIST Hospital Encounter [address] [address] Taylor Milligan MD [address] [facility] [place] [address] [place] [address] 08/24/2025 8:30 AM OUT PATIENT THERAPIST Anesthesia Event [address] [address] Bahman Nieves, ROBERT [address] [place] [address] 08/24/2025 8:30 AM OUT PATIENT THERAPIST - 08/24/2025 9:15 AM OUT PATIENT THERAPIST Surgery [address] [address] Taylor Milligan MD 201 [facility] [address] [place] [address] COLONOSCOPY Scheduled Procedures Name Priority Associated Diagnoses Date/Ti me COLONOSCOPY Polyp of colon, unspecified part of colon, unspecified type 08/24/2025 8:30 AM OUT PATIENT THERAPIST Health Maintenance Due Date Last Done Comments Cervical Cancer Screening 1985 Hepatitis C Screening 1985 Varicella Vaccines (1 of 2 - 13+ 2-dose series) 1998 Hepatitis B Screening 2003 Pneumococcal vaccine <65 (1 of 2 - PCV) 02/12/2004 HPV Vaccines (1 - 3-dose SCD M series) 02/12/2012 Covid-19 Vaccine (4 - 2024-2 6 season) 2025 03/01/2022, 05/09/2021, 04/18/2021 Breast Cancer Screening-Mammogram 01/05/2026 025, 01/05/2025 Depression Screening 06/25/2026 06/25/2025 Regular Well Visit/Exam 18-64 06/25/2026 06/25/2025 DTaP/Tdap/Td Vaccine (3 - Td or Tdap) 12/14/2027 12/13/2017, 12/03/2017 Influenza Vaccine Completed 06/25/2025, , 08/07/2022, Additional history exists Procedures Procedure Name Priority Date/Time Associated Diagnosis Comments POC INFLUENZA A/B, COVID-19 ANTIGEN Routine 08/11/2025 11:38 AM OUT PATIENT THERAPIST Right upper quadrant abdominal pain POCT RAPID STREP Routine 08/11/2025 11:2 6 AM OUT PATIENT THERAPIST Right upper quadrant abdominal pain EGFR Routine 06/30/2025 8:17 AM CDT Annual physical exam DIFFERENTIAL AUTO Routine 06/30/2025 8:1 7 AM CDT Annual physical exam CBC WITH AUTO DIFFERENTIAL Routine 06/30/2025 8:17 AM CDT Annual physical exam COMPREHENSIVE METABOLIC PANEL Routine 06/30/2025 8:17 AM CDT Annual physical exam LIPID PANEL Routine 06/30/2025 8:17 AM CDT Annual physical exam CRP (ACUTE PHASE) Routine 06/30/2025 8:1 7 AM CDT Arthralgia, unspecified joint ERYTHROCYTE SEDIMENTATION RATE Routine 06/30/2025 8:17 AM CDT Arthralgia, unspecified joint RAQUEL QUALITATIVE WITH REFLEX TO RAQUEL QUANTITATIVE Routine 06/30/2025 8:17 AM CDT Arthralgia, unspecified joint RHEUMATOID FACTOR Routine 06/30/2025 8:1 7 AM CDT Arthralgia, unspecified joint VITAMIN D 25 HYDROXY Routine 06/30/2025 8:17 AM CDT Vitamin D deficiency VITAMIN B12 Routine 06/30/2025 8:17 AM CDT Fatigue, unspecified type MAGNESIUM Routine 06/30/2025 8:17 AM CDT Arthralgia, unspecified joint TSH Routine 06/30/2025 8:17 AM CDT Fatigue, unspecified type T4, FREE Routine 06/30/2025 8:17 AM CDT Fatigue, unspecified type T3, FREE Routine 06/30/2025 8:17 AM CDT Fatigue, unspecified type THYROID PEROXIDASE ANTIBODY Routine 06/30/2025 8:17 AM CDT Fatigue, unspecified type IRON PROFILE W/ IBC Routine 06/30/2025 8 :17 AM CDT Fatigue, unspecified type FERRITIN Routine 06/30/2025 8:17 AM CDT Fatigue, unspecified type from Last 3 Months Results * POC Influenza A/B, COVID-19 antigen (08/11/2025 11:38 AM OUT PATIENT THERAPIST) Influenza A Ag, POC Negative Negative [facility] Influenza B Ag, POC Negative Negative [facility] COVID-19 Ag POC Presumptive Negative Presumptive Negative, Invalid [facility] Nasal 08/11/2025 11:3 8 AM OUT PATIENT THERAPIST Avila Granado NP POINT OF CARE TEST ORDERABLES F inal Result Performing Organization Address City/State/[facility] Co de Phone Number [facility] [address] [place] [address] * POCT rapid strep A (08/11/2025 11:26 AM OUT PATIENT THERAPIST) Rapid Strep A, POC Negative Negative Swab 08/11/2025 11:2 6 AM OUT PATIENT THERAPIST Avila Granado NP POINT OF CARE TEST ORDERABLES F inal Result * RAQUEL ab ql w/rflx to RAQUEL qn (06/30/2025 8:17 AM CDT) RAQUEL Negative Comment: Interpretive Data Normal range for RAQUEL Qualitative Antibody = Negative. 1. RAQUEL is performed using indirect immunofluorescence against HEp-2 cells 2. RAQUEL titers are performed on all positive qualitative results. 3. A significantly positive RAQUEL result is defined as a positive nuclear fluorescence at a titer of 1:80 or greater. 4. 15% of normal people above age 65 have significantly positive RAQUEL results. 5% or less of normal people age 65 or under have significantly positive RAQUEL results. Current interpretive data was last revised on 2020. Testing performed by: [facility], [address] [place]., [address] Blood 06/30/2025 8:17 AM CDT 06/30/2025 1:20 PM CDT Justa Wilkinson MACHINE WHITENER LAB BLOOD ORDERABLES Final Res ult [facility] [address] [place] [address] * eGFR (06/30/2025 8:17 AM CDT) eGFR >90 >=60 mL/min/1. 73 m2 Comment: Interpretive Data Reference Interval Normal >/= 90 mL/min/1.73m2 Mildly decreased* 60 - 89 mL/min/1.73m2 Mildly to moderately decreased 45 - 59 mL/min/1.73m2 Moderately to severely decreased 30 - 44 mL/min/1.73m2 Severely decreased 15 - 29 mL/min/1.73m2 Kidney Failure < 15 mL/min/1.73m2 *Relative to young adult level Estimated glomerular filtration rate is determined by the 2020 CKD-EPI equation recommended by the National Kidney Foundation (A Unifying Approach to GFR Estimation: Recommendations of the NKF-ASK Task Force on Reassessing the Inclusion of Race in Diagnosing Kidney Disease, JASN 2020). The CKD-EPI equation should not be used for patients with unstable renal function and has not been validated in children and those over 70. Current interpretive data was last reviewed 2021. Blood 06/30/2025 8:17 AM CDT 06/30/2025 11:17 AM CDT us Justa Wilkinson MACHINE WHITENER LAB BLOOD ORDERABLES Final Res ult [facility] [address] [place] [address] * (ABNORMAL) Differential, auto (06/30/2025 8:17 AM CDT) Neutrophil abs 9.05(H) 1.50 - 6.50 K/cumm Imm gran abs 0.07 0.00 - 0.10 K/cumm [facility] Lymphocyte abs 4.13(H) 0.80 - 3.30 K/cumm [facility] Monocyte abs 0.98(H) 0.20 - 0.80 K/cumm [facility] Eosinophil abs 0.14 0.00 - 0.50 K/cumm [facility] Basophil abs 0.03 0.00 - 0.10 K/cumm [facility] Neutrophil pct 62.8 % [facility] Comment: Interpretive Data Percent cell count reference ranges are not reported, since discordance with absolute values may lead to misinterpretation of CBC data. Current Interpretive Data was last revised on 2017. Imm gran pct 0.5 % [facility] Comment: Interpretive Data Percent cell count reference ranges are not reported, since discordance with absolute values may lead to misinterpretation of CBC data. Current Interpretive Data was last revised on 2017. Lymphocyte pct 28.7 % [facility] Comment: Interpretive Data Percent cell count reference ranges are not reported, since discordance with absolute values may lead to misinterpretation of CBC data. Current Interpretive Data was last revised on 2017. Monocyte pct 6.8 % [facility] Comment: Interpretive Data Percent cell count reference ranges are not reported, since discordance with absolute values may lead to misinterpretation of CBC data. Current Interpretive Data was last revised on 2017. Eosinophil pct 1.0 % [facility] Comment: Interpretive Data Percent cell count reference ranges are not reported, since discordance with absolute values may lead to misinterpretation of CBC data. Current Interpretive Data was last revised on 2017. Basophil pct 0.2 % [facility] Comment: Interpretive Data Percent cell count reference ranges are not reported, since discordance with absolute values may lead to misinterpretation of CBC data. Current Interpretive Data was last revised on 2017. Blood 06/30/2025 8:17 AM CDT 06/30/2025 11:19 AM CDT us Justa Wilkinson NP LAB BLOOD ORDERABLES Final Res ult [address] [address] * (ABNORMAL) Iron profile w/ IBC (06/30/2025 8:17 AM CDT) [facility] Iron 30(L) 35 - 145 mcg/dL TIBC 378 250 - 400 mcg/dL [facility] Transferrin saturation 8(L) 20 - 50 % [facility] Blood 06/30/2025 8:17 AM CDT 06/30/2025 11:17 AM CDT Justa Wilkinson MACHINE WHITENER LAB BLOOD ORDERABLES Final Res ult Performing Organization Address City/[facility] Co de Phone Number [address] [address] * (ABNORMAL) CBC with auto differential (06/30/2025 8:17 AM CDT) [facility] WBC 14.40(H) 3.80 - 9.90 K/cumm Hgb 12.0 11.9 - 15.5 g/dL [facility] Hct 38.5 35.6 - 45.5 % [facility] Plt 298 150 - 400 K/cumm [facility] MPV 11.0 9.1 - 12.3 fL [facility] RBC 4.44 3.90 - 5.20 M/cumm [facility] MCV 86.7 81.3 - 96.4 fL [facility] MCH 27.0(L) 27.1 - 33.3 pg [facility] MCHC 31.2(L) 32.3 - 35.7 g/dL [facility] RDW CV 15.3(H) 11.1 - 14.9 % [facility] RDW SD 47.9 35.7 - 48.1 fL [facility] NRBC abs 0.00 0.00 - 0.01 K/cumm [facility] Blood 06/30/2025 8:17 AM CDT 06/30/2025 11:19 AM CDT Justa Wilkinson MACHINE WHITENER LAB BLOOD ORDERABLES Final Res ult Performing Organization Address City/[facility] Co de Phone Number [id number] [place] [address] * Thyroid peroxidase antibody (TPO) (06/30/2025 8:17 AM CDT) Anti Thyroid Peroxidase <30 <=34 IUnits/mL Comment: ATPO Interpretive Data Results may be up to 28% higher in patients receiving Itraconazole. Current interpretive data was last revised 2020. Testing performed by: [facility], [address] [place]., [address] Blood 06/30/2025 8:17 AM CDT 06/30/2025 1:29 PM CDT Justa Wilkinson MACHINE WHITENER LAB BLOOD ORDERABLES Final Res ult Performing Organization Address [facility] Co de Phone Number [address] [place] [address] * (ABNORMAL) Vitamin D 25 hydroxy (06/30/2025 8:17 AM CDT) Vitamin D 25-OH 27.0(L) 30.0 - 80.0 ng/mL Blood 06/30/2025 8:17 AM CDT 06/30/2025 11:17 AM CDT us Justa Wilkinson MACHINE WHITENER LAB BLOOD ORDERABLES Final Res ult Performing Organization Address [facility] Co de Phone Number [address] [place] [address] * (ABNORMAL) Erythrocyte sedimentation rate (06/30/2025 8:17 AM CDT) Erythrocyte sedimentation rate 23(H) 1 - 20 mm/hr Blood 06/30/2025 8:17 AM CDT 06/30/2025 11:19 AM CDT us Justa Wilkinson MACHINE WHITENER LAB BLOOD ORDERABLES Final Res ult [id number] [place] [address] * Rheumatoid factor (06/30/2025 8:17 AM CDT) [facility] Rheumatoid factor, quant <10.0 <=15.0 IUnits/mL Blood 06/30/2025 8:17 AM CDT 06/30/2025 11:17 AM CDT Justa Wilkinson MACHINE WHITENER LAB BLOOD ORDERABLES Final Res ult Performing Organization Address [facility] Co de Phone Number [id number] [place] [address] * CRP (acute phase) (06/30/2025 8:17 AM CDT) [facility] CRP 3.9 <=10.0 mg/L Blood 06/30/2025 8:17 AM CDT 06/30/2025 11:17 AM CDT Justa Wilkinson MACHINE WHITENER LAB BLOOD ORDERABLES Final Res ult Performing Organization Address [facility]/ZIP Co de Phone Number [id number] [place] [address] * T3, free (06/30/2025 8:17 AM CDT) [facility] Free T3 2.8 2.0 - 4.4 pg/mL Blood 06/30/2025 8:17 AM CDT 06/30/2025 11:17 AM CDT Justa Wilkinson MACHINE WHITENER LAB BLOOD ORDERABLES Final Res ult Performing Organization Address City/[facility]/ZIP Co de Phone Number [id number] [place] [address] * TSH (06/30/2025 8:17 AM CDT) Thyroid Stimulating Hormone 0.98 0.30 - 4.20 mcIUnit/mL Blood 06/30/2025 8:17 AM CDT 06/30/2025 11:17 AM CDT us Justa Wilkinson MACHINE WHITENER LAB BLOOD ORDERABLES Final Res ult Performing Organization Address [facility] de Phone Number [address] [address] * T4, free (06/30/2025 8:17 AM CDT) Pathologist [facility] Free T4 0.97 0.90 - 1.70 ng/dL Blood 06/30/2025 8:17 AM CDT 06/30/2025 11:17 AM CDT Justa Wilkinson MACHINE WHITENER LAB BLOOD ORDERABLES Final Res ult Performing Organization Address [facility] de Phone Number [address] [place] [address] * Magnesium (06/30/2025 8:17 AM CDT) Pathologist [facility] Magnesium 2.2 1.4 - 2.5 mg/dL Blood 06/30/2025 8:17 AM CDT 06/30/2025 11:17 AM CDT Justa Wilkinson MACHINE WHITENER LAB BLOOD ORDERABLES Final Res ult Performing Organization Address [facility] de Phone Number [address] [place] [address] * Ferritin (06/30/2025 8:17 AM CDT) Pathologist [facility] Ferritin 24 13 - 150 ng/mL Blood 06/30/2025 8:17 AM CDT 06/30/2025 11:17 AM CDT us Justa Wilkinson MACHINE WHITENER LAB BLOOD ORDERABLES Final Res ult Performing Organization Address City/[facility]/ZIP Co de Phone Number [facility] [place] [address] * Vitamin B12 (06/30/2025 8:17 AM CDT) Vitamin B12 529 230 - 1,250 pg/mL Blood 06/30/2025 8:17 AM CDT 06/30/2025 11:17 AM CDT Justa Wilkinson NP LAB BLOOD ORDERABLES Final Res ult Performing Organization Address [facility] Co de Phone Number [facility] [address] [facility] [place] [address] * Lipid panel (06/30/2025 8:17 AM CDT) Cholesterol 162 30 - 199 mg/dL Comment: Interpretive Data Ages < or = 19 years Acceptable: <170 mg/dL Borderline high: 170-199 mg/dL High: >or= 200 mg/dL Ages > or = 20 years Desirable: <200 mg/dL Borderline high: 200-239 mg/dL High: >or= 240 mg/dL Literature References: 1. Expert Panel on Integrated Guidelines for Cardiovascular Health and Risk Reduction in Children and Adolescents. Pediatrics 2011;128:S213 2. NCEP Expert Panel. Circulation 2004;110:227 Current Interpretive Data was last revised on 2018. Triglycerides 84 <=149 mg/dL [facility] Comment: Interpretive Data Ages < or = 9 years Acceptable: <75 mg/dL Borderline high: 75-99 mg/dL High: >or= 100 mg/dL Ages 10 to 20 years Acceptable: <90 mg/dL Borderline high: 90-129 mg/dL High: >or= 130 mg/dL Ages > or = 20 years Desirable: <150 mg/dL Borderline high: 150-199 mg/dL High: 200-499 mg/dL Very high: >or= 499 mg/dL Literature References: 1. Expert Panel on Integrated Guidelines for Cardiovascular Health and Risk Reduction in Children and Adolescents. Pediatrics 2011;128:S213 2. NCEP Expert Panel. Circulation 2004;110:227 Current Interpretive Data was last revised on 2018. HDL 45 >=40 mg/dL [facility] Comment: Interpretive Data Ages < or = 19 years Acceptable: >45 mg/dL Borderline low: 40-45 mg/dL Low: <40 mg/dL Ages > or = 20 years Desirable: >or= 60 mg/dL Low: <40 mg/dL Literature References: 1. Expert Panel on Integrated Guidelines for Cardiovascular Health and Risk Reduction in Children and Adolescents. Pediatrics 2011;128:S213 2. NCEP Expert Panel. Circulation 2004;110:227 Current Interpretive Data was last revised on 2018. LDL, calculated 101 <=129 mg/dL [facility] Comment: Interpretive Data Ages < or = 19 years Acceptable: <110 mg/dL Borderline high: 110-129 mg/dL High: >or= 130 mg/dL Ages > or = 20 years Optimal: <100 mg/dL Near optimal: 100-129 mg/dL Borderline high: 130-159 mg/dL High: >160 mg/dL Calculated using the Lukasz LDL-C estimating equation. This equation was implemented on 2024. Prior to this date LDL-C was estimated using the Friedewald equation. Literature References: 1. Expert Panel on Integrated Guidelines for Cardiovascular Health and Risk Reduction in Children and Adolescents. Pediatrics 2011;128:S213 2. NCEP Expert Panel. Circulation 2004;110:227 3. Lukasz Leon et al. YANA Cardiol. 2019January 14;5(5):540-548. doi: 10.1001/jamacardio.2020.0013 Current Interpretive Data was last revised on 2024. Non-HDL Cholesterol 117 mg/dL [facility] Comment: Interpretive Data Ages < or = 19 years Acceptable: <120 mg/dL Borderline high: 120-144 mg/dL High: >145 mg/dL Ages > or = 20 years When triglycerides are >200 mg/dL, Non-HDL cholesterol is a secondary target of therapy with treatment goals that are 30 mg/dL greater than the LDL cholesterol target. Literature References: 1. Expert Panel on Integrated Guidelines for Cardiovascular Health and Risk Reduction in Children and Adolescents. Pediatrics 2011;128:S213 2. NCEP Expert Panel. Circulation 2004;110:227 Current Interpretive Data was last revised on 2018. Chol/HDL ratio 4 [facility] Blood 06/30/2025 8:17 AM CDT 06/30/2025 11:17 AM CDT us Justa Wilkinson NP LAB BLOOD ORDERABLES Final Res ult [facility] [address] [facility] Department [place] [address] * Comprehensive metabolic panel (06/30/2025 8:17 AM CDT) Pathologist [facility] [place] Sodium 139 135 - 145 mmol/L Potassium, pl 4.0 3.3 - 4.9 mmol/L [facility] Chloride 106 97 - 110 mmol/L [facility] CO2 25 22 - 32 mmol/L [facility] Anion gap 8 2 - 15 mmol/L [facility] BUN 8 6 - 25 mg/dL [facility] Creatinine 0.82 0.60 - 1.10 mg/dL [facility] Glucose 98 70 - 199 mg/dL [facility] Comment: Interpretive Data Fasting glucose >/= 126 mg/dl is diagnostic for diabetes. Fasting is defined as no caloric intake for at least 8 hours. Fasting glucose between 100 mg/dl to 125 mg/dl is diagnostic of prediabetes. In a patient with classic symptoms of hyperglycemia or hyperglycemic crisis, a random glucose >/= 200 mg/dl is diagnostic for diabetes. In the absence of unequivocal hyperglycemia, results should be confirmed by repeat testing. The classification and Diagnosis of Diabetes Diabetes Care 2021; 46: S19-S40. Current interpretive data was last revised 2022. Calcium 9.2 8.5 - 10.3 mg/dL [facility] Bilirubin, total 0.2 0.1 - 1.2 mg/dL [facility] Protein, pl 6.9 6.5 - 8.5 g/dL [facility] Albumin 4.1 3.5 - 5.0 g/dL [facility] Alk phos 72 40 - 130 Units/L [facility] ALT 20 7 - 45 Units/L [facility] AST 22 10 - 45 Units/L [facility] Blood 06/30/2025 8:17 AM CDT 06/30/2025 11:17 AM CDT Justa Wilkinson NP LAB BLOOD ORDERABLES Final Res ult [facility] [id number] [facility] Department [place] [employer] [place] [address] from Last 3 Months Insurance [facility] HMO/PPO Address: [address] [address] [place] [address] [facility] [employer] [facility] HMO/PPO Address: [address] [address] [place] [address] Care Teams Screen Tender Relationship Specialty Start Date End Date Justa Wilkinson NP [address] [place] [id number] PCP - General Family Medicine 06/25/25
--- OUTSIDE RECORDS SUMMARY | 2025-08-11 12:30 | XMS_ITS | Encounter Summary ---
Author Organization [facility] Healthcare Address [address] [place] [address] Care Team Providers Care Diet Kitchen Cook Name Role Phone Justa Wilkinson NP Primary Care Provider [phone] Reason for Visit * Auth/Cert (Routine) Specialty Diagnoses / Procedures Referred By Gayle t Referred To Contact Diagnoses Encounter for colonoscopy following colon polyp removal Encounter for colonoscopy following colon polyp removal [Z12.11, Z86.0100] Procedures LA COLONOSCOPY,DIAGNOSTIC COLONOSCOPY Referral ID Status Reason Start Date Expiration Date Visits Re quested Visits Authorized [id number] 1 1 Encounter Details Date Type Department Care Team (Late st Contact Info) Description 07/19/2025 Hospital Encounter [facility] [address] [place] [id number] Taylor Milligan MD [address] [facility] [address] [place] [address] Social History Tobacco Use Types Packs/Day Years [...] on file documented as of this encounter Functional Status * AUDIT-C Score Answer Date of Assessment Author 1 07/22/2025 2:27 PM Me teresa Stoddard RN * Alcohol Use Question Answer Date of Assessment Author Q1: How often do you have a drink containing alcohol? Monthly or less 07/22/2025 2:27 PM Angy Stoddard RN Q2: How many drinks containing alcohol do you have on a typical day when you are drinking? 1 or 2 07/22/2025 2:27 PM Angy Stoddard RN Q3: How often do you have six or more drinks on one occasion? Never 07/22/2025 2:27 PM Angy Stoddard RN documented as of this encounter Plan of Treatment Upcoming Encounters Date Type Department Care Team (Late st Contact Info) Description 08/24/2025 8:30 AM [employer] Hospital Encounter [address] [address] Taylor Milligan MD [address] [facility] [address] [place] [address] 08/24/2025 8:30 AM [employer] Anesthesia Event [address] [address] Bahman Nieves, ROBERT [address] [place] [address] 08/24/2025 8:30 AM [employer] - 08/24/2025 9:15 AM [employer] Surgery [address] [address] Taylor Milligan MD [address] [facility] [address] [place] [address] COLONOSCOPY Scheduled Procedures Name Priority Associated Diagnoses Date/Ti me COLONOSCOPY Polyp of colon, unspecified part of colon, unspecified type 08/24/2025 8:30 AM [employer] documented as of this encounter Visit Diagnoses Diagnosis Encounter for colonoscopy following colon polyp removal- Primary Colon polyps- Primary Benign neoplasm of colon Polyp of colon, unspecified part of colon, unspecified type documented in this encounter Admitting Diagnoses Diagnosis Encounter for colonoscopy following colon polyp removal documented in this encounter Additional Health Concerns Infection Onset Date Last Indicated Resolved Time COVID: Suspected 08/11/2025 08/11/2025 08/11/2025 11:39 AM [employer] documented as of this encounter Care Teams Diet Kitchen Cook Relationship Specialty Start Date End Date Justa Wilkinson NP [address] [place] [phone] PCP - General Family Medicine 06/25/25 documented as of this encounter
--- OUTSIDE RECORDS SUMMARY | 2025-08-11 13:10 | XMS_ITS | Clinical Summary ---
Author Organization [facility] [address] Address [address] [place] [phone] Care Team Providers Care Miniature Set Constructor Name Role Phone Justa Wilkinson NP Primary Care Provider [phone] Allergies No known active allergies Medications albuterol [...] when the swelling occurs. Patient referred to clinical engineer for follow up. Restless leg syndrome 06/28/2025 [...] form to obtain past PAP from her INSTRUCTOR DECORATING. Vaccinations: Tdap UTD. Patient received Flu vaccine [...] Department Care Team Description 08/11/2025 11:45 AM WET PLANT OPERATOR Office Visit [facility] at [address] [phone] Avila Granado NP Right upper quadrant abdominal pain (Primary Dx); Abdominal tenderness of left lower quadrant, unspecified whether rebound tenderness present; Right upper quadrant abdominal tenderness, unspecified whether rebound tenderness present; Diarrhea, unspecified type 08/06/2025 Telephone [facility] at [address] [phone] Taylor Milligan MD 07/21/2025 Orders Only [facility] at [address] [phone] Taylor Milligan MD Polyp of colon, unspecified part of colon, unspecified type (Primary Dx) 07/19/2025 Hospital Encounter [address] [phone] Taylor Milligan MD 07/02/2025 10:15 AM CDT Telemedicine [address] [phone] Chrissie Lopez NP Rash (Primary Dx) 07/02/[address] [phone] Akila Chapman Prior Auth 07/02/2025 Telephone [facility] [address] [place] [phone] Justa Wilkinson, CHHAYA Medication Request 07/02/2025 Results Follow-Up [facility] [address] [place] [phone] Justa Wilkinson, CHHAYA Ferritin, Iron profile w/ IBC, Thyroid peroxidase antibody (TPO), Additional followed-up results: 15 07/02/[address] [phone] Akila Chapman Med Refill 07/02/2025 Patient Self-Triage [facility] [address] [place] [address] [place] [address] Mychart, Generic Provider 06/30/2025 8:10 AM CDT Lab [address] [address] Fatigue, unspecified type; Arthralgia, unspecified joint; Vitamin D deficiency; Annual physical exam 06/28/2025 Orders Only [facility] at [address] [place] [address] Taylor Milligan MD Encounter for colonoscopy following colon polyp removal (Primary Dx) 06/25/2025 1:00 PM CDT Office Visit [facility] [address] [place] [address] [address] [place] [phone] Justa Wilkinson NP Annual physical exam (Primary Dx); Mild persistent asthma without complication; Polyp of colon, unspecified part of colon, unspecified type; Restless leg syndrome; Angioedema, sequela; Arthralgia, unspecified joint; Fatigue, unspecified type; Vitamin D deficiency; Need for vaccination 06/08/2025 6:45 PM CDT Office Visit [facility] at [address] [phone] Leonela Dunham PA Abdominal pain (Primary Dx) from Last 3 Months Immunizations Immunization Administration Dates Next Due Influenza, Trivalent, Preservative Free, Intramu scular 06/25/2025 Surgical History Surgery Date Site/Laterality Comments CHOLECYSTECTOMY TUBAL LIGATION SECTION 4x Medical History Medical History Date Comments Asthma Menstrual problem Kidney stone Colon polyp Cholelithiasis Family History Medical History Relation Name Comments Hypertension Brother Jayy [place] Cancer Daughter 1 [place] Cheryl Heart attack Maternal Grandfather Silverio Lyn Diabetes Maternal Grandmother Samantha Lyn Diabetes Mother's Sister Marnie Finish Grinder Hypertension Sister Heather Rivera Asthma Son Albert Luna Relation Name Status Comments Brother Jayy Hanebrink Alive Daughter 1 [place] Cheryl Alive Daughter 2 Alive Father Alive Maternal Grandfather Silverio Lyn Alive Maternal Grandmother Samantha Garciason Alive Mother Alive Mother's Sister Marnie Eckerman Alive Sister Heather Rivera Alive Son Albert [...] Comments Blood Pressure 109/74 08/11/2025 11:07 AM WET PLANT OPERATOR Pulse 84 08/11/2025 11:07 AM WET PLANT OPERATOR Temperature 36.4 C (97.6 F) 08/11/2025 11:07 AM WET PLANT OPERATOR Respiratory Rate 18 08/11/2025 11:07 AM WET PLANT OPERATOR Oxygen Saturation 98% 08/11/2025 11:07 AM WET PLANT OPERATOR Inhaled Oxygen Concentration - - Weight 101.4 kg (223 lb 8 oz) 08/11/2025 11:07 A M WET PLANT OPERATOR Height 160 cm (5' 3) 08/11/2025 11:07 AM WET PLANT OPERATOR Body Mass Index 39.59 08/11/2025 11:07 AM WET PLANT OPERATOR Plan of Treatment Upcoming Encounters Date Type Department Care Team (Late st Contact Info) Description 08/24/2025 8:30 AM WET PLANT OPERATOR Hospital Encounter [address] [address] Taylor Milligan MD 201 [facility] [place] [address] [place] [address] 08/24/2025 8:30 AM WET PLANT OPERATOR Anesthesia Event [address] [address] Bahman Nieves, ROBERT [address] [place] [address] 08/24/2025 8:30 AM WET PLANT OPERATOR - 08/24/2025 9:15 AM WET PLANT OPERATOR Surgery [address] [address] Taylor Milligan MD 201 [facility] [address] [place] [address] COLONOSCOPY Scheduled Procedures Name Priority Associated Diagnoses Date/Ti me COLONOSCOPY Polyp of colon, unspecified part of colon, unspecified type 08/24/2025 8:30 AM WET PLANT OPERATOR Health Maintenance Due Date Last Done Comments [...] A/B, COVID-19 ANTIGEN Routine 08/11/2025 11:38 AM WET PLANT OPERATOR Right upper quadrant abdominal pain POCT RAPID STREP Routine 08/11/2025 11:2 6 AM WET PLANT OPERATOR Right upper quadrant abdominal pain EGFR Routine [...] Influenza A/B, COVID-19 antigen (08/11/2025 11:38 AM WET PLANT OPERATOR) Influenza A Ag, POC Negative Negative [facility] Influenza B Ag, POC Negative Negative [facility] COVID-19 Ag POC Presumptive Negative Presumptive Negative, Invalid [facility] Nasal 08/11/2025 11:3 8 AM WET PLANT OPERATOR Avila Granado NP POINT OF CARE TEST ORDERABLES F inal Result Performing Organization Address City/State/[facility] Co de Phone Number [facility] EDW [address] [place] [address] * POCT rapid strep A (08/11/2025 11:26 AM WET PLANT OPERATOR) Rapid Strep A, POC Negative Negative Swab 08/11/2025 11:2 6 AM WET PLANT OPERATOR Avila Granado NP POINT OF CARE TEST [...] last revised on 2020. Testing performed by: [facility], [address] [place]., [address] Blood 06/30/2025 8:17 AM CDT 06/30/2025 1:20 PM CDT Justa Wilkinson PRODUCTION CHECKER LAB BLOOD ORDERABLES Final Res ult [facility] [address] [employer] [address] [place] [address] * eGFR (06/30/2025 8:17 AM CDT) eGFR [...] 06/30/2025 11:17 AM CDT us Justa Wilkinson PRODUCTION CHECKER LAB BLOOD ORDERABLES Final Res ult [facility] [address] [employer] [address] [place] [address] * (ABNORMAL) Differential, auto (06/30/2025 8:17 AM CDT) Neutrophil abs 9.05(H) 1.50 - 6.50 K/cumm Imm gran abs 0.07 0.00 - 0.10 K/cumm [facility] Lymphocyte abs 4.13(H) 0.80 - 3.30 K/cumm [facility] Monocyte abs 0.98(H) 0.20 - 0.80 K/cumm [facility] Eosinophil abs 0.14 0.00 - 0.50 K/cumm [facility] Basophil abs 0.03 0.00 - 0.10 K/cumm [facility] Neutrophil pct 62.8 % [facility] Comment: Interpretive Data Percent cell count reference ranges are not reported, since discordance with absolute values may lead to misinterpretation of CBC data. Current Interpretive Data was last revised on 2017. Imm gran pct 0.5 % [facility] Comment: Interpretive Data Percent cell count reference ranges are not reported, since discordance with absolute values may lead to misinterpretation of CBC data. Current Interpretive Data was last revised on 2017. Lymphocyte pct 28.7 % [facility] Comment: Interpretive Data Percent cell count reference ranges are not reported, since discordance with absolute values may lead to misinterpretation of CBC data. Current Interpretive Data was last revised on 2017. Monocyte pct 6.8 % [facility] Comment: Interpretive Data Percent cell count reference ranges are not reported, since discordance with absolute values may lead to misinterpretation of CBC data. Current Interpretive Data was last revised on 2017. Eosinophil pct 1.0 % [facility] Comment: Interpretive Data Percent cell count reference ranges are not reported, since discordance with absolute values may lead to misinterpretation of CBC data. Current Interpretive Data was last revised on 2017. Basophil pct 0.2 % [facility] Comment: Interpretive Data Percent cell count reference ranges are not reported, since discordance with absolute values may lead to misinterpretation of CBC data. Current Interpretive Data was last revised on 2017. Blood 06/30/2025 8:17 AM CDT 06/30/2025 11:19 AM CDT us Justa Wilkinson NP LAB BLOOD ORDERABLES Final Res ult [address] [address] * (ABNORMAL) Iron profile w/ IBC (06/30/2025 8:17 AM CDT) [facility] Iron 30(L) 35 - 145 mcg/dL TIBC 378 250 - 400 mcg/dL [facility] Transferrin saturation 8(L) 20 - 50 % [facility] Blood 06/30/2025 8:17 AM CDT 06/30/2025 11:17 AM CDT Justa Wilkinson PRODUCTION CHECKER LAB BLOOD ORDERABLES Final Res ult Performing Organization Address City/[facility] Co de Phone Number [address] [address] * (ABNORMAL) CBC with auto differential (06/30/2025 8:17 AM CDT) [facility] WBC 14.40(H) 3.80 - 9.90 K/cumm Hgb 12.0 11.9 - 15.5 g/dL [facility] Hct 38.5 35.6 - 45.5 % [facility] Plt 298 150 - 400 K/cumm [facility] MPV 11.0 9.1 - 12.3 fL [facility] RBC 4.44 3.90 - 5.20 M/cumm [facility] MCV 86.7 81.3 - 96.4 fL [facility] MCH 27.0(L) 27.1 - 33.3 pg [facility] MCHC 31.2(L) 32.3 - 35.7 g/dL [facility] RDW CV 15.3(H) 11.1 - 14.9 % [facility] RDW SD 47.9 35.7 - 48.1 fL [facility] NRBC abs 0.00 0.00 - 0.01 K/cumm [facility] Blood 06/30/2025 8:17 AM CDT 06/30/2025 11:19 AM CDT Justa Wilkinson PRODUCTION CHECKER LAB BLOOD ORDERABLES Final Res ult Performing Organization Address City/[facility] Co de Phone Number [id number] [place] [address] * Thyroid peroxidase antibody (TPO) (06/30/2025 8:17 AM CDT) Anti Thyroid Peroxidase <30 <=34 IUnits/mL Comment: ATPO Interpretive Data Results may be up to 28% higher in patients receiving Itraconazole. Current interpretive data was last revised 2020. Testing performed by: [facility], [address] [place]., [address] Blood 06/30/2025 8:17 AM CDT 06/30/2025 1:29 PM CDT Justa Wilkinson PRODUCTION CHECKER LAB BLOOD ORDERABLES Final Res ult Performing Organization Address [facility] Co de Phone Number [address] [place] [address] * (ABNORMAL) Vitamin D 25 hydroxy (06/30/2025 8:17 AM CDT) Vitamin D 25-OH 27.0(L) 30.0 - 80.0 ng/mL Blood 06/30/2025 8:17 AM CDT 06/30/2025 11:17 AM CDT us Justa Wilkinson PRODUCTION CHECKER LAB BLOOD ORDERABLES Final Res ult Performing Organization Address [facility] Co de Phone Number [address] [place] [address] * (ABNORMAL) Erythrocyte sedimentation rate (06/30/2025 8:17 AM CDT) Erythrocyte sedimentation rate 23(H) 1 - 20 mm/hr Blood 06/30/2025 8:17 AM CDT 06/30/2025 11:19 AM CDT us Justa Wilkinson PRODUCTION CHECKER LAB BLOOD ORDERABLES Final Res ult [id number] [place] [address] * Rheumatoid factor (06/30/2025 8:17 AM CDT) [facility] Rheumatoid factor, quant <10.0 <=15.0 IUnits/mL Blood 06/30/2025 8:17 AM CDT 06/30/2025 11:17 AM CDT Justa Wilkinson PRODUCTION CHECKER LAB BLOOD ORDERABLES Final Res ult Performing Organization Address [facility] Co de Phone Number [id number] [place] [address] * CRP (acute phase) (06/30/2025 8:17 AM CDT) [facility] CRP 3.9 <=10.0 mg/L Blood 06/30/2025 8:17 AM CDT 06/30/2025 11:17 AM CDT uJsta Wilkinson PRODUCTION CHECKER LAB BLOOD ORDERABLES Final Res ult Performing Organization Address [facility]/ZIP Co de Phone Number [id number] [place] [address] * T3, free (06/30/2025 8:17 AM CDT) [facility] Free T3 2.8 2.0 - 4.4 pg/mL Blood 06/30/2025 8:17 AM CDT 06/30/2025 11:17 AM CDT Justa Wilkinson PRODUCTION CHECKER LAB BLOOD ORDERABLES Final Res ult Performing Organization Address City/[facility]/ZIP Co de Phone Number [id number] [place] [address] * TSH (06/30/2025 8:17 AM CDT) Thyroid Stimulating Hormone 0.98 0.30 - 4.20 mcIUnit/mL Blood 06/30/2025 8:17 AM CDT 06/30/2025 11:17 AM CDT us Justa Wilkinson PRODUCTION CHECKER LAB BLOOD ORDERABLES Final Res ult Performing Organization Address [facility] de Phone Number [address] [address] * T4, free (06/30/2025 8:17 AM CDT) Pathologist [facility] Free T4 0.97 0.90 - 1.70 ng/dL Blood 06/30/2025 8:17 AM CDT 06/30/2025 11:17 AM CDT Justa Wilkinson PRODUCTION CHECKER LAB BLOOD ORDERABLES Final Res ult Performing Organization Address [facility] de Phone Number [address] [place] [address] * Magnesium (06/30/2025 8:17 AM CDT) Pathologist [facility] Magnesium 2.2 1.4 - 2.5 mg/dL Blood 06/30/2025 8:17 AM CDT 06/30/2025 11:17 AM CDT Justa Wilkinson PRODUCTION CHECKER LAB BLOOD ORDERABLES Final Res ult Performing Organization Address [facility] de Phone Number [address] [place] [address] * Ferritin (06/30/2025 8:17 AM CDT) Pathologist [facility] Ferritin 24 13 - 150 ng/mL Blood 06/30/2025 8:17 AM CDT 06/30/2025 11:17 AM CDT us Justa Wilkinson PRODUCTION CHECKER LAB BLOOD ORDERABLES Final Res ult Performing Organization Address City/[facility]/ZIP Co de Phone Number [facility] [place] [address] * Vitamin B12 (06/30/2025 8:17 AM CDT) Vitamin B12 529 230 - 1,250 pg/mL Blood 06/30/2025 8:17 AM CDT 06/30/2025 11:17 AM CDT Justa Wilkinson NP LAB BLOOD ORDERABLES Final Res ult Performing Organization Address [facility] Co de Phone Number [facility] [address] [facility] [place] [address] * Lipid panel (06/30/2025 8:17 AM CDT) [...] revised on 2018. Triglycerides 84 <=149 mg/dL [facility] Comment: Interpretive Data Ages < or = [...] last revised on 2018. Chol/HDL ratio 4 [facility] Blood 06/30/2025 8:17 AM CDT 06/30/2025 11:17 AM CDT us Justa Wilkinson NP LAB BLOOD ORDERABLES Final Res ult [facility] [address] [facility] [place] [address] * Comprehensive metabolic panel (06/30/2025 8:17 AM CDT) Pathologist [facility] Sodium 139 135 - 145 mmol/L Potassium, pl 4.0 3.3 - 4.9 mmol/L [facility] Chloride 106 97 - 110 mmol/L [facility] CO2 25 22 - 32 mmol/L [facility] Anion gap 8 2 - 15 mmol/L [facility] BUN 8 6 - 25 mg/dL [facility] Creatinine 0.82 0.60 - 1.10 mg/dL [facility] Glucose 98 70 - 199 mg/dL [facility] Comment: Interpretive Data Fasting glucose >/= 126 [...] 2022. Calcium 9.2 8.5 - 10.3 mg/dL [facility] Bilirubin, total 0.2 0.1 - 1.2 mg/dL [facility] Protein, pl 6.9 6.5 - 8.5 g/dL [facility] Albumin 4.1 3.5 - 5.0 g/dL [facility] Alk phos 72 40 - 130 Units/L [facility] ALT 20 7 - 45 Units/L [facility] AST 22 10 - 45 Units/L [facility] Blood 06/30/2025 8:17 AM CDT 06/30/2025 11:17 AM CDT Justa Wilkinson NP LAB BLOOD ORDERABLES Final Res ult [facility] [address] [facility] Department [place] [address] from Last 3 Months Insurance [employer] Care Teams Miniature Set Constructor Relationship Specialty Start Date End Date Justa Wilkinson NP [address] [place] [address] PCP - General Family Medicine 06/25/25
--- OUTSIDE RECORDS SUMMARY | 2025-08-11 13:10 | XMS_ITS | Clinical Summary ---
Author Organization [facility] Address [address] [place] [address] Phone Care Team Providers Care Executive Producer Promos Name Role Phone Unavailable Primary Care Provider [...] - Td or Tdap) 12/14/2027, 12/03/2017 Insurance [employer] [id number] Member Subscriber Plan / Payer (Ef fective 2022-Present) Name:Hedy Luna Relation to Subscriber:Spouse Name:MARTIN LUNA Date of :1988 (Home) Address: [address] [place] [address] Payer ID:[id number] (NAIC) Type:HMO Address: [facility] [id number] [place] [id number]
--- OUTSIDE RECORDS SUMMARY | 2025-08-11 13:10 | XMS_ITS | Encounter Summary ---
Author Organization [facility] Healthcare Address [address] [place] [address] Care Team Providers Care Demographic Analyst Name Role Phone Justa Wilkinson NP Primary Care Provider [phone] Reason for Visit * Auth/Cert (Routine) Specialty Diagnoses / Procedures Referred By Gayle t Referred To Contact Diagnoses Encounter for colonoscopy following colon polyp removal Encounter for colonoscopy following colon polyp removal [Z12.11, Z86.0100] Procedures [place] COLONOSCOPY,DIAGNOSTIC COLONOSCOPY Referral ID Status Reason Start Date Expiration Date Visits Re quested Visits Authorized [id number] 1 1 Encounter Details Date Type Department Care Team (Late st Contact Info) Description 07/19/2025 Hospital Encounter [facility] [address] [place] [address] Taylor Milligan MD 201 [facility] [address] [place] [address] Social History Tobacco Use Types Packs/Day Years [...] st Contact Info) Description 08/24/2025 8:30 AM PROFILING MACHINE SET UP OPERATOR Hospital Encounter [address] [address] Taylor Milligan MD 201 [facility] [address] [place] [address] 08/24/2025 8:30 AM PROFILING MACHINE SET UP OPERATOR Anesthesia Event [address] [address] Bahman Nieves, ROBERT [address] [place] [address] 08/24/2025 8:30 AM PROFILING MACHINE SET UP OPERATOR - 08/24/2025 9:15 AM PROFILING MACHINE SET UP OPERATOR Surgery [address] [address] Taylor Milligan MD 201 [facility] [address] [place] [address] COLONOSCOPY Scheduled Procedures Name Priority Associated Diagnoses Date/Ti me COLONOSCOPY Polyp of colon, unspecified part of colon, unspecified type 08/24/2025 8:30 AM PROFILING MACHINE SET UP OPERATOR documented as of this encounter Visit Diagnoses [...] COVID: Suspected 08/11/2025 08/11/2025 08/11/2025 11:39 AM PROFILING MACHINE SET UP OPERATOR documented as of this encounter Care Teams Demographic Analyst Relationship Specialty Start Date End Date Justa Wilkinson NP [address] [place] [phone] PCP - General Family Medicine 06/25/25 documented as of this encounter
[2025-08-11 13:26] LABS: Add Urine Microscopic? YES; Appearance Urine Clear (Clear); Glucose Urine UA Negative (Negative); Leukocyte Esterase Ur Negative LEU/UL (Negative); Nitrate Urine Negative (Negative); Non Pathogenic Casts 0-2; Specific Grav Ur 1.010 (1.001-1.035)
[2025-08-11] MEDS: ONDANSETRON INJ 4 MG/2 ML VIAL IV PUSH (13:40)
[2025-08-11 13:41] LABS: BEDSIDEPREGUCG Negative (Negative)
[2025-08-11 13:42] LABS: Alanine Aminotransferase 36 U/L (6-35); Albumin Level 5.0 g/dL (3.5-5.1); Alkaline Phosphatase 74 U/L (38-126); Anion Gap 15 mmol/L (4-12); Aspartate Amino Transferase 38 U/L (14-36); Bilirubin,Total 0.5 mg/dL (0.2-1.3); Blood Urea Nitrogen 10 mg/dL (7-17); Calcium 9.7 mg/dL (8.4-10.2); Carbon Dioxide 24 mmol/L (22-30); Chloride 98 mmol/L (98-107); Estimated CRCL calculation 89 ml/min; Estimated Glomerular Filt Rate > 60; Glucose 89 mg/dL (65-110); Lipase 157 U/L (23-300); Potassium 4.1 mmol/L (3.4-5.0); Sodium 137 mmol/L (137-145); Total Protein 8.7 g/dL (6.3-8.2)
[2025-08-11 13:55] LABS: Hematocrit 37.9 % (37.0-47.0); Hemoglobin 11.9 g/dL (12.0-15.0); Immature Granulocyte Percent A 0.4 % (0-0.5); Lymphocytes Absolute Auto 3.09 K/mm3 (0.9-3.2); Mean Corpuscular HGB Conc 31.4 g/dl (32-36); Mean Corpuscular Hemoglobin 26.7 pg (26-34); Mean Corpuscular Volume 85.0 fl (80-100); Nucleated Red Blood Cells Absolute Auto 0.000 K/mm3 (0.0-0.012); Nucleated Red Blood Cells Perc 0.0 % (0.0-0.2); Platelet Count Result 262 k/mm3 (150-375); Red Blood Count 4.46 M/mm3 (4.2-5.4); White Blood Count 8.5 K/mm3 (4.5-10.0)
--- NOTE | 2025-08-11 14:53 | ED_ITS ---
HPI - Abdominal Pain General Chief Complaint: Abdominal Pain Stated Complaint: abd pain Time Seen by Provider: 08/11/25 12:55 History of Present Illness HPI narrative: Patient presenting here with right upper quadrant pain and nausea vomiting after starting GoLYTELY for colonoscopy prep. Related Data Home Medications ?Medication ?Instructions ?Recorded ?Confirmed ?Last Taken ?Type albuterol sulfate 90 mcg/actuation 2 puff inhalation P RN PRN 06/20/24 05/10/25 Unknown History aerosol inhaler Shortness Of Breath Or Wheez ing fluticasone 250 mcg-salmeterol 50 1 inh inhalation Q12 H 05/10/25 05/10/25 Unknown History mcg/dose blistr powdr for inhalation (Wixela Inhub) Allergies Allergy/AdvReac Type Severity Reaction Status Date / Time No Known Allergies Allergy Verified 08/11/25 12:18 Review of Systems 2 Review of Systems: All systems reviewed & are unremarkable except as noted in HPI and below PMFSH Past Medical History Medical History Asthma Advanced maternal age (AMA) in Surgical History Surgical History Tubal ligation status History of section x3 History of cholecystectomy Family History Family History Mother Colon polyp Grandparent Diabetes mellitus Son Asthma Social History Social History Smoking status: Former smoker Second hand tobacco smoke exposure: No Smoking end date: 09/16/16 Alcohol intake: current Substance use: never Lack of Transportation: No Lack of Food: Never True Current Housing: I Have Housing Concerned About Future Housing: No Difficulty Paying Gas/Electric Bills: No Difficulty Paying for Meds: No Currently Unemployed: No Education: Associate Degree Difficulty w/ Childcare or Family Care: No Spiritual care concerns: No Exam 2 Narrative: EXAMINATION OF ORGAN SYSTEMS/BODY AREAS: Constitutional: Vital signs per nursing GENERAL:[No acute distress, non-toxic appearing.] HEAD: Normal with no signs of head trauma. EYES: EOMI, conjunctiva normal ENT: Hearing grossly intact LUNGS: Nonlabored breathing. HEART: [Regular rate and rhythm] ABD: [Soft], very minimally tender to deep palpation right upper quadrant, negative Nova sign EXT: Normal range of motion SKIN: [No rashes or lesions.] NEURO: [Alert and oriented x 3. No gross focal sensory or strength deficits.] PSYCH: Normal affect Course Vital Signs Vital signs: Vital Signs Temperature 97.8 F 08/11/25 12:16 Pulse Rate 97 08/11/25 12:16 Respiratory Rate 14 08/11/25 12:16 Blood Pressure 133/96 H 08/11/25 12:16 Pulse Oximetry 99 08/11/25 12:16 Oxygen Delivery Room Air 08/11/25 12:16 Temperature 97.8 F 08/11/25 12:16 Pulse Rate 97 08/11/25 12:16 Respiratory Rate 14 08/11/25 12:16 Blood Pressure 133/96 H 08/11/25 12:16 Pulse Oximetry 99 08/11/25 12:16 Oxygen Delivery Room Air 08/11/25 12:16 MDM - Abdominal Pain MDM Narrative Medical decision making narrative: Electronic medical record was reviewed. Patient presented to the ED with complaint of [abdominal pain and vomiting]. Vitals [were within acceptable limits]. Physical exam revealed soft abdomen, very minimal tenderness to deep palpation right upper quadrant, well-appearing patient overall. Based on the patient's history and physical exam, my differential includes but is not limited to [gastritis, gastroenteritis, cholecystitis, pancreatitis, appendicitis]. [IV access was established by nursing staff. Patient was given zofran]. CBC, BMP, lipase, LFTs, bilirubin and alk phos were obtained. Labs were pertinent for very minimally elevated LFTs. [Decision was made to obtain a CT- abdomen to evaluate for acute abdominal process. CT-abdomen per radiology interpretation is unremarkable for acute intra-abdominal process, no signs of hydronephrosis, cholecystitis, appendicitis.] She does have hepatic steatosis, which I have discussed with patient and she is agreeable to following up with her GI specialist. I did discuss lifestyle changes including dietary changes, weight loss, exercise. On reevaluation, the patient states that they are feeling fine. There were no witnessed episodes of vomiting in the emergency department. They are not complaining of any new abdominal pain. Repeat examination did not show any significant guarding or rebound. No new tenderness. At this time I do not feel there is any further emergent treatment to be provided. The patient was given strict return precautions, if they are to develop any worsening abdominal pain, vomiting, or blood in the vomit they are to return to the emergency department immediately. Patient verbally acknowledges understanding these directions. [The patient was informed of the above diagnostic test findings.] No further workup is necessary at this time. They will be discharged home [with prescriptions]. They were advised to follow-up with [their PCP] and GI specialist in 2 days. The patient feels that this is appropriate medical decision making and verbalizes an understanding of the discharge instructions. Lab Data 08/11/25 13:49 08/11/25 13:14 Labs: Lab Results 08/11/25 08/11/25 08/11/25 Range/Units 12:59 13:14 13:39 WBC (4.5-10.0) K/mm3 RBC (4.2-5.4) M/mm3 Hgb (12.0-15.0) g/dL Hct (37.0-47.0) % MCV (80-100) fl MCH (26-34) pg MCHC (32-36) g/dl RDW (11.5-14.5) % Plt Count (150-375) k/mm3 MPV (7.4-10.4) fl Immature Gran % (Auto) (0-0.5) % Neut % (Auto) (45.5-73.1) % Lymph % (Auto) (18.3-44.2) % Garland % (Auto) (2.6-8.5) % Eos % (Auto) (0-4.4) % Baso % (Auto) (0.2-1.2) % Lymph # (Auto) (0.9-3.2) K/mm3 Garland # (Auto) (0.1-0.6) K/mm3 Eos # (Auto) (0-0.3) K/mm3 Baso # (Auto) (0.0-0.1) K/mm3 Abs Immat Gran (auto) (0.00-0.031) K/mm3 Absolute Neuts (auto) (1.3-6.7) K/mm3 Absolute Nucleated RBC (0.0-0.012) K/mm3 Nucleated RBC % (0.0-0.2) % Sodium 137 (137-145) mmol/L Potassium 4.1 (3.4-5.0) mmol/L Chloride 98 (98-107) mmol/L Carbon Dioxide 24 (22-30) mmol/L Anion Gap 15 H (4-12) mmol/L BUN 10 (7-17) mg/dL Creatinine 0.83 (0.7-1.0) mg/dL Estim Creat Clear Calc 89 ml/min Estimated GFR > 60 (59 - ) Glucose 89 (65-110) mg/dL Lactic Acid 0.8 (0.7-2.0) mmol/L Calcium 9.7 (8.4-10.2) mg/dL Total Bilirubin 0.5 (0.2-1.3) mg/dL AST 38 H (14-36) U/L ALT 36 H (6-35) U/L Alkaline Phosphatase 74 (38-126) U/L Total Protein 8.7 H (6.3-8.2) g/dL Albumin 5.0 (3.5-5.1) g/dL Lipase 157 (23-300) U/L Urine Color Yellow (Yellow) Urine Appearance Clear (Clear) Urine pH 5.0 (5.0-9.0) Ur Specific Squire 1.010 (1.001-1.035) Urine Protein Negative (Negative) mg/dL Urine Glucose (UA) Negative (Negative) mg/dL Urine Ketones Negative (Negative) mg/dL Ur Blood (Man) 2+ H (Negative) Urine Nitrate Negative (Negative) Urine Bilirubin Negative (Negative) Urine Urobilinogen 0.2 (<2.0) mg/dL Leukocyte Esterase Rfl Negative (Negative) KIKO/UL Urine RBC 0-2 (0-2) /hpf Urine WBC 0-5 (0-3) /hpf Ur Squamous Epith Cells None seen (Few) /hpf Urine Bacteria None seen /hpf Urine Casts 0-2 POC Urine HCG, Qual Negative (Negative) 08/11/25 Range/Units 13:49 WBC 8.5 (4.5-10.0) K/mm3 RBC 4.46 (4.2-5.4) M/mm3 Hgb 11.9 L (12.0-15.0) g/dL Hct 37.9 (37.0-47.0) % MCV 85.0 (80-100) fl MCH 26.7 (26-34) pg MCHC 31.4 L (32-36) g/dl RDW 14.6 H (11.5-14.5) % Plt Count 262 (150-375) k/mm3 MPV 10.1 (7.4-10.4) fl Immature Gran % (Auto) 0.4 (0-0.5) % Neut % (Auto) 52.6 (45.5-73.1) % Lymph % (Auto) 36.5 (18.3-44.2) % Garland % (Auto) 5.7 (2.6-8.5) % Eos % (Auto) 4.7 H (0-4.4) % Baso % (Auto) 0.1 L (0.2-1.2) % Lymph # (Auto) 3.09 (0.9-3.2) K/mm3 Garland # (Auto) 0.5 (0.1-0.6) K/mm3 Eos # (Auto) 0.4 H (0-0.3) K/mm3 Baso # (Auto) 0.0 (0.0-0.1) K/mm3 Abs Immat Gran (auto) 0.03 (0.00-0.031) K/mm3 Absolute Neuts (auto) 4.5 (1.3-6.7) K/mm3 Absolute Nucleated RBC 0.000 (0.0-0.012) K/mm3 Nucleated RBC % 0.0 (0.0-0.2) % Sodium (137-145) mmol/L Potassium (3.4-5.0) mmol/L Chloride (98-107) mmol/L Carbon Dioxide (22-30) mmol/L Anion Gap (4-12) mmol/L BUN (7-17) mg/dL Creatinine (0.7-1.0) mg/dL Estim Creat Clear Calc ml/min Estimated GFR (59 - ) Glucose (65-110) mg/dL Lactic Acid (0.7-2.0) mmol/L Calcium (8.4-10.2) mg/dL Total Bilirubin (0.2-1.3) mg/dL AST (14-36) U/L ALT (6-35) U/L Alkaline Phosphatase (38-126) U/L Total Protein (6.3-8.2) g/dL Albumin (3.5-5.1) g/dL Lipase (23-300) U/L Urine Color (Yellow) Urine Appearance (Clear) Urine pH (5.0-9.0) Ur Specific Squire (1.001-1.035) Urine Protein (Negative) mg/dL Urine Glucose (UA) (Negative) mg/dL Urine Ketones (Negative) mg/dL Ur Blood (Man) (Negative) Urine Nitrate (Negative) Urine Bilirubin (Negative) Urine Urobilinogen (<2.0) mg/dL Leukocyte Esterase Rfl (Negative) KIKO/UL Urine RBC (0-2) /hpf Urine WBC (0-3) /hpf Ur Squamous Epith Cells (Few) /hpf Urine Bacteria /hpf Urine Casts POC Urine HCG, Qual (Negative) Imaging Data Radiologist's impression: ITS Impressions Abdomen/Pelvis CT 08/11/25 14:19 IMPRESSION: 1. No acute abnormality. 2. Findings as above. Discharge Plan Discharge Clinical Impression: Abdominal pain, Nausea & vomiting Patient Disposition: Home Condition: Stable Instructions: Abdominal Pain (ED) Additional Instructions: You can take the medications as prescribed, and follow-up with your primary care doctor and GI specialist. You can always return to the emergency room if your pain returns or worsens. Patient Language: Frisian Prescriptions: New dicyclomine 20 mg tablet 20 mg PO TID PRN (Reason: abdominal pain) Qty: 30 0RF ondansetron 4 mg tablet,disintegrating 4 mg PO Q8H PRN (Reason: nausea and vomiting) Qty: 10 0RF No Action albuterol sulfate 90 mcg/actuation HFA aerosol inhaler 2 puff INHALATION PRN PRN (Reason: Shortness Of Breath Or Wheezing) fluticasone propion-salmeterol [Wixela Inhub] 250-50 mcg/dose blister with device 1 inh inhalation Q12H prednisone 20 mg tablet See Rx Instructions .Route .COMPLEX Qty: 9 0RF Rx Instructions: Take 40 mg daily for 3 days, 20 mg daily for 3 days Follow-up/Referrals: Minh,Justa Rodarte, [employer] [Primary Care Provider, Family Practice]
[2025-08-11 15:00] VITALS: BP 111/76; PULSE 78; RESP 18; TEMP 37.3; O2SAT 98
== END 2025-08-11 15:02 | disposition home or self-care (01) ==
PROVIDERS: Emergency Provider Emergency Medicine; PCP Nurse Practitioner
DX: R10.11 Right upper quadrant pain (principal); R11.2 Nausea with vomiting, unspecified; J45.909 Unspecified asthma, uncomplicated; Z90.49 Acquired absence of other specified parts of digestive tract; Z87.891 Personal history of nicotine dependence; K76.0 Fatty (change of) liver, not elsewhere classified
CPT/HCPCS: 36415; 74176; 80053; 81001; 81025; 83605; 83690; 85025; 96374; 99284; J2405